=== PATIENT | male | born 1940 | race Caucasian/White ===

== ENCOUNTER → 2018-09-04 | Outpatient (CLI) | payer MEDICARE, OTHER ==
[~2018-09-04] MED LIST: ACHD5005 PO; ACHYD1T PO; AZIT250T12 PO; CALC-654 PO; CEPH-507 PO; CHOL10003 PO; CHOL10007 PO; CLOT15CR6 TOP; CPR500T PO; CYAN10006 PO; DILT120T11 PO; DILT120T3 PO; DILT300C PO; DOXY100C2 PO; HYOS0.1216 PO; MINO100C2 PO; MULT-1061 PO; MULT-850 PO; NITR-65 PO; ONDN4T PO; PANT20TA2 PO; PHEN200T27 PO; TAMS0.4C2 PO; TMSL.4C PO; TRAM50TA2 PO; TRIA1CAP4 PO; TRIA1TAB3 PO
--- NOTE | 2018-09-04 12:56 | Diagnostic Imaging Report ---
PROCEDURE: CT abdomen and pelvis without contrast. TECHNIQUE: Multiple contiguous axial images were obtained through the abdomen and pelvis without the use of intravenous contrast. INDICATION: Prostate carcinoma and hematuria. COMPARISON: Comparison is made with prior CT from 11/12/2015. FINDINGS: There is some linear parenchymal density in left lower lobe suggestive of some scarring or atelectasis. Tiny subpleural nodule right middle lobe laterally is seen approximately 4 mm in size. Additional nodule just superior to this is seen in the lateral right middle lobe approximately 4 mm in size. These appear stable when compared with the prior exam. There are coronary arterial calcifications present. No discrete liver mass is seen. The gallbladder is unremarkable. The pancreas and spleen are unremarkable. No adrenal mass is identified. No renal calculi are seen. There is significant hydroureteronephrosis on the left side. 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 Left ureter is markedly dilated to the level of the bladder. Bladder is decompressed but diffusely thickwalled. There is hazy density identified in the central mesentery. There is also stranding in the fat in the pelvis as well. There is bulky lymphadenopathy identified in the left inguinal region as well as the left iliac region. Largest left inguinal node measures 4.4 x 2.5 cm. There appear to be enlarged iliac nodes on the left side. Largest node measures 3.1 x 1.5 cm. The ureter passes in close proximity to this node. No significant pathologically enlarged nodes in the central retroperitoneum are seen. Bowel loops are nondilated. There is diverticulosis of the sigmoid but no acute diverticulitis. There is no ascites. There are radiation seed implants within the prostate gland. No definite osteoblastic lesions within the visualized bony structures seen. There is edema identified in the subcutaneous tissues of the left lower extremity. IMPRESSION: 1. There has been interval development of left inguinal and left iliac lymphadenopathy. There is now significant left-sided hydroureteronephrosis. A dilated ureter is traced to the urinary bladder which appears to be diffusely thick walled. There is also edema throughout the mesentery and subcutaneous tissues of the left lower extremity, perhaps owing to lymphedema. Features are concerning for developing metastatic disease. 2. Diverticulosis without evidence of acute diverticulitis. Dictated by: Dictated on workstation # [id number]
== END ==
LOC: RAD 12:01
PROVIDERS: ATTEND Internal Medicine
DX: C61 Malignant neoplasm of prostate (principal); N13.30 Unspecified hydronephrosis; K57.30 Diverticulosis of large intestine without perforation or abscess without bleeding; R31.9 Hematuria, unspecified; R59.0 Localized enlarged lymph nodes; R60.0 Localized edema
CPT/HCPCS: 74176

== ENCOUNTER 2018-09-18 10:38 | Outpatient (CLI) | payer MEDICARE ==
[~2018-09-18] VITALS: Ht 182.9 cm; Wt 101.6 kg
[~2018-09-18 10:38] MED LIST changes: -NITR-65 PO; -ONDN4T PO; -TRAM50TA2 PO
== END 2018-09-18 10:54 | disposition home or self-care (01) ==
LOC: PREOP 10:38
PROVIDERS: ATTEND Surgery
DX: Z01.818 Encounter for other preprocedural examination (principal)

== ENCOUNTER 2018-09-19 09:01 | Inpatient (IN) | payer MEDICARE ==
[~2018-09-19] VITALS: Ht 182.9 cm; Wt 106.7 kg
--- OUTSIDE RECORDS SUMMARY | 2018-09-19 09:06 | XMS REPORT | Continuity of Care Document ---
Author Author [facility] Organization [facility] Address Unknown Phone Unavailable Allergies Active Description Code Type Severity Reaction Onset Reported/Identified Relationship to Patient Clinical Status Yes No Known Drug Allergies [id number] Drug Allergy Unknown N/A 11/13/2012 Medications There is no data. Problems Date Dx Coded Attending Type Code Diagnosis Diagnosed By 11/24/2012 Ot 185 12/11/2012 Ot 185 03/22/2013 Ot 185 MALIGN NEOPL PROSTATE 03/22/2013 Ot V58.0 ENCOUNTER FOR RADIOTHERAPY 06/12/2013 JEANMARIE TAVARES MD Ot 211.3 BENIGN NEOPLASM LG BOWEL 06/12/2013 JEANMARIE TAVARES MD Ot 562.10 DIVERTICULOSIS COLON (W/O MENT OF HEMORR 06/12/2013 JEANMARIE TAVARES MD Ot V76.51 SCREEN MAL NEOP-COLON 01/24/2014 JEFRY DUFF DO Ot 706.2 SEBACEOUS CYST 11/13/2014 SANDRINE YOUSSEF, AUGUSTINA Colon Ot 185 11/13/2014 AUGUSTINA DELUCA MD Ot 562.10 02/04/2015 MATTEO YOUSSEF, DANIELA Penn Ot 185 03/09/2015 MATTEO YOUSSEF, DANIELA Penn Ot 185 MALIGN NEOPL PROSTATE 08/13/2015 GERMAN GARZON DO Ot 786.50 09/25/2015 GERMAN GARZON DO Ot I73.9 09/25/2015 GERMAN GARZON DO Ot R06.00 10/06/2015 GERMAN GARZON DO Ot I73.9 10/06/2015 GERMAN GARZON DO Ot R06.00 10/20/2015 GERMAN GARZON DO Ot R60.0 11/06/2015 GERMAN GARZON DO Ot R60.0 11/12/2015 Ot 185 11/12/2015 Ot 185 11/12/2015 Ot V72.63 11/12/2015 Ot V72.81 11/12/2015 Ot 704.8 11/12/2015 MATTEO YOUSSEF, DANIELA Penn Ot 185 11/12/2015 GERMAN GARZON DO Ot 562.10 11/12/2015 GERMAN GARZON DO Ot 571.8 11/12/2015 ANUSHA YOUSSEF, JEANMARIE Hatch Ot V72.84 11/12/2015 JEFRY DUFF DO Ot 706.2 11/12/2015 DUFFJEFRY BATEMAN DO Ot V72.63 11/12/2015 DUFFJEFRY BATEMAN DO Ot V72.81 11/12/2015 DUFFJEFRY BATEMAN DO Ot V72.84 11/12/2015 DUFFJEFRY BATEMAN DO Ot V74.8 11/12/2015 SANDRINE YOUSSEF, AUGUSTINA Colon Ot 185 11/12/2015 SANDRINE YOUSSEF, AUGUSTINA Colon Ot 562.10 11/12/2015 MATTEO YOUSSEF, DANIELA Penn Ot 185 11/12/2015 GARZONGERMAN BROWN DO Ot 786.50 11/12/2015 GERMAN GARZON DO Ot I73.9 11/12/2015 GERMAN GARZON DO Ot R06.00 11/12/2015 GARZONGERMAN BROWN DO Ot I73.9 11/12/2015 GARZONGERMAN BROWN DO Ot R06.00 11/12/2015 GERMAN GARZON DO Ot R60.0 11/14/2015 GERMAN GARZON DO Ot I89.0 12/25/2015 GERMAN GARZON DO Ot I89.0 09/01/2018 MATTEO YOUSSEF, DANIELA Penn Ot 185 MALIGN NEOPL PROSTATE 09/01/2018 GERMAN GARZON DO Ot 562.10 DIVERTICULOSIS COLON (W/O MENT OF HEMORR 09/01/2018 GERMAN GARZON DO Ot 571.8 CHRONIC LIVER DIS NEC 09/01/2018 ANUSHA YOUSSEF, JEANMARIE Hatch Ot V72.84 EXAM PRE-OPERATIVE NOS 09/01/2018 JEFRY DUFF DO Ot 706.2 SEBACEOUS CYST 09/01/2018 JEFRY DUFF DO Ot V72.63 PRE-PROCEDURAL LABORATORY EXAMINATION 09/01/2018 JEFRY DUFF DO Ot V72.81 [id number] CARDIOVASCULAR 09/01/2018 JEFRY DUFF DO Ot V72.84 EXAM PRE-OPERATIVE NOS 09/01/2018 JEFRY DUFF DO Ot V74.8 SCREEN-BACTERIAL DIS NEC 09/01/2018 SANDRINE YOUSSEF, AUGUSTINA Colon Ot 185 MALIGN NEOPL PROSTATE 09/01/2018 SANDRINE YOUSSEF, AUGUSTINA Colon Ot 562.10 DIVERTICULOSIS COLON (W/O MENT OF HEMORR 09/01/2018 MATTEO YOUSSEF, DANIELA Penn Ot 185 MALIGN NEOPL PROSTATE 09/01/2018 GERMAN GARZON DO Ot 786.50 CHEST PAIN NOS 09/01/2018 GERMAN GARZON DO Ot I73.9 PERIPHERAL VASCULAR DISEASE, UNSPECIFIED 09/01/2018 GERMAN GARZON DO Ot R06.00 DYSPNEA, UNSPECIFIED 09/01/2018 GERMAN GARZON DO Ot I73.9 PERIPHERAL VASCULAR DISEASE, UNSPECIFIED 09/01/2018 GERMAN GARZON DO Ot R06.00 DYSPNEA, UNSPECIFIED 09/01/2018 GERMAN GARZON DO Ot R60.0 LOCALIZED EDEMA 09/01/2018 GERMAN GARZON DO Ot I89.0 LYMPHEDEMA, NOT ELSEWHERE CLASSIFIED 09/06/2018 GERMAN GARZON DO Ot C61 MALIGNANT NEOPLASM OF PROSTATE 09/06/2018 GERMAN GARZON DO Ot K57.30 DVRTCLOS OF LG INT W/O PERFORATION OR AB 09/06/2018 GERMAN GARZON DO Ot N13.30 UNSPECIFIED HYDRONEPHROSIS 09/06/2018 GERMAN GARZON DO Ot R31.9 HEMATURIA, UNSPECIFIED 09/06/2018 GERMAN GARZON DO Ot R59.0 LOCALIZED ENLARGED LYMPH NODES 09/06/2018 GERMAN GARZON DO Ot R60.0 LOCALIZED EDEMA 09/15/2018 MATTEO YOUSSEF, DANIELA Penn Ot 185 MALIGN NEOPL PROSTATE 09/15/2018 GERMAN GARZON DO Ot 562.10 DIVERTICULOSIS COLON (W/O MENT OF HEMORR 09/15/2018 GERMAN GARZON DO Ot 571.8 CHRONIC LIVER DIS NEC 09/15/2018 ANUSHA YOUSSEF, JEANMARIE Hatch Ot V72.84 EXAM PRE-OPERATIVE NOS 09/15/2018 JEFRY DUFF DO Ot 706.2 SEBACEOUS CYST 09/15/2018 JEFRY DUFF DO Ot V72.63 PRE-PROCEDURAL LABORATORY EXAMINATION 09/15/2018 JEFRY DUFF DO Ot V72.81 [id number] CARDIOVASCULAR 09/15/2018 JEFRY DUFF DO Ot V72.84 EXAM PRE-OPERATIVE NOS 09/15/2018 DUFFJEFRY BATEMAN DO Ot V74.8 SCREEN-BACTERIAL DIS NEC 09/15/2018 SANDRINE YOUSSEF, AUGUSTINA Colon Ot 185 MALIGN NEOPL PROSTATE 09/15/2018 SANDRINE YOUSSEF, AUGUSTINA Colon Ot 562.10 DIVERTICULOSIS COLON (W/O MENT OF HEMORR 09/15/2018 MATTEO YOUSSEF, DANIELA Penn Ot 185 MALIGN NEOPL PROSTATE 09/15/2018 GERMAN GARZON DO Ot 786.50 CHEST PAIN NOS 09/15/2018 GERMAN GARZON DO Ot I73.9 PERIPHERAL VASCULAR DISEASE, UNSPECIFIED 09/15/2018 GERMAN GARZON DO Ot R06.00 DYSPNEA, UNSPECIFIED 09/15/2018 GERMAN GARZON DO, Ot I73.9 PERIPHERAL VASCULAR DISEASE, UNSPECIFIED 09/15/2018 GERMAN GARZON DO, Ot R06.00 DYSPNEA, UNSPECIFIED 09/15/2018 GERMAN GARZON DO Ot R60.0 LOCALIZED EDEMA 09/15/2018 GERMAN GARZON DO Ot I89.0 LYMPHEDEMA, NOT ELSEWHERE CLASSIFIED 09/15/2018 GERMAN GARZON DO Ot C61 MALIGNANT NEOPLASM OF PROSTATE 09/15/2018 GERMAN GARZON DO Ot K57.30 DVRTCLOS OF LG INT W/O PERFORATION OR AB 09/15/2018 GERMAN GARZON DO Ot N13.30 UNSPECIFIED HYDRONEPHROSIS 09/15/2018 GERMAN GARZON DO Ot R31.9 HEMATURIA, UNSPECIFIED 09/15/2018 GERMAN GARZON DO Ot R59.0 LOCALIZED ENLARGED LYMPH NODES 09/15/2018 GERMAN GARZON DO Ot R60.0 LOCALIZED EDEMA 09/15/2018 IRLANDA UMAÑA MD Ot C61 MALIGNANT NEOPLASM OF PROSTATE 09/15/2018 IRLANDA UMAÑA MD Ot E87.6 HYPOKALEMIA 09/15/2018 IRLANDA UMAÑA MD Ot I10 ESSENTIAL (PRIMARY) HYPERTENSION 09/15/2018 IRLANDA UMAÑA MD Ot I89.0 LYMPHEDEMA, NOT ELSEWHERE CLASSIFIED 09/15/2018 IRLANDA UMAÑA MD Ot K57.30 DVRTCLOS OF LG INT W/O PERFORATION OR AB 09/15/2018 IRLANDA UMAÑA MD Ot K80.20 CALCULUS OF GALLBLADDER W/O CHOLECYSTITI 09/15/2018 IRLANDA UMAÑA MD Ot N13.30 UNSPECIFIED HYDRONEPHROSIS 09/15/2018 IRLANDA UMAÑA MD Ot R11.2 NAUSEA WITH VOMITING, UNSPECIFIED 09/15/2018 IRLANDA UAMÑA MD Ot R21 RASH AND OTHER NONSPECIFIC SKIN ERUPTION 09/15/2018 IRLANDA UMAÑA MD Ot R59.0 LOCALIZED ENLARGED LYMPH NODES 09/15/2018 IRLANDA UMAÑA MD Ot Z92.3 PERSONAL HISTORY OF IRRADIATION 09/19/2018 MATTEO YOUSSEF, DANIELA Penn Ot 185 MALIGN NEOPL PROSTATE 09/19/2018 GERMAN GARZON DO Ot 562.10 DIVERTICULOSIS COLON (W/O MENT OF HEMORR 09/19/2018 GERMAN GARZON DO Ot 571.8 CHRONIC LIVER DIS NEC 09/19/2018 ANUSHA YOUSSEF, JEANMARIE Hatch Ot V72.84 EXAM PRE-OPERATIVE NOS 09/19/2018 JEFRY DUFF DO Ot 706.2 SEBACEOUS CYST 09/19/2018 JEFRY DUFF DO Ot V72.63 PRE-PROCEDURAL LABORATORY EXAMINATION 09/19/2018 JEFRY DUFF DO Ot V72.81 [id number]-[id number] CARDIOVASCULAR 09/19/2018 JEFRY DUFF DO Ot V72.84 EXAM PRE-OPERATIVE NOS 09/19/2018 JEFRY DUFF DO Ot V74.8 SCREEN-BACTERIAL DIS NEC 09/19/2018 AUGUSTINA DELUCA MD Ot 185 MALIGN NEOPL PROSTATE 09/19/2018 AUGUSTINA DELUCA MD Ot 562.10 DIVERTICULOSIS COLON (W/O MENT OF HEMORR 09/19/2018 DANIELA FELIPE MD Ot 185 MALIGN NEOPL PROSTATE 09/19/2018 GERMAN GARZON DO Ot 786.50 CHEST PAIN NOS 09/19/2018 GERMAN GARZON DO Ot I73.9 PERIPHERAL VASCULAR DISEASE, UNSPECIFIED 09/19/2018 GERMAN GARZON DO Ot R06.00 DYSPNEA, UNSPECIFIED 09/19/2018 GERMAN GARZON DO Ot I73.9 PERIPHERAL VASCULAR DISEASE, UNSPECIFIED 09/19/2018 RYANN VILLALOBOS GERMAN [place] Ot R06.00 DYSPNEA, UNSPECIFIED 09/19/2018 RYANN VILLALOBOS GERMAN Wil Ot R60.0 LOCALIZED EDEMA 09/19/2018 GARZON DO GERMAN [place] Ot I89.0 LYMPHEDEMA, NOT ELSEWHERE CLASSIFIED 09/19/2018 RYANN VILLALOBOS GERMAN Wil Ot C61 MALIGNANT NEOPLASM OF PROSTATE 09/19/2018 RYANN VILLALOBOS GERMAN Wil Orellana K57.30 DVRTCLOS OF LG INT W/O PERFORATION OR AB 09/19/2018 RYANN VILLALOBOS GERMAN Wil Ot N13.30 UNSPECIFIED HYDRONEPHROSIS 09/19/2018 RYANN VILLALOBOS GERMAN Wil Ot R31.9 HEMATURIA, UNSPECIFIED 09/19/2018 RYANN VILLALOBOS GERMAN Wil Ot R59.0 LOCALIZED ENLARGED LYMPH NODES 09/19/2018 RYANN VILLALOBOS GERMAN Wil Orellana R60.0 LOCALIZED EDEMA Procedures There is no data. Results Test Result Range Complete blood count (CBC) with automated white blood cell (WBC) differential - 09/14/18 21:39 Blood leukocytes automated count (number/volume) 8.4 10*3/uL 4.3-11.0 Blood erythrocytes automated count (number/volume) 5.21 10*6/uL 4.35-5.85 Venous blood hemoglobin measurement (mass/volume) 14.5 g/dL 13.3-17.7 Blood hematocrit (volume fraction) 43 % 40-54 Automated erythrocyte mean corpuscular volume 83 [foz_us] 80-99 Automated erythrocyte mean corpuscular hemoglobin (mass per erythrocyte) 28 pg 25-34 Automated erythrocyte mean corpuscular hemoglobin concentration measurement ( mass/volume) 33 g/dL 32-36 Automated erythrocyte distribution width ratio 14.6 % 10.0-14.5 Automated blood platelet count (count/volume) 320 10*3/uL 130-400 Automated blood platelet mean volume measurement 9.0 [foz_us] 7.4-10.4 Automated blood neutrophils/100 leukocytes 74 % 42-75 Automated blood lymphocytes/100 leukocytes 15 % 12-44 Blood monocytes/100 leukocytes 8 % 0-12 Automated blood eosinophils/100 leukocytes 2 % 0-10 Automated blood basophils/100 leukocytes 1 % 0-10 Blood neutrophils automated count (number/volume) 6.2 10*3 1.8-7.8 Blood lymphocytes automated count (number/volume) 1.3 10*3 1.0-4.0 Blood monocytes automated count (number/volume) 0.7 10*3 0.0-1.0 Automated eosinophil count 0.2 10*3/uL 0.0-0.3 Automated blood basophil count (count/volume) 0.1 10*3/uL 0.0-0.1 Comprehensive metabolic panel - 09/14/18 21:39 Serum or plasma sodium measurement (moles/volume) 138 mmol/L 135-145 Serum or plasma potassium measurement (moles/volume) 3.1 mmol/L 3.6-5.0 Serum or plasma chloride measurement (moles/volume) 100 mmol/L 98-107 Carbon dioxide 26 mmol/L 21-32 Serum or plasma anion gap determination (moles/volume) 12 mmol/L 5-14 Serum or plasma urea nitrogen measurement (mass/volume) 11 mg/dL 7-18 Serum or plasma creatinine measurement (mass/volume) 1.13 mg/dL 0.60-1.30 Serum or plasma urea nitrogen/creatinine mass ratio 10 NRG Serum or plasma creatinine measurement with calculation of estimated glomerular filtration rate > NRG Serum or plasma glucose measurement (mass/volume) 147 mg/dL 70-105 Serum or plasma calcium measurement (mass/volume) 9.5 mg/dL 8.5-10.1 Serum or plasma total bilirubin measurement (mass/volume) 0.3 mg/dL 0.1-1.0 Serum or plasma alkaline phosphatase measurement (enzymatic activity/volume) 82 U/L 40-136 Serum or plasma aspartate aminotransferase measurement (enzymatic activity/ volume) 22 U/L 5-34 Serum or plasma alanine aminotransferase measurement (enzymatic activity/volume ) 11 U/L 0-55 Serum or plasma protein measurement (mass/volume) 8.2 g/dL 6.4-8.2 Serum or plasma albumin measurement (mass/volume) 3.9 g/dL 3.2-4.5 CALCIUM CORRECTED 9.6 mg/dL 8.5-10.1 Magnesium - 09/14/18 21:39 Magnesium 2.0 mg/dL 1.8-2.4 Serum or plasma troponin i.cardiac measurement (mass/volume) - 09/14/18 21:39 Serum or plasma troponin i.cardiac measurement (mass/volume) < ng/ mL <0.30 PT panel in platelet poor plasma by coagulation assay - 09/14/18 21:39 Prothrombin time (PT) in platelet poor plasma by coagulation assay 12.8 s 12.2-14.7 INR in platelet poor plasma or blood by coagulation assay 1.0 0.8-1.4 Activated partial thromboplastin time (aPTT) in platelet poor plasma bycoagulation assay - 09/14/18 21:39 Activated partial thromboplastin time (aPTT) in platelet poor plasma bycoagulation assay 31 s 24-35 Myoglobin, serum - 09/14/18 21:39 Myoglobin, serum 49.6 ng/mL 10.0-92.0 Lipase - 09/14/18 21:39 Lipase 34 U/L 8-78 Bacterial blood culture - 09/15/18 00:17 Bacterial blood culture [facility] Blood lactic acid measurement (moles/volume) - 09/15/18 00:27 Blood lactic acid measurement (moles/volume) 1.51 mmol/L 0.50-2.00 Bacterial blood culture - 09/15/18 01:17 Bacterial blood culture [facility] Complete blood count (CBC) with automated white blood cell (WBC) differential - 09/15/18 03:10 Blood leukocytes automated count (number/volume) 11.6 10*3/uL 4.3-11.0 Blood erythrocytes automated count (number/volume) 4.70 10*6/uL 4.35-5.85 Venous blood hemoglobin measurement (mass/volume) 13.0 g/dL 13.3-17.7 Blood hematocrit (volume fraction) 40 % 40-54 Automated erythrocyte mean corpuscular volume 84 [foz_us] 80-99 Automated erythrocyte mean corpuscular hemoglobin (mass per erythrocyte) 28 pg 25-34 Automated erythrocyte mean corpuscular hemoglobin concentration measurement ( mass/volume) 33 g/dL 32-36 Automated erythrocyte distribution width ratio 14.4 % 10.0-14.5 Automated blood platelet count (count/volume) 251 10*3/uL 130-400 Automated blood platelet mean volume measurement 9.5 [foz_us] 7.4-10.4 Automated blood neutrophils/100 leukocytes 88 % 42-75 Automated blood lymphocytes/100 leukocytes 5 % 12-44 Blood monocytes/100 leukocytes 7 % 0-12 Automated blood eosinophils/100 leukocytes 0 % 0-10 Automated blood basophils/100 leukocytes 0 % 0-10 Blood neutrophils automated count (number/volume) 10.1 10*3 1.8-7.8 Blood lymphocytes automated count (number/volume) 0.6 10*3 1.0-4.0 Blood monocytes automated count (number/volume) 0.8 10*3 0.0-1.0 Automated eosinophil count 0.0 10*3/uL 0.0-0.3 Automated blood basophil count (count/volume) 0.0 10*3/uL 0.0-0.1 Comprehensive metabolic panel - 09/15/18 03:10 Serum or plasma sodium measurement (moles/volume) 137 mmol/L 135-145 Serum or plasma potassium measurement (moles/volume) 3.4 mmol/L 3.6-5.0 Serum or plasma chloride measurement (moles/volume) 100 mmol/L 98-107 Carbon dioxide 26 mmol/L 21-32 Serum or plasma anion gap determination (moles/volume) 11 mmol/L 5-14 Serum or plasma urea nitrogen measurement (mass/volume) 10 mg/dL 7-18 Serum or plasma creatinine measurement (mass/volume) 0.93 mg/dL 0.60-1.30 Serum or plasma urea nitrogen/creatinine mass ratio 11 NRG Serum or plasma creatinine measurement with calculation of estimated glomerular filtration rate > NRG Serum or plasma glucose measurement (mass/volume) 126 mg/dL 70-105 Serum or plasma calcium measurement (mass/volume) 9.0 mg/dL 8.5-10.1 Serum or plasma total bilirubin measurement (mass/volume) 0.4 mg/dL 0.1-1.0 Serum or plasma alkaline phosphatase measurement (enzymatic activity/volume) 69 U/L 40-136 Serum or plasma aspartate aminotransferase measurement (enzymatic activity/ volume) 21 U/L 5-34 Serum or plasma alanine aminotransferase measurement (enzymatic activity/volume ) 11 U/L 0-55 Serum or plasma protein measurement (mass/volume) 6.9 g/dL 6.4-8.2 Serum or plasma albumin measurement (mass/volume) 3.4 g/dL 3.2-4.5 CALCIUM CORRECTED 9.5 mg/dL 8.5-10.1 Lipid 1996 panel - 09/15/18 03:10 Serum or plasma triglyceride measurement (mass/volume) 92 mg/dL <150 Serum or plasma cholesterol measurement (mass/volume) 194 mg/dL < 200 Serum or plasma cholesterol in HDL measurement (mass/volume) 51 mg/ dL 40-60 Cholesterol in LDL [mass/volume] in serum or plasma by direct assay 127 mg/dL 1-129 Serum or plasma cholesterol in VLDL measurement (mass/volume) 18 mg/ dL 5-40 Blood manual differential performed detection - 09/15/18 03:10 Blood monocytes/100 leukocytes 4 % NRG Manual blood segmented neutrophils/100 leukocytes 89 % NRG Blood band neutrophils/100 leukocytes 3 % NRG Manual blood lymphocytes/100 leukocytes 4 % NRG Manual eosinophils/100 leukocytes in nose 0 % NRG Manual blood basophils/100 leukocytes 0 % NRG Blood ovalocytes detection by light microscopy SLIGHT NRG Serum or plasma troponin i.cardiac measurement (mass/volume) - 09/15/18 03:10 Serum or plasma troponin i.cardiac measurement (mass/volume) < ng/ mL <0.30 Encounters ACCT No. Visit Date/Time Discharge Status Pt. Type Provider Facility Loc./Unit Complaint [id number] 09/18/2018 10:38:00 09/18/2018 10:54:00 DIS Outpatient MALORIE YOUSSEF, [place] [facility] PREOP CHLELITHIASIS [id number] 09/15/2018 00:27:00 09/15/2018 18:00:00 DIS Inpatient CHASIDY YOUSSEF, IRLANDA [place] [facility] 4TH CHEST PAIN,N/V,METS PROSTATE CA [id number] 09/04/2018 12:01:00 09/04/2018 23:59:59 CLS Outpatient GERMAN GARZON DO [facility] RAD CA PROSTATE, HEMATURIA [id number] 11/12/2015 13:52:00 11/12/2015 23:59:59 CLS Outpatient GERMAN GARZON DO [facility] RAD LYMPHODEMA [id number] 10/16/2015 09:18:00 10/16/2015 23:59:59 CLS Outpatient GERMAN GARZON DO [facility] RAD EDEMA LEFT CALF AND FOOT [id number] 09/09/2015 09:16:00 09/09/2015 23:59:59 CLS Outpatient GARZON DO, GERMAN J [facility] RAD DYSPNEA,CLAUDICATION [id number] 09/05/2015 11:04:00 09/05/2015 23:59:59 CLS Outpatient GERMAN GARZON DO [facility] RAD DYSPNEA, CLAUDICATION , SYMPTOM [id number] 07/22/2015 14:20:00 07/22/2015 23:59:59 CLS Outpatient GERMAN GARZON DO [facility] CARD CHEST PAIN [id number] 03/10/2015 00:08:00 03/10/2015 23:59:59 CLS Preadmit DANIELA FELIPE MD [facility] ONC [id number] 12/09/2014 09:50:00 03/09/2015 00:01:00 DIS Outpatient DANIELA FELIPE MD [facility] ONC [id number] 10/23/2014 12:05:00 10/23/2014 23:59:59 CLS Outpatient AUGUSTINA DELUCA MD [facility] CARD PROSTATE CANCER [id number] 01/24/2014 06:15:00 01/24/2014 11:42:00 DIS Outpatient JEFRY DUFF DO [facility] SDC CYST ON BACK [id number] 01/23/2014 09:44:00 01/23/2014 23:59:59 CLS Outpatient JEFRY DUFF DO [facility] PREOP CYST ON BACK [id number] 06/12/2013 07:48:00 06/12/2013 09:55:00 DIS Outpatient JEANMARIE TAVARES MD [facility] SDC SCREENING [id number] 06/07/2013 07:15:00 06/07/2013 23:59:59 CLS Outpatient JEANMARIE TAVARES MD [facility] PREOP SCREENING [id number] 05/22/2013 08:14:00 05/22/2013 23:59:59 CLS Outpatient GERMAN GARZON DO [facility] RAD LT LOWER QUAD PAIN [id number] 05/21/2013 09:04:00 05/21/2013 23:59:59 CLS Outpatient DANIELA FELIPE MD E [facility] ONC [id number] 09/19/2018 09:01:00 ACT Outpatient MALORIE YOUSSEF, [place] [facility] SDC CHOLELITHIASIS [id number] 01/17/2013 16:18:00 Document Registration [id number] 12/22/2012 08:48:00 Document Registration [id number] 11/24/2012 06:00:00 Document Registration [id number] 11/13/2012 15:29:00 Document Registration [id number] 09/12/2012 08:50:00 Document Registration [id number] 08/25/2012 11:16:00 Document Registration
[2018-09-19 09:15] VITALS: BP 144/84
[2018-09-19] MEDS ORDERED: BUP/EPI 0.5% 1:200,000 (SENSORCAINE) 30 ML VIAL ONE (09:15)
--- NOTE | 2018-09-19 09:28 | Progress Note-Pre Operative ---
Pre-Operative Progress Note H&P Reviewed The H&P was reviewed, patient examined and no changes noted. Date Seen by Provider: Sep 15, 2018 Time Seen by Provider: 11:20 Date H&P Reviewed: Sep 19, 2018 Time H&P Reviewed: 09:27 Pre-Operative Diagnosis: gallstones TC ESPANA MD Sep 19, 2018 09:28
[2018-09-19] MEDS ORDERED: DEXAMETHASONE 10 MG/ML (DECADRON) 1 ML VIAL ONE (09:36)
[2018-09-19] MEDS ORDERED: proPOfol 200 MG/20 ML (DIPRIVAN) VIAL IV ONE (09:36)
[2018-09-19] MEDS ORDERED: MIDAZOLAM 2 MG/2 ML (VERSED) VIAL ONE (09:36)
[2018-09-19] MEDS ORDERED: ONDANSETRON 4 MG/2 ML (SDV) Z0FRAN ONE (09:36)
[2018-09-19] MEDS ORDERED: LIDOCAINE PF 2% 5 ML (XYLOCAINE) VIAL ONE (09:36)
[2018-09-19] MEDS ORDERED: fentaNYL INJECTION 100 MCG/2 ML AMP ONE ×3 (09:36→11:12)
[2018-09-19] MEDS ORDERED: LIDOCAINE JELLY 2% 6 ML SYRINGE ONE (09:40)
[2018-09-19] MEDS: LACTATED RINGERS 1,000 ML IV PRN ×2 (09:40→11:30)
[2018-09-19] MEDS ORDERED: SEVOFLURANE (ULTANE) 15 ML INHAL SOLN ONE ×12 (09:43→12:56)
[2018-09-19] MEDS ORDERED: ROCURONIUM 10 MG/ML 5 ML SYRINGE IV ONE ×2 (09:44→11:28)
[2018-09-19] MEDS ORDERED: metroNIDAZOLE 500MG/100ML IVPB 100 ML IV ONE (10:00)
[2018-09-19] MEDS ORDERED: ceFAZolin INJECTION 1,000 MG in NS (IVPB) 50 ML IV ONE (10:00)
[2018-09-19] MEDS ORDERED: ONDANSETRON 4 MG/2 ML (SDV) Z0FRAN IVP PRN ×2 (10:15→13:45)
[2018-09-19] MEDS ORDERED: MEPERIDINE (DEMEROL) INJ 50 MG/ML IVP ONE ×2 (10:15→12:45)
[2018-09-19] MEDS ORDERED: morphine INJ 10 MG/ML 1ML (SYR OR VIAL) IVP ONE ×2 (10:15→12:45)
[2018-09-19] MEDS ORDERED: KETOROLAC 30 MG/ML VIAL IVP ONE ×2 (10:15→12:45)
[2018-09-19] MEDS ORDERED: ESMOLOL 100 MG/10 ML (BREVIBLOC) VIAL ONE (11:39)
[2018-09-19] MEDS ORDERED: PHENYLEPHRINE 100 MCG/ML 10 ML (ANESTHESIA) SYR ONE (12:08)
[2018-09-19] MEDS ORDERED: NEOSTIGMINE 1 MG/ML 5 ML SYRINGE ONE (12:31)
[2018-09-19] MEDS ORDERED: GLYCOPYRROLATE 0.2 MG/ML (ROBINUL) 2 ML VIAL ONE (12:31)
[2018-09-19] MEDS ORDERED: fentaNYL INJECTION 100 MCG/2 ML AMP IVP ONE (12:45)
--- NOTE | 2018-09-19 13:43 | Operative Report ---
Operative Report Date of Procedure/Surgery Sep 19, 2018 Surgeon (s) TC ESPANA MD Stripper Opaquer (s): N/A Post-Operative Diagnosis Acute gangrenous cholecystitis Procedure Performed Robotic converted to open cholecystectomy Description of Procedure Anesthesia Type: General Estimated blood loss (mL): minimal Specimen(s) collected/removed gallbladder with stones Description of the Procedure Indication for the procedure: This gentleman was scheduled to undergo an elective cholecystectomy using minimally invasive technique with robotic assistance. His ultrasound examination indicated uncomplicated gallstones. informed consent was obtained after reviewing the operative details and complications of wound infection, bile leak and cardia respiratory dysfunction. Description of the procedure: He was placed supine on the operating table and general anesthesia induced. Ancef and Flagyl were administered intravenously as prophylaxis against wound infection. Sequential compression devices were placed around his legs, to minimize the risk of venous thrombosis. Abdomen was prepared and draped in the usual sterile manner. A 5 mm vertical incision was made and the umbilicus itself and the fascia opened 5 blunt dissection. A 12 mm trocar was placed and pneumoperitoneum established using carbon dioxide, intra-abdominal pressure of 15 mmHg. Anatomy was visualized using the high definition, 3-dimensional laparoscope associated with da Floresita system. Omentum and transverse colon were adherent to the anterior abdominal wall, just adjacent to the falciform ligament. under direct view, I placed an 8 mm trocar over each side of the abdomen, followed by a 5 mm trocar over the left subcostal margin. Omentum was taken down by blunt dissection, without any iatrogenic injury to the transverse colon. Subsequently , the patient was turned in the reverse Trendelenburg position with the right side tilted and the robotic system docked in place. Omentum and transverse colon were gently from the subhepatic region, revealing a phlegmon containing a gangrenous gallbladder. It was decompressed at the fundus to facilitate dissection. Dissection progressed toward the neck of the gallbladder revealing gangrenous changes. 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 It became clear that progress could not be made by minimally invasive approach and therefore I elected to convert to an open technique. Open cholecystectomy: A subcostal incision was made and abdomen entered safely. Omentum and transverse colon were gently packed out of the way and a fundus first technique of cholecystectomy was performed. The phlegmon around Calot's triangle was carefully , revealing the cystic duct and artery. The latter was first controlled between ligaclips. Cystic duct was controlled using a total of 3 PDS Endoloops, reinforced with ligaclips. Subhepatic and the perihepatic areas were thoroughly irrigated with warm saline. A 10 [place] Rohit-Whatley drain was left in the subhepatic space in anticipation of bile leak. It was acute with 2-0 silk sutures. With reference to the subcostal incision, peritoneum was closed using 3-0 PDS. The fascial layer was closed using #2 Prolene and the subcutaneous tissue with 3 -0 PDS. Skin was closed using 4-0 Vicryl, in a subcuticular fashion. The fascia over the umbilical incision was closed using 1 Vicryl. All the other skin incisions were closed using 4-0 Vicryl, in a subcuticular fashion. 0.5 percent Marcaine with epinephrine was infiltrated along the incisions, both preemptively and at the conclusion of the operation. He tolerated the procedure well, was extubated in the operating room and taken to the recovery room in a stable condition. Findings of the Procedure See op report Allergies and Home Medications Allergies Coded Allergies: No Known Drug Allergies (Unverified , 11/13/12) Home Medications Calcium Carbonate/Vitamin D3 1 Each Tablet, 1 TAB PO DAILY, (Reported) Clotrimazole/Betamethasone Dip 15 Gm Cream..g., TOP HS, (Reported) Cyanocobalamin (Vitamin B-12) 1,000 Mcg Tablet, 1,000 MCG PO DAILY, (Reported) Diltiazem HCl 120 Mg Tablet, 120 MG PO BID, (Reported) Minocycline HCl 100 Mg Capsule, 100 MG PO DAILY, (Reported) Pantoprazole Sodium 20 Mg Tablet.dr, 20 MG PO DAILY Prescribed by: SUSY OLIVEIRA on 09/15/18 1442 Tamsulosin HCl 0.4 Mg Cap.er.24h, 0.4 MG PO DAILY, (Reported) Triamterene/Hydrochlorothiazid 1 Each Capsule, 1 CAP PO DAILY, (Reported) Patient Home Medication List Home Medication List Reviewed: Yes Copy Copies To 1: GERMAN GARZON DO Copies To 2: SUSY OLIVEIRA MD, XAVIER M MD Sep 19, 2018 13:43
[2018-09-19] MEDS ORDERED: fentaNYL INJECTION 100 MCG/2 ML AMP IV PRN (13:45)
[2018-09-19] MEDS ORDERED: PIPERACILLIN SODIUM/TAZOBACTAM 4.5 GM in NS (IVPB) 100 ML IV SCH (13:45)
[2018-09-19] MEDS ORDERED: HYDROcodone/APAP 5 MG/325 MG (LORTAB) TAB PO PRN (13:45)
[2018-09-19] MEDS: LACTATED RINGERS 1,000 ML IV SCH ×2 (14:41→20:11)
[2018-09-19] MEDS ORDERED: PIPERACILLIN/TAZO 4.5 GM/NS 100 ML IV NR ×2 (14:45)
[2018-09-19 15:00] VITALS: BP 147/89
[2018-09-19 17:00] VITALS: BP 138/86
[2018-09-19] MEDS: TAMSULOSIN 0.4 MG (FLOMAX) CAP PO SCH (18:04)
[2018-09-19] MEDS: PIPERACILLIN/TAZO 4.5 GM/NS 100 ML IV SCH ×2 (20:11)
[2018-09-19] MEDS: DILTIAZEM 120 MG (CARDIZEM CD) CAP PO SCH (20:12)
[2018-09-19 21:00] VITALS: BP 123/90
[2018-09-19 22:00] VITALS: BP 134/92
[2018-09-19 23:00] VITALS: BP 114/78
[2018-09-20] VITALS (13 sets, daily range): BP systolic 109–130; BP diastolic 67–86
[2018-09-20 04:02] LABS: BASOPHILS % (AUTO) 0 % (0-10); EOSINOPHILS % (AUTO) 0 % (0-10); HEMATOCRIT 37 % (40-54); HEMOGLOBIN 12.2 G/DL (13.3-17.7); LYMPHOCYTES # (AUTO) 0.7 X 10^3 (1.0-4.0); LYMPHOCYTES % (AUTO) 6 % (12-44); MEAN CORPUSCULAR HEMOGLOBIN 28 PG (25-34); MEAN CORPUSCULAR HGB CONC 33 G/DL (32-36); MEAN CORPUSCULAR VOLUME 84 FL (80-99); MEAN PLATELET VOLUME 9.1 FL (7.4-10.4); MONOCYTES # (AUTO) 0.8 X 10^3 (0.0-1.0); MONOCYTES % (AUTO) 7 % (0-12); NEUTROPHILS # (AUTO) 10.8 X 10^3 (1.8-7.8); NEUTROPHILS % (AUTO) 88 % (42-75); PLATELET COUNT 318 10^3/uL (130-400); RED BLOOD COUNT 4.43 10^6/uL (4.35-5.85); RED CELL DISTRIBUTION WIDTH 14.9 % (10.0-14.5); WHITE BLOOD COUNT 12.3 10^3/uL (4.3-11.0)
[2018-09-20 04:30] LABS: BAND NEUTROPHILS 0 %; BASOPHILS % (MANUAL) 0 %; EOSINOPHILS % (MANUAL) 0 %; LYMPHOCYTES % (MANUAL) 4 %; MONOCYTES % (MANUAL) 2 %; NEUTROPHILS % (MANUAL) 88 %; RBC MORPH NORMAL; REACTIVE LYMPHOCYTES 6 %
[2018-09-20 04:48] LABS: ALANINE AMINOTRANSFERASE 35 U/L (0-55); ALKALINE PHOSPHATASE 136 U/L (40-136); BILIRUBIN,TOTAL 0.4 MG/DL (0.1-1.0); BUN/CREATININE RATIO 18; CALCIUM 8.9 MG/DL (8.5-10.1); CARBON DIOXIDE 24 MMOL/L (21-32); CHLORIDE 99 MMOL/L (98-107); CREATININE SERUM 0.99 MG/DL (0.60-1.30); GFR ESTIMATED > 60; GLUCOSE 160 MG/DL (70-105); POTASSIUM 4.3 MMOL/L (3.6-5.0); SODIUM 134 MMOL/L (135-145); TOTAL PROTEIN 6.9 GM/DL (6.4-8.2)
[2018-09-20] MEDS: PIPERACILLIN/TAZO 4.5 GM/NS 100 ML IV SCH ×4 (05:35→12:59)
[2018-09-20] MEDS ORDERED: KCL 20 MEQ TAB (K-DUR) PO SCH (06:00)
[2018-09-20] MEDS ORDERED: MAGNESIUM 1 GM/100 ML IVPB 100 ML IV SCH (06:00)
[2018-09-20] MEDS ORDERED: POTASSIUM CL 10MEQ/50ML IVPB 50 ML IV SCH (06:00)
[2018-09-20] MEDS: CALCIUM CARB + VIT D 600 MG (CALCARB + D) TAB PO SCH (07:06)
[2018-09-20] MEDS: CYANOCOBALAMIN 1,000 MCG (VITAMIN B-12) TABLET PO SCH (07:06)
[2018-09-20] MEDS: TRIAMTERENE/HCTZ 75-50 (MAXZIDE,DYAZIDE) TABLET PO SCH (08:24)
[2018-09-20] MEDS: DILTIAZEM 120 MG (CARDIZEM CD) CAP PO SCH ×2 (08:24→20:26)
[2018-09-20] MEDS: PANTOPRAZOLE 20 MG TABLET (PROTONIX) PO SCH (08:24)
[2018-09-20] MEDS ORDERED: NON-FORMULARY MEDICATION 1 EA EA (Minocycline HCl 100 MG) PO SCH (09:00)
--- NOTE | 2018-09-20 10:17 | Diagnostic Imaging Report ---
Clinical indication: Patient postop laparoscopic cholecystectomy. Exam: Portable chest x-ray, upright view. Comparison: Portable chest x-ray dated 09/14/2018. Findings: There is progression of the low lung volumes seen bilaterally with suspected bibasilar atelectasis. There is no evidence of pleural effusion or pneumothorax. Pulmonary vasculature is within normal limits and cardiac silhouette is within normal limits for portable projection. The remainder of this exam shows no significant interval change compared to the prior study of comparison. Impression: Interval decreased lung volumes with suspected progression of bibasilar atelectasis. Dictated by: Dictated on workstation # [id number]
--- NOTE | 2018-09-20 10:43 | Anesthesia-General Post-Op ---
General Patient Condition Mental Status/LOC: Same as Preop Cardiovascular: Satisfactory Nausea/Vomiting: Absent Respiratory: Satisfactory Pain: Controlled Complications: Absent Post Op Complications Complications None Follow Up Care/Instructions Patient Instructions None needed. Anesthesia/Patient Condition Patient Condition Patient is doing well, no complaints, stable vital signs, no apparent adverse anesthesia problems. No complications reported per nursing. LUCA MEDLEY CRNA Sep 20, 2018 10:43
[2018-09-20] MEDS ORDERED: MAGNESIUM CITRATE 300 ML BTL PO NR (14:15)
--- NOTE | 2018-09-20 14:21 | Progress Note-Standard ---
Standard Progress Note Progress Notes/Assess & Plan Date Seen by a Provider: Sep 20, 2018 Time Seen by a Provider: 14:20 Progress/Assessment & Plan no specific symptoms. Afebrile. Vital signs are stable. Minimal output from the drain with no bile. Incisions dry. Lungs clear. Encouraged increased use of spirometry and ambulation. Advance diet. Final Diagnosis acute gangrenous cholecystitis TC ESPANA MD Sep 20, 2018 14:21
[2018-09-20] MEDS: TAMSULOSIN 0.4 MG (FLOMAX) CAP PO SCH (17:38)
[2018-09-21] VITALS: BP 133/71
[2018-09-21 04:33] VITALS: BP 134/69
[2018-09-21] MEDS: CYANOCOBALAMIN 1,000 MCG (VITAMIN B-12) TABLET PO SCH (06:25)
[2018-09-21] MEDS: CALCIUM CARB + VIT D 600 MG (CALCARB + D) TAB PO SCH (06:25)
[2018-09-21] MEDS: PANTOPRAZOLE 20 MG TABLET (PROTONIX) PO SCH (06:25)
[2018-09-21] MEDS ORDERED: MAGNESIUM CITRATE 300 ML BTL PO NR (08:00)
[2018-09-21 08:07] VITALS: BP 128/66
[2018-09-21] MEDS: DILTIAZEM 120 MG (CARDIZEM CD) CAP PO SCH (08:07)
[2018-09-21] MEDS: TRIAMTERENE/HCTZ 75-50 (MAXZIDE,DYAZIDE) TABLET PO SCH (08:07)
--- NOTE | 2018-09-21 08:52 | Progress Note-Standard ---
Standard Progress Note Progress Notes/Assess & Plan Date Seen by a Provider: Sep 21, 2018 Time Seen by a Provider: 08:52 Progress/Assessment & Plan no specific symptoms. Afebrile. Vital signs are stable. Minimal output from the drain with no bile. Incisions dry. Lungs clear. Encouraged increased use of spirometry and ambulation. Advance diet. Afebrile, no bile in the drain. Pain control adequate. Motivated to be discharged. Final Diagnosis Acute gangrenous cholecystitis TC ESPANA MD Sep 21, 2018 08:52
--- NOTE | 2018-09-21 08:55 | Discharge Summary ---
Diagnosis/Chief Complaint Date of Admission Sep 20, 2018 at 10:20 Date of Discharge 09/21/18 Discharge Date: Sep 21, 2018 Discharge Time: 08:53 Admission Diagnosis Admission Diagnosis Gallstones Discharge Diagnosis Acute gangrenous cholecystitis due to gallstones Reason Hospital Visit Admitted electively to undergo cholecystectomy, found to have a gangrenous cholecystitis, requiring conversion to an open procedure Discharge Summary Procedures Robotic converted to open cholecystectomy Consultations None Discharge Physical Examination Allergies: Coded Allergies: No Known Drug Allergies (Unverified , 11/13/12) Vitals & I&Os Vital Signs Date Time Temp Pulse Resp B/P (MAP) Pulse Ox O2 Delivery O2 Flow Rate FiO2 09/21/18 08:07 96.8 92 24 128/66 (86) 93 Room Air 09/19/18 15:04 4.00 Hospital Course Labs (last 24 hrs) Laboratory Tests 09/20/18 03:55: White Blood Count 12.3H, Red Blood Count 4.43, Hemoglobin 12.2L, Hematocrit 37L , Mean Corpuscular Volume 84, Mean Corpuscular Hemoglobin 28, Mean Corpuscular Hemoglobin Concent 33, Red Cell Distribution Width 14.9H, Platelet Count 318, Mean Platelet Volume 9.1, Neutrophils (%) (Auto) 88H, Lymphocytes (%) (Auto) 6L , Monocytes (%) (Auto) 7, Eosinophils (%) (Auto) 0, Basophils (%) (Auto) 0, Neutrophils # (Auto) 10.8H, Lymphocytes # (Auto) 0.7L, Monocytes # (Auto) 0.8, Eosinophils # (Auto) 0.0, Basophils # (Auto) 0.0, Neutrophils % (Manual) 88, Lymphocytes % (Manual) 4, Monocytes % (Manual) 2, Eosinophils % (Manual) 0, Basophils % (Manual) 0, Band Neutrophils 0, Reactive Lymphocytes 6, Blood Morphology Comment NORMAL, Sodium Level 134L, Potassium Level 4.3, Chloride Level 99, Carbon Dioxide Level 24, Anion Gap 11, Blood Urea Nitrogen 18, Creatinine 0.99, Estimat Glomerular Filtration Rate > 60, BUN/Creatinine Ratio 18, Glucose Level 160H, Calcium Level 8.9, Corrected Calcium 9.7, Magnesium Level 2.0, Total Bilirubin 0.4, Aspartate Amino Transf (AST/SGOT) 56H, Alanine Aminotransferase (ALT/SGPT) 35, Alkaline Phosphatase 136, Total Protein 6.9, Albumin 3.0L Microbiology 09/19/18 MRSA Screen - Final, Complete No growth Pending Labs Microbiology Date/Time Source Procedure Growth Status 09/19/18 09:36 Nasal MRSA Screen - Final No growth Complete Laboratory Tests 09/20/18 03:55: White Blood Count 12.3, Red Blood Count 4.43, Hemoglobin 12.2, Hematocrit 37, Mean Corpuscular Volume 84, Mean Corpuscular Hemoglobin 28, Mean Corpuscular Hemoglobin Concent 33, Red Cell Distribution Width 14.9, Platelet Count 318, Mean Platelet Volume 9.1, Neutrophils (%) (Auto) 88, Lymphocytes (%) (Auto) 6, Monocytes (%) (Auto) 7, Eosinophils (%) (Auto) 0, Basophils (%) (Auto) 0, Neutrophils # (Auto) 10.8, Lymphocytes # (Auto) 0.7, Monocytes # (Auto) 0.8, Eosinophils # (Auto) 0.0, Basophils # (Auto) 0.0, Neutrophils % (Manual) 88, Lymphocytes % (Manual) 4, Monocytes % (Manual) 2, Eosinophils % (Manual) 0, Basophils % (Manual) 0, Band Neutrophils 0, Reactive Lymphocytes 6, Blood Morphology Comment NORMAL, Sodium Level 134, Potassium Level 4.3, Chloride Level 99, Carbon Dioxide Level 24, Anion Gap 11, Blood Urea Nitrogen 18, Creatinine 0.99, Estimat Glomerular Filtration Rate > 60, BUN/Creatinine Ratio 18, Glucose Level 160, Calcium Level 8.9, Corrected Calcium 9.7, Magnesium Level 2.0, Total Bilirubin 0.4, Aspartate Amino Transf (AST/SGOT) 56, Alanine Aminotransferase (ALT/SGPT) 35, Alkaline Phosphatase 136, Total Protein 6.9, Albumin 3.0 Discharge Home Medications: Active Scripts Active Protonix (Pantoprazole Sodium) 20 Mg Tablet.dr 20 Mg PO DAILY Reported Clotrimazole-Betamethasone Crm (Clotrimazole/Betamethasone Dip) 15 Gm Cream..g. TOP HS Calcium 500 + D Tablet (Calcium Carbonate/Vitamin D3) 1 Each Tablet 1 Tab PO DAILY Vitamin B-12 (Cyanocobalamin (Vitamin B-12)) 1,000 Mcg Tablet 1,000 Mcg PO DAILY Tamsulosin HCl 0.4 Mg Cap.er.24h 0.4 Mg PO DAILY Diltiazem HCl 120 Mg Tablet 120 Mg PO BID Triamterene-Hctz 37.5-25 mg Cp (Triamterene/Hydrochlorothiazid) 1 Each Capsule 1 Cap PO DAILY Minocycline HCl 100 Mg Capsule 100 Mg PO DAILY Instructions to patient/family Please see electronic discharge instructions given to patient. TC ESPANA MD Sep 21, 2018 08:55
[2018-09-21] MEDS ORDERED: TRAM50TA2 PO (08:56)
--- NOTE | 2018-09-21 08:57 | Discharge Inst-Simple/Standard ---
Discharge Inst-Standard Discharge Medications New, Converted or Re-Newed RX: RX on Chart Patient Instructions/Follow Up Plan of Care/Instructions/FU: To use incentive spirometry at home. March shower. F/U on 10/02/18 Activity as Tolerated: Yes Discharge Diet: No Restrictions TC ESPANA MD Sep 21, 2018 08:57
[2018-09-22] MEDS ORDERED: NITR-65 PO (00:15)
[2018-09-22] MEDS ORDERED: ONDN4T PO (00:15)
== END 2018-09-21 11:33 | disposition home or self-care (01) | DRG 415 ==
LOC: SDC 09:01 → ICU 14:10 → SDC 09-20 10:20 → 4TH 09-20 10:20
PROVIDERS: ADMIT Surgery; ATTEND Surgery
PROC: 0FJ44ZZ Inspection of Gallbladder, Percutaneous Endoscopic Approach (ICD-10-PCS; 2018-09-19)
PROC: 8E0W4CZ Robotic Assisted Procedure of Trunk Region, Percutaneous Endoscopic Approach (ICD-10-PCS; 2018-09-19)
PROC: 0FT40ZZ Resection of Gallbladder, Open Approach (ICD-10-PCS; principal; 2018-09-19 10:07)
DX: K80.00 Calculus of gallbladder with acute cholecystitis without obstruction (principal); C79.9 Secondary malignant neoplasm of unspecified site; G47.30 Sleep apnea, unspecified; I10 Essential (primary) hypertension; K57.90 Diverticulosis of intestine, part unspecified, without perforation or abscess without bleeding; C61 Malignant neoplasm of prostate
CPT/HCPCS: 36415; 71045; 80053; 83735; 85007; 85027; 87081; 94664

== ENCOUNTER 2018-09-21 20:56 | Emergency (ER) | payer MEDICARE ==
[~2018-09-21] VITALS: Ht 175.3 cm; Wt 99.8 kg
[~2018-09-21 20:56] MED LIST changes: +TRAM50TA2 PO
--- OUTSIDE RECORDS SUMMARY | 2018-09-21 21:15 | XMS REPORT | Continuity of Care Document ---
Author Author [facility] Organization [facility] Address Unknown Phone Unavailable Allergies Active Description Code Type Severity Reaction Onset Reported/Identified Relationship to Patient Clinical Status Yes No Known Drug Allergies [id number] Drug Allergy Unknown N/A 11/13/2012 Medications There [...] EXAMINATION 09/01/2018 JEFRY DUFF DO Ot V72.81 [id number] CARDIOVASCULAR 09/01/2018 JEFRY DUFF DO Ot V72.84 [...] EXAMINATION 09/15/2018 JEFRY DUFF DO Ot V72.81 [id number] CARDIOVASCULAR 09/15/2018 JEFRY DUFF DO Ot V72.84 [...] R11.2 NAUSEA WITH VOMITING, UNSPECIFIED 09/15/2018 IRLANDA UMAÑA MD Ot R21 RASH AND OTHER NONSPECIFIC SKIN ERUPTION 09/15/2018 IRLANDA UMAÑA MD Ot R59.0 LOCALIZED ENLARGED LYMPH NODES 09/15/2018 IRLANDA UMAÑA MD Ot Z92.3 PERSONAL HISTORY OF IRRADIATION 09/15/2018 IRLANDA UMAÑA MD Ot C61 MALIGNANT NEOPLASM OF PROSTATE 09/15/2018 IRLANDA UMAÑA MD Ot E87.6 HYPOKALEMIA 09/15/2018 IRLANDA UMAÑA MD Ot I10 ESSENTIAL (PRIMARY) HYPERTENSION 09/15/2018 IRLANDA UMAÑA MD Ot I89.0 LYMPHEDEMA, NOT ELSEWHERE CLASSIFIED 09/15/2018 IRLANDA UMAÑA MD, Ot K57.30 DVRTCLOS OF LG INT W/O PERFORATION OR AB 09/15/2018 IRLANDA UMAÑA MD, Ot K80.20 CALCULUS OF GALLBLADDER W/O CHOLECYSTITI 09/15/2018 IRLANDA UMAÑA MD Ot N13.30 UNSPECIFIED HYDRONEPHROSIS 09/15/2018 IRLANDA UMAÑA MD Ot R11.2 NAUSEA WITH VOMITING, UNSPECIFIED 09/15/2018 IRLANDA UMAÑA MD Ot R21 RASH AND OTHER NONSPECIFIC [...] EXAMINATION 09/19/2018 JEFRY DUFF DO Ot V72.81 [id number] CARDIOVASCULAR 09/19/2018 DUFFJEFRY BATEMAN DO Ot V72.84 EXAM PRE-OPERATIVE NOS 09/19/2018 DUFFJEFRY BATEMAN DO Ot V74.8 SCREEN-BACTERIAL DIS NEC 09/19/2018 SANDRINE YOUSSEF, AUGUSTINA Colon Ot 185 MALIGN NEOPL PROSTATE 09/19/2018 SANDRINE YOUSSEF, AUGUSTINA Colon Ot 562.10 DIVERTICULOSIS COLON (W/O MENT OF HEMORR 09/19/2018 MATTEO YOUSSEF, DANIELA [place] Ot 185 MALIGN NEOPL PROSTATE 09/19/2018 GERMAN GARZON DO Ot 786.50 CHEST PAIN NOS 09/19/2018 GERMAN GARZON DO Ot I73.9 PERIPHERAL VASCULAR DISEASE, UNSPECIFIED 09/19/2018 GERMAN GARZON DO, Ot R06.00 DYSPNEA, UNSPECIFIED 09/19/2018 GERMAN GARZON DO, Ot I73.9 PERIPHERAL VASCULAR DISEASE, UNSPECIFIED 09/19/2018 GERMAN GARZON DO, Ot R06.00 DYSPNEA, UNSPECIFIED 09/19/2018 GERMAN GARZON DO, Ot R60.0 LOCALIZED EDEMA 09/19/2018 GERMAN GARZON DO, Ot I89.0 LYMPHEDEMA, NOT ELSEWHERE CLASSIFIED 09/19/2018 GERMAN GARZON DO Ot C61 MALIGNANT NEOPLASM OF PROSTATE 09/19/2018 GERMAN GARZON DO, Ot K57.30 DVRTCLOS OF LG INT W/O PERFORATION OR AB 09/19/2018 GERMAN GARZON DO, Ot N13.30 UNSPECIFIED HYDRONEPHROSIS 09/19/2018 GERMAN GARZON DO Ot R31.9 HEMATURIA, UNSPECIFIED 09/19/2018 GERMAN GARZON DO, Ot R59.0 LOCALIZED ENLARGED LYMPH NODES 09/19/2018 GERMAN GARZON DO, Ot R60.0 LOCALIZED EDEMA 09/19/2018 MALORIE YOUSSEF, TC [place] Ot Z01.818 ENCOUNTER FOR OTHER PREPROCEDURAL EXAMIN Procedures There is no data. Results Test [...] culture - 09/15/18 00:17 Bacterial blood culture NG NRG Blood lactic acid measurement (moles/volume) - 09/15/18 00:27 Blood lactic acid measurement (moles/volume) 1.51 mmol/L 0.50-2.00 Bacterial blood culture - 09/15/18 01:17 Bacterial blood culture NG [facility] Complete blood count (CBC) with automated [...] i.cardiac measurement (mass/volume) < ng/ mL <0.30 Methicillin resistant Staphylococcus aureus (MRSA) screening culture - 09:36 Methicillin resistant Staphylococcus aureus (MRSA) screening culture [facility] Complete blood count (CBC) with automated white blood cell (WBC) differential - 09/20/18 03:55 Blood leukocytes automated count (number/volume) 12.3 10*3/uL 4.3-11.0 Blood erythrocytes automated count (number/volume) 4.43 10*6/uL 4.35-5.85 Venous blood hemoglobin measurement (mass/volume) 12.2 g/dL 13.3-17.7 Blood hematocrit (volume fraction) 37 % 40-54 Automated erythrocyte mean corpuscular volume 84 [foz_us] 80-99 Automated erythrocyte mean corpuscular hemoglobin (mass per erythrocyte) 28 pg 25-34 Automated erythrocyte mean corpuscular hemoglobin concentration measurement ( mass/volume) 33 g/dL 32-36 Automated erythrocyte distribution width ratio 14.9 % 10.0-14.5 Automated blood platelet count (count/volume) 318 10*3/uL 130-400 Automated blood platelet mean volume measurement 9.1 [foz_us] 7.4-10.4 Automated blood neutrophils/100 leukocytes 88 % 42-75 Automated blood lymphocytes/100 leukocytes 6 % 12-44 Blood monocytes/100 leukocytes 7 % 0-12 Automated blood eosinophils/100 leukocytes 0 % 0-10 Automated blood basophils/100 leukocytes 0 % 0-10 Blood neutrophils automated count (number/volume) 10.8 10*3 1.8-7.8 Blood lymphocytes automated count (number/volume) 0.7 10*3 1.0-4.0 Blood monocytes automated count (number/volume) 0.8 10*3 0.0-1.0 Automated eosinophil count 0.0 10*3/uL 0.0-0.3 Automated blood basophil count (count/volume) 0.0 10*3/uL 0.0-0.1 Blood manual differential performed detection - 09/20/18 03:55 Blood monocytes/100 leukocytes 2 % NRG Manual blood segmented neutrophils/100 leukocytes 88 % NRG Blood band neutrophils/100 leukocytes 0 % NRG Manual blood lymphocytes/100 leukocytes 4 % NRG Manual eosinophils/100 leukocytes in nose 0 % NRG Manual blood basophils/100 leukocytes 0 % NRG Blood lymphocytes variant/100 leukocytes 6 % NRG Blood erythrocyte morphology finding identification NORMAL NRG Comprehensive metabolic panel - 09/20/18 03:55 Serum or plasma sodium measurement (moles/volume) 134 mmol/L 135-145 Serum or plasma potassium measurement (moles/volume) 4.3 mmol/L 3.6-5.0 Serum or plasma chloride measurement (moles/volume) 99 mmol/L 98-107 Carbon dioxide 24 mmol/L 21-32 Serum or plasma anion gap determination (moles/volume) 11 mmol/L 5-14 Serum or plasma urea nitrogen measurement (mass/volume) 18 mg/dL 7-18 Serum or plasma creatinine measurement (mass/volume) 0.99 mg/dL 0.60-1.30 Serum or plasma urea nitrogen/creatinine mass ratio 18 NRG Serum or plasma creatinine measurement with calculation of estimated glomerular filtration rate > NRG Serum or plasma glucose measurement (mass/volume) 160 mg/dL 70-105 Serum or plasma calcium measurement (mass/volume) 8.9 mg/dL 8.5-10.1 Serum or plasma total bilirubin measurement (mass/volume) 0.4 mg/dL 0.1-1.0 Serum or plasma alkaline phosphatase measurement (enzymatic activity/volume) 136 U/L 40-136 Serum or plasma aspartate aminotransferase measurement (enzymatic activity/ volume) 56 U/L 5-34 Serum or plasma alanine aminotransferase measurement (enzymatic activity/volume ) 35 U/L 0-55 Serum or plasma protein measurement (mass/volume) 6.9 g/dL 6.4-8.2 Serum or plasma albumin measurement (mass/volume) 3.0 g/dL 3.2-4.5 CALCIUM CORRECTED 9.7 mg/dL 8.5-10.1 Magnesium - 09/20/18 03:55 Magnesium 2.0 mg/dL 1.8-2.4 Encounters ACCT No. Visit Date/Time Discharge Status Pt. Type Provider Facility Loc./Unit Complaint [id number] 09/18/2018 10:38:00 09/18/2018 10:54:00 DIS Outpatient MALORIE YOUSSEF, TC [place] [facility] PREOP CHLELITHIASIS [id number] 09/14/2018 21:34:00 09/15/2018 18:00:00 DIS Inpatient CHASIDY YOUSSEF, IRLANDA [place] [facility] 4TH CHEST PAIN,N/V,METS PROSTATE CA [id number] 09/04/2018 12:01:00 09/04/2018 23:59:59 CLS Outpatient GERMAN GARZON DO [facility] RAD CA PROSTATE, HEMATURIA [id number] 11/12/2015 13:52:00 11/12/2015 23:59:59 CLS Outpatient GERMAN GARZON DO [facility] RAD LYMPHODEMA [id number] 10/16/2015 09:18:00 10/16/2015 23:59:59 CLS Outpatient GERMAN GARZON DO [facility] RAD EDEMA LEFT CALF AND FOOT [id number] 09/09/2015 09:16:00 09/09/2015 23:59:59 CLS Outpatient GERMAN GARZON DO [facility] RAD DYSPNEA,CLAUDICATION [id number] 09/05/2015 11:04:00 09/05/2015 23:59:59 CLS Outpatient GERMAN GARZON DO [facility] RAD DYSPNEA, CLAUDICATION , SYMPTOM [id number] 07/22/2015 14:20:00 07/22/2015 23:59:59 CLS Outpatient GERMAN GARZON DO [facility] CARD CHEST PAIN [id number] 03/10/2015 00:08:00 03/10/2015 23:59:59 CLS Preadmit DANIELA FELIPE MD [facility] ONC [id number] 12/09/2014 09:50:00 03/09/2015 00:01:00 DIS Outpatient DANIELA FELIPE MD [facility] ONC [id number] 10/23/2014 12:05:00 10/23/2014 23:59:59 CLS Outpatient AUGUSTINA DELUCA MD [facility] CARD PROSTATE CANCER [id number] 01/24/2014 06:15:00 01/24/2014 11:42:00 DIS Outpatient JEFRY DUFF DO [facility] SDC CYST ON BACK [id number] 01/23/2014 09:44:00 01/23/2014 23:59:59 CLS Outpatient JEFRY DUFF DO [facility] PREOP CYST ON BACK [id number] 06/12/2013 07:48:00 06/12/2013 09:55:00 DIS Outpatient JEANMARIE TAVARES MD [facility] SDC SCREENING [id number] 06/07/2013 07:15:00 06/07/2013 23:59:59 CLS Outpatient JEANMARIE TAVARES MD [facility] PREOP SCREENING [id number] 05/22/2013 08:14:00 05/22/2013 23:59:59 CLS Outpatient GERMAN GARZON DO [facility] RAD LT LOWER QUAD PAIN [id number] 05/21/2013 09:04:00 05/21/2013 23:59:59 CLS Outpatient MATTEO YOUSSEF, DANIELA [place] [facility] ONC [id number] 09/20/2018 10:20:00 ACT Inpatient MALORIE YOUSSEF, TC [place] [facility] 4TH CHOLELITHIASIS [id number] 01/17/2013 16:18:00 Document Registration [id number] 12/22/2012 08:48:00 Document Registration [id number] 11/24/2012 06:00:00 Document Registration [id number] 11/13/2012 15:29:00 Document Registration [id number] 09/12/2012 08:50:00 Document Registration [id number] 08/25/2012 11:16:00 Document Registration
[2018-09-21] MEDS ORDERED: KETOROLAC 30 MG/ML VIAL IVP STA (21:52)
[2018-09-21] MEDS ORDERED: LACTATED RINGERS 1,000 ML IV ONE (21:52)
[2018-09-21] MEDS ORDERED: ONDANSETRON 4 MG/2 ML (SDV) Z0FRAN IVP ONE (22:00)
--- NOTE | 2018-09-21 22:04 | ED Abdominal Pain ---
General Chief Complaint: General Problems/Pain Stated Complaint: POST GALL BLADDER SURGERY COMPLICATIONS Source of Information: Patient History of Present Illness Date Seen by Provider: Sep 21, 2018 Time Seen by Provider: 21:45 Initial Comments PT ARRIVES VIA POV FROM HOME C/O PAIN IN LLQ/LEFT GROIN AND LEFT FLANK SINCE AROUND 1500 PAIN IS CONSTANT, NOTHING WORSENS OR IMPROVES PAIN PT HAD CHOLECYSTECTOMY 2 DAYS AGO AND WAS RELEASED TODAY AROUND NOON HAD LAPAROSCOPIC CONVERTED TO OPEN PROCEDURE WITH DRAIN PLACEMENT--DRAIN WAS REMOVED THIS AM PT STATES HE HAD GANGRENE AND INFECTION IN HIS GALLBLADDER PT HAS NOT PICKED UP RX FOR PAIN MEDICATION PT TOOK 2 TYLENOL THIS AFTERNOON FOR PAIN STATES HE WASN'T HAVING MUCH PAIN OVER SURGICAL SITE. + NAUSEA AND DRY HEAVES HAD BEEN CONSTIPATED SINCE SURGERY BUT HAD A LAXATIVE AND A LARGE BM TODAY IN HOSPITAL NO URINARY SYMPTOMS AND VOIDING A NORMAL AMOUNT NO FEVER ADDITIONALLY, PT HAS HISTORY OF PROSTATE CANCER--WAS FIRST DX IN 2011, AND HAD 86 RADIATION SEED IMPLANTS AND "SHOTS" STATES IN LAST MONTH HE WAS DX WITH A RECURRENCE OF THE CANCER AND STATES HE IS SUPPOSED TO HAVE A STENT PLACED IN LEFT URETER BECAUSE HIS LEFT KIDNEY IS "SHUT OFF" SOMETIME THIS MONTH, BUT IS NOT SCHEDULED YET. HAS APPOINTMENT WITH DR. SHARMA 10/06/[address] SHARMA IN [place] FOR UROLOGY AND WAS JUST SET UP TODAY FOR NEW PT APPOINTMENT WITH ONCOLOGIST DR. GONZALEZ IN [place]--APPOINTMENT IS SCHEDULED FOR Tuesday09/25/[address] GONZALEZ. PCP: DR. GARZON SURGEON: DR. ESPANA Allergies and Home Medications Allergies Coded Allergies: No Known Drug Allergies (Unverified , 11/13/12) Home Medications Calcium Carbonate/Vitamin D3 1 Each Tablet, 1 TAB PO DAILY, (Reported) Clotrimazole/Betamethasone Dip 15 Gm Cream..g., TOP HS, (Reported) Cyanocobalamin (Vitamin B-12) 1,000 Mcg Tablet, 1,000 MCG PO DAILY, (Reported) Diltiazem HCl 120 Mg Tablet, 120 MG PO BID, (Reported) Minocycline HCl 100 Mg Capsule, 100 MG PO DAILY, (Reported) Nitrofurantoin Monohyd/M-Cryst 100 Mg Capsule, 100 MG PO BID Prescribed by: ETIENNE VO on 09/22/18 0015 Ondansetron HCl 4 Mg Tab, 4 MG PO Q4H Prescribed by: ETIENNE VO on 09/22/18 0015 Pantoprazole Sodium 20 Mg Tablet.dr, 20 MG PO DAILY Prescribed by: SUSY OLIVEIRA on 09/15/18 1442 Tamsulosin HCl 0.4 Mg Cap.er.24h, 0.4 MG PO DAILY, (Reported) Tramadol HCl 50 Mg Tablet, 50 MG PO Q12H PRN for PAIN-MILD TO MODERATE Prescribed by: TC ESPANA on 09/21/18 0856 Triamterene/Hydrochlorothiazid 1 Each Capsule, 1 CAP PO DAILY, (Reported) Patient Home Medication List Home Medication List Reviewed: Yes Review of Systems Review of Systems Constitutional: no symptoms reported Respiratory: No Symptoms Reported Cardiovascular: No Symptoms Reported Gastrointestinal: See HPI, Abdominal Pain, Constipated, Nausea, Other (DRY HEAVES) Genitourinary: See HPI Musculoskeletal: see HPI, back pain Skin: no symptoms reported Psychiatric/Neurological: No Symptoms Reported Endocrine: No Symptoms Reported Hematologic/Lymphatic: No Symptoms Reported Past Hctuvwx-Wrsjjp-Mncexh Hx Patient Social History Alcohol Use: Denies Use Recreational Drug Use: No Smoking Status: Former Smoker Type Used: Cigarettes Former Smoker, Quit: Sep 18, 1960 2nd Hand Smoke Exposure: No Recent Foreign Travel: No Contact w/Someone Who Travel: No Recent Hopitalizations: No Immunizations Up To Date Tetanus Booster (TDap): Unknown PED Vaccines UTD: Yes Date of Pneumonia Vaccine: Sep 07, 2016 Date of Influenza Vaccine: Aug 07, 2018 Seasonal Allergies Seasonal Allergies: No Past Medical History Surgeries: Yes (CARPAL TUNNEL, PROSTATE SEED IMPLANTS; LAPAROSCOPIC CONVERTED TO OPEN CHOLECYSTECTOMY 09/19/18) Abdominal, Gallbladder, Orthopedic Respiratory: Yes Sleep Apnea Currently Using CPAP: Yes Currently Using BIPAP: No Cardiac: Yes (Lymph edema, greater on the left) Hypertension Neurological: No Reproductive Disorders: No Sexually Transmitted Disease: No HIV/AIDS: No 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; PROSTATE CANCER) Prostate Problems Gastrointestinal: Yes (CHOLECYSTECTOMY 09/19/18) Diverticulosis, Gall Bladder Disease Musculoskeletal: No Endocrine: No HEENT: No Loss of Vision: Denies Hearing Impairment: Denies Cancer: Yes Prostate Did You Recieve Any Treatments: Yes (PROSTATE CANCER DX 2011-[place] WITH 86 RADIATION SEED IMPLANTS AND "SHOTS" . RECURRENCE DX 09/2018--PENDING TREATMENT OF 09/21/18) What Type of Treatment Did You: Radiation Psychosocial: No Integumentary: No Blood Disorders: No Adverse Reaction/Blood Tranf: No Family Medical History Diabetes mellitus 19 MOTHER Kidney disease G8 BROTHER PANCREATIC CANCER G8 SISTER Heart Disease, CAD Over 55 Years Old, Diabetes Physical Exam Vital Signs Vital Signs - First Documented 09/21/18 21:25 Temp 96.4 Pulse 92 Resp 22 B/P (MAP) 176/105 (128) Pulse Ox 96 Capillary Refill : Height/Weight/BMI Height: 6'0.00" Weight: 235lbs. 2.0oz. 106.212593lj; 30.4 BMI Method:Stated General Appearance: WD/WN, no apparent distress Neck: normal inspection Respiratory: normal breath sounds, no respiratory distress, no accessory muscle use Cardiovascular: regular rate, rhythm Peripheral Pulses: 0 Carotid (R), 0 Carotid (L), 0 Femoral (R), 0 Femoral (L), 0 Dorsalis Pedis (R), 0 Left Dors-Pedis (L), 0 Radial Pulses (R), 0 Radial Pulses (L) Gastrointestinal: normal bowel sounds, soft, no organomegaly, no pulsatile mass ; No distended, No guarding, No rebound; tenderness (LLQ, LEFT GROIN, LEFT FLANK ), other (SURGICAL INCISIONS/DRESSINGS ARE CLEAN/DRY/INTACT. NO DRAINAGE. NO SIGNS OF INFECTION) Extremities: normal range of motion, no calf tenderness, normal capillary refill, other (1+ EDEMA RIGHT LEG, 2+ EDEMA LEFT LEG, WITH LARGE LEFT INGUINAL NODE--NON-TENDER-- WITH OVERLYING ERYTHEMA. 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 experience specialist II-XII nml as tested, no motor/sensory deficits, alert, normal mood/affect, oriented x 3 Skin: normal color, warm/dry Progress/Results/Core Measures Results/Orders Lab Results Laboratory Tests Test 09/21/18 21:59 09/21/18 22:20 Range/Units Urine Color YELLOW Urine Clarity CLEAR Urine pH 8 5-9 Urine Specific [employer] 1.015 L 1.016-1.022 Urine Protein 2+ H NEGATIVE Urine Glucose (UA) NEGATIVE NEGATIVE Urine Ketones NEGATIVE NEGATIVE Urine Nitrite NEGATIVE NEGATIVE Urine Bilirubin NEGATIVE NEGATIVE Urine Urobilinogen NORMAL NORMAL MG/DL Urine Leukocyte Esterase 1+ H NEGATIVE Urine RBC (Auto) 5+ H NEGATIVE Urine RBC >100 H /HPF Urine WBC 25-50 H /HPF Urine Crystals NONE /LPF Urine Bacteria FEW H /HPF Urine Casts NONE /LPF Urine Mucus NEGATIVE /LPF Urine Culture Indicated YES White Blood Count 12.7 H 4.3-11.0 10^3/uL Red Blood Count 4.63 4.35-5.85 10^6/uL Hemoglobin 12.5 L 13.3-17.7 G/DL Hematocrit 39 L 40-54 % Mean Corpuscular Volume 84 80-99 FL Mean Corpuscular Hemoglobin 27 25-34 PG Mean Corpuscular Hemoglobin Concent 32 32-36 G/DL Red Cell Distribution Width 14.6 H 10.0-14.5 % Platelet Count 366 130-400 10^3/uL Mean Platelet Volume 9.1 7.4-10.4 FL Neutrophils (%) (Auto) 85 H 42-75 % Lymphocytes (%) (Auto) 5 L 12-44 % Monocytes (%) (Auto) 11 0-12 % Eosinophils (%) (Auto) 0 0-10 % Basophils (%) (Auto) 0 0-10 % Neutrophils # (Auto) 10.7 H 1.8-7.8 X 10^3 Lymphocytes # (Auto) 0.6 L 1.0-4.0 X 10^3 Monocytes # (Auto) 1.3 H 0.0-1.0 X 10^3 Eosinophils # (Auto) 0.0 0.0-0.3 10^3/uL Basophils # (Auto) 0.0 0.0-0.1 10^3/uL Sodium Level 136 135-145 MMOL/L Potassium Level 3.6 3.6-5.0 MMOL/L Chloride Level 98 98-107 MMOL/L Carbon Dioxide Level 26 21-32 MMOL/L Anion Gap 12 5-14 MMOL/L Blood Urea Nitrogen 20 H 7-18 MG/DL Creatinine 1.14 0.60-1.30 MG/DL Estimat Glomerular Filtration Rate > 60 BUN/Creatinine Ratio 18 Glucose Level 163 H 70-105 MG/DL Calcium Level 9.1 8.5-10.1 MG/DL Corrected Calcium 9.7 8.5-10.1 MG/DL Total Bilirubin 0.4 0.1-1.0 MG/DL Aspartate Amino Transf (AST/SGOT) 38 H 5-34 U/L Alanine Aminotransferase (ALT/SGPT) 26 0-55 U/L Alkaline Phosphatase 124 40-136 U/L Total Protein 7.3 6.4-8.2 GM/DL Albumin 3.3 3.2-4.5 GM/DL Amylase Level 27 25-125 U/L Lipase 27 8-78 U/L My Orders Orders - TAVOSAJANA K DO Saline Lock/Iv-Start (09/21/18:52) Monitor-Rhythm Ecg Trace Only (09/21/18:52) Ct Abd/Pelvis Wo(Kidney Stone) (09/21/18:52) Amylase (09/21/18:52) Cbc With Automated Diff (09/21/18:) Comprehensive Metabolic Panel (09/21/18:) Lipase (09/21/18:52) Ua Culture If Indicated (09/21/18:) Abdomen, Flat & Upright/Decub (09/21/18:52) Saline Lock/Iv-Start (09/21/18:52) Lactated Ringers (Lr 1000 Ml Iv Solution (09/21/18 21:52) Ondansetron Injection (Zofran Injectio (09/21/18 22:00) Ketorolac Injection (Toradol Injection) (09/21/18:52) Urine Culture (09/21/18 21:59) Ceftriaxone For Iv Use (Rocephin For I (09/21/18 23:30) Fentanyl Injection (Sublimaze Injection (09/21/18 23:44) Rx-Tramadol Hcl (Rx-Ultram) (09/22/18 00:10) Rx-Ondansetron Po (Rx-Zofran Po) (09/22/18 00:10) Medications Given in ED Current Medications Medications Dose Ordered Sig/Kathie Route Start Time Stop Time Status Last Admin Dose Admin Ceftriaxone Sodium 1000 mg/ Sodium Chloride 50 ml @ 100 mls/hr ONCE ONCE IV 09/21/18 23:30 09/21/18 23:59 DC 09/22/18 00:40 100 MLS/HR Lactated Ringer's 1,000 ml @ 0 mls/hr Q0M ONCE IV 09/21/18 21:52 09/21/18 21:55 DC 09/21/18 22:20 1,000 MLS/HR Ondansetron HCl 4 mg ONCE ONCE IVP 09/21/18 22:00 09/21/18 22:01 DC 09/21/18 22:20 4 MG Vital Signs/I&O 09/21/18 09/22/18 21:25 01:26 Temp 96.4 97.2 Pulse 92 81 Resp 22 18 B/P (MAP) 176/105 (128) 154/96 (115) Pulse Ox 96 98 Progress Progress Note : Progress Note UNEVENTFUL ER STAY PAIN AND NAUSEA GONE AT DISMISSAL Diagnostic Imaging Comments ABDOMEN XRAYS--NON SPECIFIC BOWEL GAS PATTERN, PENDING RADIOLOGIST REVIEW CT ABDOMEN/PELVIS--POST OPERATIVE CHANGES IN GALLBLADDER FOSSA, WITH MODERATE INFLAMMATION AND SMALL AMOUNT OF FLUID IN SMALL SPICULES OF AIR IN RUQ AND RIGHT ANTERIOR/LATERAL ABDOMINAL WALL--C/W POST OP STATUS. SEVERE LEFT HYDROURETERONEPHROSIS TO URINARY BLADDER. NO OBSTRUCTING STONE IS NOTED, MAY BE AN OBSTRUCTIVE LESION IN LEFT URETERAL ORIFICE, WITH PERINEPHRIC STRANDING. FINDINGS ARE SIGNIFICANTLY WORSENED SINCE CT ON 09/03/18. ENLARGED AND PATHOLOGIC APPEARING LYMPH NODES IN LEFT INGUINAL REGION, WITH CELLULITIS OR EDEMA OF LEFT UPPER THIGH. THESE WERE ALSO PRESENT ON PREVIOUS STUDY. MILD STRANDY NON-SPECIFIC INFILTRATES IN LUNG BASES. MAY BE RELATED TO ATELECTASIS AND POOR INSPIRATORY EFFORT, OR MILD VOLUME OVERLOAD OR PNEUMONITIS PER [facility] VIA FAX @[phone] Reviewed: Reviewed by Me Departure Communication (Admissions) [id number]--CALLED MARK DIRECT CALL. MESSAGE LEFT 0000--MARK CALLED BACK, PAGING DR. LINDA, UROLOGIST FIRE TECHNICIAN 0002--SPOKE WITH DR. LINDA--HE ADVISES TO CALL OFFICE IN AM, AND PT IS TO BE SEEN NEXT WEEK, INSTEAD OF SCHEDULED VISIT ON 10/06/18. Impression Primary Impression: Obstruction of left ureter Additional Impressions: UTI (urinary tract infection) S/P cholecystectomy Recurrent prostate cancer Disposition: HOME, SELF-CARE Condition: Improved Departure-Patient Inst. Referrals: GERMAN GARZON DO (PCP/Family) Primary Care Physician Patient Instructions: Hydronephrosis, Adult (DC), Prostate Cancer (DC), Urinary Tract Infection, Adult (DC) Add. Discharge Instructions: LOTS OF CLEAR LIQUIDS--NO COFFEE, POP OR TEA TAKE YOUR REGULAR MEDICATIONS PRESCRIBED GET YOUR PRESCRIPTION FOR PAIN MEDICATION FILLED IN THE MORNING AND TAKE NEEDED FOR PAIN FOLLOW UP WITH DR. SHARMA--CALL IN AM FOR SOONER APPOINTMENT THAN OCTOBER 06 KEEP YOUR APPOINTMENT WITH DR. GONZALEZ ON TUESDAY All discharge instructions reviewed with patient and/or family. Voiced understanding. Scripts Nitrofurantoin Monohyd/M-Cryst (Macrobid 100 mg Capsule) 100 Mg Capsule 100 MG PO BID, #20 CAP Prov: ETIENNE VO DO 09/22/18 Ondansetron HCl (Zofran) 4 Mg Tab 4 MG PO Q4H for Nausea/Vomiting, #10 TAB Prov: ETIENNE VO DO 09/22/18 ETIENNE VO DO Sep 21, 2018 22:04
[2018-09-21 22:08] LABS: BILIRUBIN,URINE NEGATIVE (NEGATIVE); CLARITY,URINE CLEAR; COLOR,URINE YELLOW; GLUCOSE, URINE (UA) NEGATIVE (NEGATIVE); KETONES,URINE NEGATIVE (NEGATIVE); LEUKOCYTE ESTERASE ,URINE 1+ (NEGATIVE); NITRITE,URINE NEGATIVE (NEGATIVE); PH,URINE 8 (5-9); PROTEIN,URINE 2+ (NEGATIVE); UROBILINOGEN,URINE NORMAL (NORMAL)
[2018-09-21 22:23] LABS: BACTERIA,URINE FEW /HPF; RBC,URINE >100 /HPF; WBC,URINE 25-50 /HPF
[2018-09-21 22:28] LABS: BASOPHILS % (AUTO) 0 % (0-10); EOSINOPHILS % (AUTO) 0 % (0-10); HEMATOCRIT 39 % (40-54); HEMOGLOBIN 12.5 G/DL (13.3-17.7); LYMPHOCYTES # (AUTO) 0.6 X 10^3 (1.0-4.0); LYMPHOCYTES % (AUTO) 5 % (12-44); MEAN CORPUSCULAR HEMOGLOBIN 27 PG (25-34); MEAN CORPUSCULAR HGB CONC 32 G/DL (32-36); MEAN CORPUSCULAR VOLUME 84 FL (80-99); MEAN PLATELET VOLUME 9.1 FL (7.4-10.4); MONOCYTES # (AUTO) 1.3 X 10^3 (0.0-1.0); MONOCYTES % (AUTO) 11 % (0-12); NEUTROPHILS # (AUTO) 10.7 X 10^3 (1.8-7.8); NEUTROPHILS % (AUTO) 85 % (42-75); PLATELET COUNT 366 10^3/uL (130-400); RED BLOOD COUNT 4.63 10^6/uL (4.35-5.85); RED CELL DISTRIBUTION WIDTH 14.6 % (10.0-14.5); WHITE BLOOD COUNT 12.7 10^3/uL (4.3-11.0)
[2018-09-21 22:48] LABS: ALANINE AMINOTRANSFERASE 26 U/L (0-55); ALBUMIN 3.3 GM/DL (3.2-4.5); ALKALINE PHOSPHATASE 124 U/L (40-136); AMYLASE 27 U/L (25-125); BILIRUBIN,TOTAL 0.4 MG/DL (0.1-1.0); BUN/CREATININE RATIO 18; CALCIUM 9.1 MG/DL (8.5-10.1); CARBON DIOXIDE 26 MMOL/L (21-32); CHLORIDE 98 MMOL/L (98-107); CREATININE SERUM 1.14 MG/DL (0.60-1.30); GFR ESTIMATED > 60; GLUCOSE 163 MG/DL (70-105); LIPASE 27 U/L (8-78); POTASSIUM 3.6 MMOL/L (3.6-5.0); SODIUM 136 MMOL/L (135-145); TOTAL PROTEIN 7.3 GM/DL (6.4-8.2)
[2018-09-21] MEDS ORDERED: cefTRIAXone FOR IV USE 1,000 MG in NS (IVPB) 50 ML IV ONE (23:30)
[2018-09-21] MEDS ORDERED: fentaNYL INJECTION 100 MCG/2 ML AMP IVP STA (23:44)
[2018-09-22] MEDS ORDERED: RX-ONDANSETRON 4 MG ODT (ZOFRAN) PPK #4 PO STA (00:10)
[2018-09-22] MEDS ORDERED: RX-TRAMADOL 50 MG (ULTRAM) TAB PPK#4 PO STA (00:10)
[2018-09-22] MEDS ORDERED: NITR-65 PO (00:15)
[2018-09-22] MEDS ORDERED: ONDN4T PO (00:15)
[2018-09-22 01:26] VITALS: BP 154/96
--- NOTE | 2018-09-22 06:35 | Diagnostic Imaging Report ---
Abdomen supine erect at 1050 hours. INDICATION: Abdominal pain. FINDINGS: There is gas in both large and small bowel in a nonspecific fashion. There is no evidence for bowel obstruction. There is no mass or organomegaly identified but there is a paucity of bowel gas in the left midabdomen. This may be related to the obstruction of left kidney seen on the CT abdomen/pelvis exam performed prior to the study. There are no pathological calcifications evident. Radiopaque seed implants are again seen overlying the prostate gland. There is severe degenerative disc and bony disease involving the lower lumbar spine. IMPRESSION: 1. The bowel gas pattern is nonspecific. There is no acute abnormality identified. 2. The absence of bowel gas in the left midabdomen may be related to the obstruction of left kidney. Dictated by: Dictated on workstation # [id number]
--- NOTE | 2018-09-22 07:03 | Diagnostic Imaging Report ---
PROCEDURE: CT urinary tract, rule out kidney stone. TECHNIQUE: Multiple contiguous axial images were obtained through the abdomen and pelvis without the use of intravenous contrast. INDICATION: Left lower quadrant pain, cholecystectomy 3 days ago. The previous exam of 09/14/2018 did note that the gallbladder was mildly distended. In the interval since the prior exam the patient has undergone a cholecystectomy. There is perhaps a small amount of fluid in the gallbladder fossa as well as a few droplets of gas. There is no mass or abscess identified, however. There is no significant paracolic fluid collection to suggest a bile leak either. There has been an increase in the size of the small nodes in the root of mesentery in the interval since the prior exam and there is also some distortion of the mesenteric fat in this area indicating edema/inflammation. The previous exam also identified dilatation of the left renal pelvis and left ureter. On this exam, there is greater distention of both the renal pelvis and the left ureter when compared to the prior study. There is still no evidence for an obstructive calculus, however. The bladder is not well-distended and consequently difficult to assess. The bladder wall does seem thickened. Whether this is secondary to cystitis or to incomplete distention is not certain. The left inguinal and left iliac chain adenopathy noted on the prior study is again evident and no different. There is also edema/inflammation of the subcutaneous fat of the left thigh. There is no acute abnormality of the abdomen or pelvis noted otherwise. In the interval since the previous study, however, mild bibasilar atelectasis/infiltrate has developed. The bone windows show no sign of a fracture or of a destructive lesion. IMPRESSION: 1. In the interval since the prior exam the patient has undergone a cholecystectomy. There are postoperative changes involving the right upper quadrant but there is no mass or abscess identified. There is no sign of a bile leak either. If there is clinical concern regarding a bile leak, then nuclear medicine hepatobiliary scan would be recommended. 2. There does appear to be greater distention of the left collecting system than noted on the prior exam. There is now coarse perinephric stranding about the left kidney as well. 3. The left iliac chain and inguinal adenopathy noted previously is again evident and no different. There is also persistent edema of the subcutaneous fat of the left thigh. 4. Mild bibasilar atelectasis/infiltrate has developed. Dictated by: Dictated on workstation # [id number]
== END 2018-09-22 01:35 | disposition home or self-care (01) ==
LOC: EDUNIT# 20:56 → ER 20:57
DX: T81.40XA Infection following a procedure, unspecified, initial encounter (principal); N13.6 Pyonephrosis; N39.0 Urinary tract infection, site not specified; G47.30 Sleep apnea, unspecified; I10 Essential (primary) hypertension; Z80.0 Family history of malignant neoplasm of digestive organs; Z82.49 Family history of ischemic heart disease and other diseases of the circulatory system; Z87.19 Personal history of other diseases of the digestive system; Z90.49 Acquired absence of other specified parts of digestive tract; Z98.890 Other specified postprocedural states; Z87.891 Personal history of nicotine dependence; Z85.46 Personal history of malignant neoplasm of prostate; Z92.21 Personal history of antineoplastic chemotherapy; Z96.0 Presence of urogenital implants
CPT/HCPCS: 36415; 74019; 74176; 80053; 81000; 82150; 83690; 85025; 87088; 93041

== ENCOUNTER 2018-11-09 06:23 | Outpatient (CLI) | payer MEDICARE ==
[~2018-11-09] VITALS: Ht 182.9 cm; Wt 99.8 kg
[~2018-11-09 06:23] MED LIST changes: +NITR-65 PO; +ONDN4T PO
== END 2018-11-09 10:43 | disposition home or self-care (01) ==
LOC: PREOP 06:23
PROVIDERS: ATTEND Internal Medicine
DX: Z01.818 Encounter for other preprocedural examination (principal)

== ENCOUNTER 2018-11-14 06:48 | Day surgery (SDC) | payer MEDICARE ==
--- NOTE | 2018-11-08 17:21 | HISTORY AND PHYSICAL ---
DATE OF SERVICE: PANENDOSCOPY HISTORY AND PHYSICAL HISTORY OF PRESENT ILLNESS: The patient is a 78-year-old white male, referred by Dr. Maier and Dr. Morris, for panendoscopy. The patient is a 78-year-old white male who had not felt well since sometime in the middle of the summer noting some weight loss and declining energy level. A little over a month ago, he noted left inguinal adenopathy that was biopsied revealing metastatic carcinoma. He had a history of prostate cancer and underwent PET scanning revealing bilateral inguinal adenopathy as well as periaortic adenopathy that was PET positive several weeks ago. I assume, he is being worked up for adenocarcinoma of unknown primary, which prostate is possibility. He apparently had repeat PSA that was elevated at 10 after previous unmeasurable levels. The patient has noted some occasional bright red blood per rectum. He denies dysphagia or odynophagia and reports about at least a 10-pound weight loss over the past six months. He has not noted any bowel habit change. He does report diminishment in appetite. He has had no night sweats, chills or fever. PAST MEDICAL HISTORY: Significant for initial diagnosis of prostate cancer in 2012 for which he underwent brachytherapy. He at some point stopped antiandrogen therapy due to side effects. He had a PSA done in 04/2018 that was 3.98, repeated PSA in September was up to 17, and he just recently resumed antiandrogen therapy. His PET scan was done on 10/24/2018 and I do not have the immunohistochemical studies done from his biopsy, but have the initial path report indicative of metastatic carcinoma, although it did not state whether it is specifically adenocarcinoma. A PET scan also revealed findings compatible with adrenal metastasis. PAST SURGICAL HISTORY: Total knee replacement in 2004 and cholecystectomy in 2018. FAMILY HISTORY: He has one daughter with a history of breast cancer. He is not aware of any other family history for malignancy and he is not aware of any GI tract cancers run in the family. SOCIAL HISTORY: The patient is . He has one son and one daughter. 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 REVIEW OF SYSTEMS: CONSTITUTIONAL: Denies night sweats, chills or fever. HEMATOLOGIC: He has noted enlarged bilateral inguinal nodes with left lower extremity swelling that has not been significantly improved by recent radiation therapy to the left groin done to try to combat lymphedema. Cardiac: He denies any chest pain. He has had some mild dyspnea on exertion but has had no orthopnea or PND. He has stable 2 to 3+ left pedal edema. No edema on the right. PULMONARY: He denies any problems with cough or chest congestion. PAST SURGICAL HISTORY: He has had some intermittent small volume bright red blood per rectum that is painless. He has had no abdominal pain, change in bowel habit or reported melena. PHYSICAL EXAMINATION: GENERAL: An elderly white male who did not appear to be in acute distress. VITAL SIGNS: His blood pressure was 120/74 with a heart rate of 78 and regular. Weight at 220.4 pounds and is down 11 pounds from his last office weight when I performed a colonoscopy on him in 05/2013, at which time he did have three tubular adenomas removed, one from the proximal ascending colon, one from the mid ascending colon, and one from the mid sigmoid colon, all were diminutive. HEENT: Reveals mild conjunctival pallor. No evidence for scleral icterus is noted. Unremarkable. There is a Mallampati class 1 oropharyngeal configuration with no evidence for erythema. NECK: Revealed no JVD, adenopathy or bruits. No axillary adenopathy was noted. CHEST: Clear to auscultation. CARDIOVASCULAR: Reveals a regular rate and rhythm without murmur, S3 or S4. ABDOMEN: Soft, supple. There is a 2 cm hard nodule around the trocar site. The patient said it was months larger and present ever since cholecystectomy and felt to be fibrous old organized hematoma. No other mass, organomegaly was noted. He does have bilateral pathologic, fixed hard inguinal adenopathy. EXTREMITIES: There is 2+ edema to the upper tibia on the left, none on the right. No cyanosis or clubbing is present. 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 The patient is being set up for panendoscopy for further investigation. Prep instructions were discussed with the patient. With review of his medical record, evaluation and discussion over 45 minutes of my care time was spent with another 15 minutes of staff time. The patient is set up for panendoscopy on 11/14. Prep instructions were given and questions were answered. Job ID: [id number] DocumentID: [id number] Dictated Date: 11/08/2018 16:04:12 Adventure Guide Date: 11/08/2018 17:20:40 Dictated By: JEANMARIE TAVARES MD MTDD
[~2018-11-14] VITALS: Ht 182.9 cm; Wt 99.8 kg
[2018-11-14] MEDS ORDERED: D5 LR IV SOLUTION 1,000 ML IV STA (07:04)
[2018-11-14] MEDS ORDERED: D5 LR IV SOLUTION 1,000 ML IV ONE (07:07)
[2018-11-14] MEDS ORDERED: fentaNYL INJECTION 100 MCG/2 ML AMP IVP ONE (07:15)
[2018-11-14] MEDS ORDERED: MIDAZOLAM 2 MG/2 ML (VERSED) VIAL IVP ONE (07:15)
[2018-11-14] MEDS ORDERED: LIDOCAINE JELLY 2% 6 ML SYRINGE MM PRN (07:15)
[2018-11-14] MEDS ORDERED: HURRICAINE EXT TUBE (BENZOCAINE) XX PRN (07:15)
[2018-11-14 07:24] VITALS: BP 139/84
[2018-11-14] MEDS ORDERED: LIDOCAINE JELLY 2% 6 ML SYRINGE ONE (07:29)
[2018-11-14] MEDS ORDERED: HURRICAINE EXT TUBE (BENZOCAINE) ONE (07:29)
[2018-11-14] MEDS ORDERED: fentaNYL INJECTION 100 MCG/2 ML AMP ONE ×2 (07:29)
[2018-11-14] MEDS ORDERED: MIDAZOLAM 2 MG/2 ML (VERSED) VIAL ONE ×3 (07:29)
[2018-11-14 08:20] VITALS: BP 117/62
--- NOTE | 2018-11-14 08:21 | Pre-Op Note & Conscious Sedat ---
Pre-Operative Progress Note H&P Reviewed The H&P was reviewed, patient examined and no changes noted. Date H&P Reviewed: Nov 14, 2018 Time H&P Reviewed: 07:15 Conscious Sedation Pre-Proced ASA Score 2 For ASA 3 and 4: Consider anesthesia and medical clearance. Also, for patients with a history of failed moderate sedation consider anesthesia. Airway Lungs Heart ASA score ASA 1: a normal healthy patient ASA 2: a patient with a mild systemic disease (mid diabetes, controlled hypertension, obesity ASA 3: a patient with a severe systemic disease that limits activity (angina , COPD, prior Myocardial infarction) ASA 4: a patient with an incapacitating disease that is a constant threat to life (CHF, renal failure) ASA 5: a moribund patient not expected to survive 24 hrs. (ruptured aneurysm) ASA 6: a declared brain patient whose organs are being harvested. For emergent operations, add the letter E after the classification Mallampati Classification Grade 2 Sedation Plan Analgesia, Amnesia, Plan communicated to team members, Discussed options with patient/fam, Discussed risks with patient/fam The patient is an appropriate candidate to undergo the planned procedure, sedation, and anesthesia. The patient immediately re-assessed prior to indication. JEANMARIE TAVARES MD Nov 14, 2018 08:21
[2018-11-14 08:30] VITALS: BP 116/72
[2018-11-14 08:50] VITALS: BP 126/74
[2018-11-14 09:00] VITALS: BP 126/74
--- NOTE | 2018-11-14 13:30 | OPERATIVE REPORT ---
DATE OF SERVICE: 11/14/2018 PANENDOSCOPY SUMMARY INDICATION FOR THE PROCEDURE: Adenocarcinoma of unknown primary, evaluate for GI tract source. The patient was placed in the left lateral decubitus position. Prior to undergoing colonoscopy, digital rectal evaluation was performed. Anal sphincter tone was normal and the perianal reflexes are intact. The prostate is flat and atrophied. No nodularity is noted. Digital rectal evaluation of the anal canal and distal rectal vault was otherwise unremarkable. The colonoscope was then inserted into the rectum under direct visualization and advanced to the cecum. The cecum was identified by identification of the ileocecal valve and cecal strap. Photographic identification was obtained. Careful inspection was made as colonoscope was withdrawn. Quality of prep was good. FINDINGS: There is no evidence for internal or external hemorrhoids. The rectum was unremarkable. A moderate number of small to medium size sigmoid diverticulum were present noted in the mid and proximal portion of the sigmoid colon, which was otherwise unremarkable. The descending colon, splenic flexure, transverse colon, hepatic flexure, ascending colon and cecum were unremarkable. No evidence for neoplasia was identified. ASSESSMENT: Mild diverticular disease confined to the mid and proximal sigmoid colon was present without evidence for diverticulitis. There is no evidence for neoplasia on today's colonoscopy. Digital evaluation of the prostate revealed an atrophic gland, previous radiation therapy with no other digital evidence for prostate recurrence. We then proceeded with EGD evaluation. The endoscope was inserted in the oral cavity and under direct visualization, esophagus was intubated. The endoscope was passed down the esophagus, stomach and second portion of the duodenum. Careful inspection was made as the endoscope was withdrawn. The patient tolerated the procedure well. FINDINGS: The posterior hypopharynx, arytenoid aperture, true and false vocal folds were unremarkable. No evidence for erythema was noted. The proximal, mid and distal esophagus were unremarkable, say for a small amount of erythema noted at the Z-line. There is a moderate size hiatal hernia present without evidence for erosive esophagitis or neoplasia. The cardia, fundus and antrum of the stomach were unremarkable. There is a small prepyloric erosion with normal peristaltic activity and no evidence for induration or ulceration. No evidence for blood in the upper GI tract was noted. The pylorus and the pyloric channel was unremarkable. Minimal amount of duodenitis was present confined to a small duodenal bulb. The second portion of duodenum was unremarkable. ASSESSMENT: No evidence for malignancy was noted on today's upper endoscopy or colonoscopy. A moderate sized hiatal hernia is present without evidence for erosive esophagitis. I thank you for the referral of this pleasant gentleman. 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
== END 2018-11-14 09:10 | disposition home or self-care (01) ==
LOC: ENDO 06:48
PROVIDERS: ATTEND Internal Medicine
DX: K57.30 Diverticulosis of large intestine without perforation or abscess without bleeding (principal); K29.80 Duodenitis without bleeding; K21.9 Gastro-esophageal reflux disease without esophagitis; K44.9 Diaphragmatic hernia without obstruction or gangrene; C77.4 Secondary and unspecified malignant neoplasm of inguinal and lower limb lymph nodes; R63.4 Abnormal weight loss; Z86.010 Personal history of colon polyps; Z85.46 Personal history of malignant neoplasm of prostate; Z87.891 Personal history of nicotine dependence

== ENCOUNTER 2018-12-07 05:39 | Outpatient (CLI) | payer MEDICARE ==
[~2018-12-07] VITALS: Ht 182.9 cm; Wt 99.8 kg
== END 2018-12-07 14:25 | disposition home or self-care (01) ==
LOC: PREOP 05:39
PROVIDERS: ATTEND Surgery
DX: Z01.818 Encounter for other preprocedural examination (principal)

== ENCOUNTER 2018-12-11 10:47 | Day surgery (SDC) | payer MEDICARE ==
[~2018-12-11] VITALS: Ht 182.9 cm; Wt 97.7 kg
--- OUTSIDE RECORDS SUMMARY | 2018-12-11 10:51 | XMS REPORT | Continuity of Care Document ---
Author Author [facility] Organization [facility] Address Unknown Phone Unavailable Allergies Active Description Code Type Severity Reaction Onset Reported/Identified Relationship to Patient Clinical Status Yes No Known Drug Allergies [id number] Drug Allergy Unknown N/A 11/13/2012 Medications There [...] EXAMINATION 09/01/2018 JEFRY DUFF DO Ot V72.81 [id number] CARDIOVASCULAR 09/01/2018 JEFRY DUFF DO Ot V72.84 [...] EXAMINATION 09/15/2018 JEFRY DUFF DO Ot V72.81 [id number] CARDIOVASCULAR 09/15/2018 JEFRY DUFF DO Ot V72.84 [...] MD Ot Z92.3 PERSONAL HISTORY OF IRRADIATION 09/18/2018 MALORIE YOUSSEF, TC [place] Ot Z01.818 ENCOUNTER FOR OTHER PREPROCEDURAL EXAMIN 09/19/2018 MATTEO YOUSSEF, DANIELA Penn Ot 185 [...] EXAMINATION 09/19/2018 JEFRY DUFF DO Ot V72.81 [id number] CARDIOVASCULAR 09/19/2018 JEFRY DUFF DO Ot V72.84 EXAM PRE-OPERATIVE NOS 09/19/2018 DUFFJEFRY BATEMAN DO Ot V74.8 SCREEN-BACTERIAL DIS NEC 09/19/2018 SANDRINE YOUSSEF, AUGUSTINA Colon Ot 185 MALIGN NEOPL PROSTATE 09/19/2018 SANDRINE YOUSSEF, AUUGSTINA Colon Ot 562.10 DIVERTICULOSIS COLON (W/O MENT OF HEMORR 09/19/2018 MATTEO YOUSSEF, DANIELA Penn Ot 185 MALIGN NEOPL PROSTATE 09/19/2018 GERMAN GARZON DO Ot 786.50 CHEST PAIN NOS 09/19/2018 GERMAN GARZON DO, Ot I73.9 PERIPHERAL [...] Ot Z01.818 ENCOUNTER FOR OTHER PREPROCEDURAL EXAMIN 09/21/2018 MALORIE YOUSSEF, TC [place] Ot C61 MALIGNANT NEOPLASM OF PROSTATE 09/21/2018 MALORIE YOUSSEF, TC [place] Ot 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 09/21/2018 MALORIE YOUSSEF, TC [place] Ot G47.30 SLEEP APNEA, UNSPECIFIED 09/21/2018 MALORIE YOUSSEF, TC [place] Ot I10 ESSENTIAL (PRIMARY) HYPERTENSION 09/21/2018 MALORIE YOUSSEF, TC [place] Ot K57.90 DVRTCLOS OF INTEST, PART UNSP, W/O PERF 09/21/2018 MALORIE YOUSSEF, TC [place] Ot K80.00 CALCULUS OF GALLBLADDER W ACUTE CHOLECYS 09/21/2018 MATTEO YOUSSEF, DANIELA Penn Ot 185 MALIGN NEOPL PROSTATE 09/21/2018 GERMAN GARZON DO Ot 562.10 DIVERTICULOSIS COLON (W/O MENT OF HEMORR 09/21/2018 GERMAN GARZON DO Ot 571.8 CHRONIC LIVER DIS NEC 09/21/2018 ANUSHA YOUSSEF, JEANMARIE Hatch Ot V72.84 EXAM PRE-OPERATIVE NOS 09/21/2018 JEFRY DUFF DO Ot 706.2 SEBACEOUS CYST 09/21/2018 JEFRY DUFF DO Ot V72.63 PRE-PROCEDURAL LABORATORY EXAMINATION 09/21/2018 JEFRY DUFF DO Ot V72.81 [id number] CARDIOVASCULAR 09/21/2018 JEFRY DUFF DO Ot V72.84 EXAM PRE-OPERATIVE NOS 09/21/2018 JEFRY DUFF DO Ot V74.8 SCREEN-BACTERIAL DIS NEC 09/21/2018 AUGUSTINA DELUCA MD Ot 185 MALIGN NEOPL PROSTATE 09/21/2018 AUGUSTINA DELUCA MD Ot 562.10 DIVERTICULOSIS COLON (W/O MENT OF HEMORR 09/21/2018 MATTEO YOUSSEF, DANIELA Penn Ot 185 MALIGN NEOPL PROSTATE 09/21/2018 GERMAN GARZON DO Ot 786.50 CHEST PAIN NOS 09/21/2018 GERMAN GARZON DO Ot I73.9 PERIPHERAL VASCULAR DISEASE, UNSPECIFIED 09/21/2018 GERMAN GARZON DO Ot R06.00 DYSPNEA, UNSPECIFIED 09/21/2018 GERMAN GARZON DO, Ot I73.9 PERIPHERAL VASCULAR DISEASE, UNSPECIFIED 09/21/2018 GERMAN GARZON DO Ot R06.00 DYSPNEA, UNSPECIFIED 09/21/2018 GERMAN GARZON DO Ot R60.0 LOCALIZED EDEMA 09/21/2018 GERMAN GARZON DO Ot I89.0 LYMPHEDEMA, NOT ELSEWHERE CLASSIFIED 09/21/2018 GERMAN GARZON DO Ot C61 MALIGNANT NEOPLASM OF PROSTATE 09/21/2018 GERMAN GARZON DO Ot K57.30 DVRTCLOS OF LG INT W/O PERFORATION OR AB 09/21/2018 GERMAN GARZON DO Ot N13.30 UNSPECIFIED HYDRONEPHROSIS 09/21/2018 GERMAN GARZON DO Ot R31.9 HEMATURIA, UNSPECIFIED 09/21/2018 GERMAN GARZON DO Ot R59.0 LOCALIZED ENLARGED LYMPH NODES 09/21/2018 GERMAN GARZON DO Ot R60.0 LOCALIZED EDEMA 09/22/2018 ETIENNE VO DO Ot G47.30 SLEEP APNEA, UNSPECIFIED 09/22/2018 ETIENNE VO DO Ot G89.18 OTHER ACUTE POSTPROCEDURAL PAIN 09/22/2018 ETIENNE VO DO Ot I10 ESSENTIAL (PRIMARY) HYPERTENSION 09/22/2018 ETIENNE VO DO Ot N13.6 PYONEPHROSIS 09/22/2018 ETIENNE VO DO Ot N39.0 URINARY TRACT INFECTION, SITE NOT SPECIF 09/22/2018 ETIENNE VO DO Ot T81.40XA INFECTION FOLLOWING A PROCEDURE, UNSPECI 09/22/2018 ETIENNE VO DO Ot Z80.0 FAMILY HISTORY OF MALIGNANT NEOPLASM OF 09/22/2018 ETIENNE VO DO Ot Z82.49 FAMILY HX OF ISCHEM HEART DIS AND OTH DI 09/22/2018 ETIENNE VO DO Ot Z85.46 PERSONAL HISTORY OF MALIGNANT NEOPLASM O 09/22/2018 ETIENNE VO DO Ot Z87.19 PERSONAL HISTORY OF OTHER DISEASES OF TH 09/22/2018 ETIENNE VO DO Ot Z87.891 PERSONAL HISTORY OF NICOTINE DEPENDENCE 09/22/2018 ETIENNE VO DO Ot Z90.49 ACQUIRED ABSENCE OF OTHER SPECIFIED PART 09/22/2018 ETIENNE VO DO Ot Z92.21 PERSONAL HISTORY OF ANTINEOPLASTIC CHEMO 09/22/2018 ETIENNE VO DO Ot Z96.0 PRESENCE OF UROGENITAL IMPLANTS 09/22/2018 ETIENNE VO DO Ot Z98.890 OTHER SPECIFIED POSTPROCEDURAL STATES 09/25/2018 ETIENNE VO DO Ot G47.30 SLEEP APNEA, UNSPECIFIED 09/25/2018 ETIENNE VO DO Ot G89.18 OTHER ACUTE POSTPROCEDURAL PAIN 09/25/2018 ETIENNE VO DO Ot I10 ESSENTIAL (PRIMARY) HYPERTENSION 09/25/2018 ETIENNE VO DO Ot N13.6 PYONEPHROSIS 09/25/2018 ETIENNE VO DO Ot N39.0 URINARY TRACT INFECTION, SITE NOT SPECIF 09/25/2018 ETIENNE VO DO Ot T81.40XA INFECTION FOLLOWING A PROCEDURE, UNSPECI 09/25/2018 ETIENNE VO DO Ot Z80.0 FAMILY HISTORY OF MALIGNANT NEOPLASM OF 09/25/2018 ETIENNE VO DO Ot Z82.49 FAMILY HX OF ISCHEM HEART DIS AND OTH DI 09/25/2018 ETIENNE VO DO Ot Z85.46 PERSONAL HISTORY OF MALIGNANT NEOPLASM O 09/25/2018 ETIENNE VO DO Ot Z87.19 PERSONAL HISTORY OF OTHER DISEASES OF TH 09/25/2018 ETIENNE VO DO Ot Z87.891 PERSONAL HISTORY OF NICOTINE DEPENDENCE 09/25/2018 ETIENNE VO DO Ot Z90.49 ACQUIRED ABSENCE OF OTHER SPECIFIED PART 09/25/2018 ETIENNE VO DO Ot Z92.21 PERSONAL HISTORY OF ANTINEOPLASTIC CHEMO 09/25/2018 ETIENNE VO DO Ot Z96.0 PRESENCE OF UROGENITAL IMPLANTS 09/25/2018 ETIENNE VO DO Ot Z98.890 OTHER SPECIFIED POSTPROCEDURAL STATES 11/09/2018 JEANMARIE TAVARES MD Ot Z01.818 ENCOUNTER FOR OTHER PREPROCEDURAL EXAMIN 11/10/2018 JEANMARIE TAVARES MD Ot Z01.818 ENCOUNTER FOR OTHER PREPROCEDURAL EXAMIN 11/14/2018 JEANMARIE TAVARES MD Ot 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 11/14/2018 JEANMARIE TAVARES MD Ot K21.9 GASTRO-ESOPHAGEAL REFLUX DISEASE WITHOUT 11/14/2018 JEANMARIE TAVARES MD Ot K29.80 DUODENITIS WITHOUT BLEEDING 11/14/2018 JEANMARIE TAVARES MD Ot K44.9 DIAPHRAGMATIC HERNIA WITHOUT OBSTRUCTION 11/14/2018 JEANMARIE TAVARES MD Ot K57.30 DVRTCLOS OF LG INT W/O PERFORATION OR AB 11/14/2018 JEANMARIE TAVARES MD Ot R63.4 ABNORMAL WEIGHT LOSS 11/14/2018 JEANMARIE TAVARES MD Ot Z85.46 PERSONAL HISTORY OF MALIGNANT NEOPLASM O 11/14/2018 JEANMARIE TAVARES MD Ot Z86.010 PERSONAL HISTORY OF COLONIC POLYPS 11/14/2018 JEANMARIE TAVARES MD Ot Z87.891 PERSONAL HISTORY OF NICOTINE DEPENDENCE 11/20/2018 JEANMARIE TAVARES MD Ot 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 11/20/2018 JEANMARIE TAVARES MD Ot K21.9 GASTRO-ESOPHAGEAL REFLUX DISEASE WITHOUT 11/20/2018 JEANMARIE TAVARES MD Ot K29.80 DUODENITIS WITHOUT BLEEDING 11/20/2018 JEANMARIE TAVARES MD Ot K44.9 DIAPHRAGMATIC HERNIA WITHOUT OBSTRUCTION 11/20/2018 JEANMARIE TAVARES MD Ot K57.30 DVRTCLOS OF LG INT W/O PERFORATION OR AB 11/20/2018 JEANMARIE TAVARES MD Ot R63.4 ABNORMAL WEIGHT LOSS 11/20/2018 JEANMARIE TAVARES MD Ot Z85.46 PERSONAL HISTORY OF MALIGNANT NEOPLASM O 11/20/2018 JEANMARIE TAVARES MD Ot Z86.010 PERSONAL HISTORY OF COLONIC POLYPS 11/20/2018 JEANMARIE TAVARES MD Ot Z87.891 PERSONAL HISTORY OF NICOTINE DEPENDENCE 11/20/2018 JEANMARIE TAVARES MD Ot 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 11/20/2018 JEANMARIE TAVARES MD Ot K21.9 GASTRO-ESOPHAGEAL REFLUX DISEASE WITHOUT 11/20/2018 JEANMARIE TAVARES MD Ot K29.80 DUODENITIS WITHOUT BLEEDING 11/20/2018 JEANMARIE TAVARES MD Ot K44.9 DIAPHRAGMATIC HERNIA WITHOUT OBSTRUCTION 11/20/2018 JEANMARIE TAVARES MD Ot K57.30 DVRTCLOS OF LG INT W/O PERFORATION OR AB 11/20/2018 JEANMARIE TAVARES MD Ot R63.4 ABNORMAL WEIGHT LOSS 11/20/2018 JEANMARIE TAVARES MD Ot Z85.46 PERSONAL HISTORY OF MALIGNANT NEOPLASM O 11/20/2018 ANUSHA YOUSSEF, JEANMARIE Hatch Ot Z86.010 PERSONAL HISTORY OF COLONIC POLYPS 11/20/2018 ANUSHA YOUSSEF, JEANMARIE Hatch Ot Z87.891 PERSONAL HISTORY OF NICOTINE DEPENDENCE 11/22/2018 ANUSHA YOUSSEF, JEANMARIE Hatch Ot 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 11/22/2018 JEANMARIE TAVARES MD Ot K21.9 GASTRO-ESOPHAGEAL REFLUX DISEASE WITHOUT 11/22/2018 JEANMARIE TAVARES MD Ot K29.80 DUODENITIS WITHOUT BLEEDING 11/22/2018 JEANMARIE TAVARES MD Ot K44.9 DIAPHRAGMATIC HERNIA WITHOUT OBSTRUCTION 11/22/2018 JEANMARIE TAVARES MD, Ot K57.30 DVRTCLOS OF LG INT W/O PERFORATION OR AB 11/22/2018 JEANMARIE TAVARES MD Ot R63.4 ABNORMAL WEIGHT LOSS 11/22/2018 JEANMARIE TAVARES MD Ot Z85.46 PERSONAL HISTORY OF MALIGNANT NEOPLASM O 11/22/2018 JEANMARIE TAVARES MD Ot Z86.010 PERSONAL HISTORY OF COLONIC POLYPS 11/22/2018 JEANMARIE TAVARES MD Ot Z87.891 PERSONAL HISTORY OF NICOTINE DEPENDENCE 11/30/2018 SAJAN VO DOA K Ot G47.30 SLEEP APNEA, UNSPECIFIED 11/30/2018 SAJAN VO DOA K Ot G89.18 OTHER ACUTE POSTPROCEDURAL PAIN 11/30/2018 TAVO VILLALOBOS ETIENNE K Ot I10 ESSENTIAL (PRIMARY) HYPERTENSION 11/30/2018 SAJAN VO DOA K Ot N13.6 PYONEPHROSIS 11/30/2018 ETIENNE VO DO Ot N39.0 URINARY TRACT INFECTION, SITE NOT SPECIF 11/30/2018 SAJAN VO DOA K Ot T81.40XA INFECTION FOLLOWING A PROCEDURE, UNSPECI 11/30/2018 SAJAN VO DOA K Ot Z80.0 FAMILY HISTORY OF MALIGNANT NEOPLASM OF 11/30/2018 ETIENNE VO DO Ot Z82.49 FAMILY HX OF ISCHEM HEART DIS AND OTH DI 11/30/2018 SAJAN VO DOA Kashif Ot Z85.46 PERSONAL HISTORY OF MALIGNANT NEOPLASM O 11/30/2018 SAJAN VO DOA Kashif Ot Z87.19 PERSONAL HISTORY OF OTHER DISEASES OF TH 11/30/2018 ETIENNE VO DO Ot Z87.891 PERSONAL HISTORY OF NICOTINE DEPENDENCE 11/30/2018 ETIENNE VO DO Ot Z90.49 ACQUIRED ABSENCE OF OTHER SPECIFIED PART 11/30/2018 ETIENNE VO DO Ot Z92.21 PERSONAL HISTORY OF ANTINEOPLASTIC CHEMO 11/30/2018 ETIENNE VO DO Ot Z96.0 PRESENCE OF UROGENITAL IMPLANTS 11/30/2018 ETIENNE VO DO Ot Z98.890 OTHER SPECIFIED POSTPROCEDURAL STATES 12/07/2018 MALORIE YOUSSEF, TC [place] Ot Z01.818 ENCOUNTER FOR OTHER PREPROCEDURAL EXAMIN 12/08/2018 MALORIE YOUSSEF, TC [place] Ot Z01.818 ENCOUNTER FOR OTHER PREPROCEDURAL EXAMIN Procedures Code Description Performed By Performed On 0MN48IG INSPECTION OF GALLBLADDER , PERCUTANEOUS 09/19/2018 [id number] RESECTION OF GALLBLADDER, OPEN APPROACH 09/19/2018 [id number] ROBOTIC ASSISTED PROCEDURE OF TRUNK, PER 09/19/2018 Results Test Result Range Complete blood count [...] culture - 09/15/18 00:17 Bacterial blood culture [facility] Blood lactic acid measurement (moles/volume) - 09/15/18 00:27 Blood lactic acid measurement (moles/volume) 1.51 mmol/L 0.50-2.00 Bacterial blood culture - 09/15/18 01:17 Bacterial blood culture [facility] Complete blood count (CBC) with automated white [...] Methicillin resistant Staphylococcus aureus (MRSA) screening culture NG NRG Complete blood count (CBC) with automated white [...] NRG Blood erythrocyte morphology finding identification NORMAL NR Comprehensive metabolic panel - 09/20/18 03:55 Serum [...] - 09/20/18 03:55 Magnesium 2.0 mg/dL 1.8-2.4 Complete urinalysis with reflex to culture - 09/21/18 21:59 Urine color determination YELLOW NRG Urine clarity determination CLEAR NRG Urine pH measurement by test strip 8 5-9 Specific gravity of urine by test strip 1.015 1.016- 1.022 Urine protein assay by test strip, semi-quantitative 2+ NEGATIVE Urine glucose detection by automated test strip NEGATIVE NEGATIVE Erythrocytes detection in urine sediment by light microscopy 5+ NEGATIVE Urine ketones detection by automated test strip NEGATIVE NEGATIVE Urine nitrite detection by test strip NEGATIVE NEGATIVE Urine total bilirubin detection by test strip NEGATIVE NEGATIVE Urine urobilinogen measurement by automated test strip (mass/volume) NORMAL NORMAL Urine leukocyte esterase detection by dipstick 1+ NEGATIVE Automated urine sediment erythrocyte count by microscopy (number/high power field) > [HPF] NRG Automated urine sediment leukocyte count by microscopy (number/high power field ) [HPF] NRG Bacteria detection in urine sediment by light microscopy FEW NRG Crystals detection in urine sediment by light microscopy NONE NRG Casts detection in urine sediment by light microscopy NONE NRG Mucus detection in urine sediment by light microscopy NEGATIVE NRG Complete urinalysis with reflex to culture YES NRG Bacterial urine culture - 09/21/18 21:59 Bacterial urine culture NG NRG Complete blood count (CBC) with automated white blood cell (WBC) differential - 09/21/18 22:20 Blood leukocytes automated count (number/volume) 12.7 10*3/uL 4.3-11.0 Blood erythrocytes automated count (number/volume) 4.63 10*6/uL 4.35-5.85 Venous blood hemoglobin measurement (mass/volume) 12.5 g/dL 13.3-17.7 Blood hematocrit (volume fraction) 39 % 40-54 Automated erythrocyte mean corpuscular volume 84 [foz_us] 80-99 Automated erythrocyte mean corpuscular hemoglobin (mass per erythrocyte) 27 pg 25-34 Automated erythrocyte mean corpuscular hemoglobin concentration measurement ( mass/volume) 32 g/dL 32-36 Automated erythrocyte distribution width ratio 14.6 % 10.0-14.5 Automated blood platelet count (count/volume) 366 10*3/uL 130-400 Automated blood platelet mean volume measurement 9.1 [foz_us] 7.4-10.4 Automated blood neutrophils/100 leukocytes 85 % 42-75 Automated blood lymphocytes/100 leukocytes 5 % 12-44 Blood monocytes/100 leukocytes 11 % 0-12 Automated blood eosinophils/100 leukocytes 0 % 0-10 Automated blood basophils/100 leukocytes 0 % 0-10 Blood neutrophils automated count (number/volume) 10.7 10*3 1.8-7.8 Blood lymphocytes automated count (number/volume) 0.6 10*3 1.0-4.0 Blood monocytes automated count (number/volume) 1.3 10*3 0.0-1.0 Automated eosinophil count 0.0 10*3/uL 0.0-0.3 Automated blood basophil count (count/volume) 0.0 10*3/uL 0.0-0.1 Comprehensive metabolic panel - 09/21/18 22:20 Serum or plasma sodium measurement (moles/volume) 136 mmol/L 135-145 Serum or plasma potassium measurement (moles/volume) 3.6 mmol/L 3.6-5.0 Serum or plasma chloride measurement (moles/volume) 98 mmol/L 98-107 Carbon dioxide 26 mmol/L 21-32 Serum or plasma anion gap determination (moles/volume) 12 mmol/L 5-14 Serum or plasma urea nitrogen measurement (mass/volume) 20 mg/dL 7-18 Serum or plasma creatinine measurement (mass/volume) 1.14 mg/dL 0.60-1.30 Serum or plasma urea nitrogen/creatinine mass ratio 18 NRG Serum or plasma creatinine measurement with calculation of estimated glomerular filtration rate > NRG Serum or plasma glucose measurement (mass/volume) 163 mg/dL 70-105 Serum or plasma calcium measurement (mass/volume) 9.1 mg/dL 8.5-10.1 Serum or plasma total bilirubin measurement (mass/volume) 0.4 mg/dL 0.1-1.0 Serum or plasma alkaline phosphatase measurement (enzymatic activity/volume) 124 U/L 40-136 Serum or plasma aspartate aminotransferase measurement (enzymatic activity/ volume) 38 U/L 5-34 Serum or plasma alanine aminotransferase measurement (enzymatic activity/volume ) 26 U/L 0-55 Serum or plasma protein measurement (mass/volume) 7.3 g/dL 6.4-8.2 Serum or plasma albumin measurement (mass/volume) 3.3 g/dL 3.2-4.5 CALCIUM CORRECTED 9.7 mg/dL 8.5-10.1 Serum or plasma amylase measurement (enzymatic activity/volume) - 09/21/18 22: 20 Serum or plasma amylase measurement (enzymatic activity/volume) 27 U /L 25-125 Lipase - 09/21/18 22:20 Lipase 27 U/L 8-78 Encounters ACCT No. Visit Date/Time Discharge Status Pt. Type Provider Facility Loc./Unit Complaint [id number] 12/07/2018 05:39:00 12/07/2018 14:25:00 DIS Outpatient TC ESPANA MD [facility] PREOP PROSTATE CANCER [id number] 11/14/2018 06:48:00 11/14/2018 09:10:00 DIS Outpatient JEANMARIE TAVARES MD [facility] ENDO SCREENING, ADENOCARCINOMA OF ?PRIMARY [id number] 11/09/2018 06:23:00 11/09/2018 10:43:00 DIS Outpatient JEANMARIE TAVARES MD [facility] PREOP COLONOSCOPY/EGD [id number] 09/21/2018 20:57:00 09/22/2018 01:35:00 DIS Outpatient ETIENNE VO DO [facility] ER POST GALL BLADDER SURGERY COMPLICATIONS [id number] 09/19/2018 09:01:00 09/21/2018 11:33:00 DIS Inpatient TC ESPANA MD [facility] 4TH CHOLELITHIASIS [id number] 09/18/2018 10:38:00 09/18/2018 10:54:00 DIS Outpatient TC ESPANA MD [facility] PREOP CHLELITHIASIS [id number] 09/14/2018 21:34:00 09/15/2018 18:00:00 DIS Outpatient IRLANDA UMAÑA MD [facility] 4TH CHEST PAIN,N/V,METS PROSTATE CA [id number] 09/04/2018 12:01:00 09/04/2018 23:59:59 CLS Outpatient GERMAN GARZON DO [facility] RAD CA PROSTATE, HEMATURIA [id number] 11/12/2015 13:52:00 11/12/2015 23:59:59 CLS Outpatient GERMAN GARZON DO [facility] RAD LYMPHODEMA [id number] 10/16/2015 09:18:00 10/16/2015 23:59:59 CLS Outpatient GERMAN GARZON DO [facility] RAD EDEMA LEFT CALF AND FOOT [id number] 09/09/2015 09:16:00 09/09/2015 23:59:59 CLS Outpatient GERMAN GARZON DO [facility] RAD DYSPNEA,CLAUDICATION [id number] 09/05/2015 11:04:00 09/05/2015 23:59:59 CLS Outpatient GERMAN GARZON DO [facility] RAD DYSPNEA, CLAUDICATION , SYMPTOM [id number] 07/22/2015 14:20:00 07/22/2015 23:59:59 CLS Outpatient GERMAN GARZON DO [facility] CARD CHEST PAIN [id number] 03/10/2015 00:08:00 03/10/2015 23:59:59 CLS Preadmit DANIELA FELIPE MD [facility] ONC [id number] 12/09/2014 09:50:00 03/09/2015 00:01:00 DIS Outpatient DANIELA FELIPE MD [facility] ONC [id number] 10/23/2014 12:05:00 10/23/2014 23:59:59 CLS Outpatient AUGUSTINA DELUCA MD [facility] CARD PROSTATE CANCER [id number] 01/24/2014 06:15:00 01/24/2014 11:42:00 DIS Outpatient JEFRY DUFF DO [facility] SDC CYST ON BACK [id number] 01/23/2014 09:44:00 01/23/2014 23:59:59 CLS Outpatient JEFRY DUFF DO [facility] PREOP CYST ON BACK [id number] 06/12/2013 07:48:00 06/12/2013 09:55:00 DIS Outpatient [facility] [id number] 06/07/2013 07:15:00 06/07/2013 23:59:59 CLS Outpatient JEANMARIE TAVARES MD [facility] PREOP SCREENING [id number] 05/22/2013 08:14:00 05/22/2013 23:59:59 CLS Outpatient GERMAN GARZON DO [facility] RAD LT LOWER QUAD PAIN [id number] 05/21/2013 09:04:00 05/21/2013 23:59:59 CLS Outpatient MATTEO YOUSSEF, DANIELA Penn [facility] ONC [id number] 12/11/2018 12:30:00 PEN Preadmit MALORIE YOUSSEF, TC [place] [facility] PROSTATE CA [id number] 01/17/2013 16:18:00 Document Registration [id number] 12/22/2012 08:48:00 Document Registration [id number] 11/24/2012 06:00:00 Document Registration [id number] 11/13/2012 15:29:00 Document Registration [id number] 09/12/2012 08:50:00 Document Registration [id number] 08/25/2012 11:16:00 Document Registration
[2018-12-11 10:55] VITALS: BP 146/85
[2018-12-11] MEDS ORDERED: ceFAZolin 2 GM IV Premixed 50 ML IV ONE (11:00)
[2018-12-11] MEDS ORDERED: LACTATED RINGERS 1,000 ML IV PRN (11:00)
--- NOTE | 2018-12-11 11:05 | History & Physicial ---
History of Present Illness History of Present Illness Reason for visit/HPI For Vfniqb-r-Kbzg placement to facilitate chemotherapy, to manage metastatic prostatic carcinoma Date of Admission 12/11/18 Date Seen by a Provider: Dec 11, 2018 Time Seen by a Provider: 11:04 I consulted on this patient on 12/11/18 11:04 Attending Physician Tc Espana MD Admitting Physician Crispin Morris DO Consult Allergies and Home Medications Allergies Coded Allergies: No Known Drug Allergies (Unverified , 11/13/12) Home Medications Calcium Carbonate/Vitamin D3 1 Each Tablet, 1 TAB PO DAILY, (Reported) Clotrimazole/Betamethasone Dip 15 Gm Cream..g., TOP HS, (Reported) Cyanocobalamin (Vitamin B-12) 1,000 Mcg Tablet, 1,000 MCG PO DAILY, (Reported) Diltiazem HCl 120 Mg Tablet, 120 MG PO BID, (Reported) Minocycline HCl 100 Mg Capsule, 100 MG PO DAILY, (Reported) Tamsulosin HCl 0.4 Mg Cap.er.24h, 0.4 MG PO DAILY, (Reported) Triamterene/Hydrochlorothiazid 1 Each Capsule, 1 CAP PO DAILY, (Reported) Patient Home Medication List Home Medication List Reviewed: Yes Past Qcrexed-Fpygme-Pwijsg Hx Patient Social History Marrital Status: Employed/Student: retired Former Smoker, Quit: Sep 18, 1960 Type Used: Cigarettes 2nd Hand Smoke Exposure: No Recent Foreign Travel: No Contact w/other who traveled: No Recent Hopitalizations: No Immunizations Up To Date Tetanus Booster (TDap): Unknown Pediatric: Yes Date of Pneumonia Vaccine: Sep 07, 2016 Date of Influenza Vaccine: Aug 07, 2018 Seasonal Allergies Seasonal Allergies: No Surgeries Yes Abdominal, Gallbladder, Orthopedic Respiratory Yes Currently Using CPAP: Yes Currently Using BIPAP: No Cardiovascular Yes (Lymph edema, greater on the left) Hypertension Neurological No Reproductive System Hx Reproductive Disorders: No Sexually Transmitted Disease: No HIV/AIDS: No Genitourinary Yes ("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; PROSTATE CANCER) Prostate Problems Gastrointestinal Yes (CHOLECYSTECTOMY 09/19/18) Diverticulosis Musculoskeletal No Endocrine History of Endocrine Disorders: No HEENT History of HEENT Disorders: No Loss of Vision: Denies Hearing Impairment: Denies Cancer Yes Prostate Did You Recieve Any Treatments: Yes Type of Treatment: Radiation Psychosocial History of Psychiatric Problem: No Integumentary History of Skin or Integumenta: No Blood Transfusions History of Blood Disorders: No Adverse Reaction to a Blood Tr: No Family Medical History Significant Family History: Heart Disease, CAD Over 55 Years Old, Diabetes Family Hx: Diabetes mellitus 19 MOTHER Kidney disease G8 BROTHER PANCREATIC CANCER G8 SISTER Review of Systems Constitutional: no symptoms reported EENTM: no symptoms reported Respiratory: no symptoms reported Cardiovascular: no symptoms reported Gastrointestinal: no symptoms reported Genitourinary: see HPI Musculoskeletal: no symptoms reported Skin: no symptoms reported Psychiatric/Neurological: No Symptoms Reported Physical Exam Vital Signs Capillary Refill : Height, Weight, BMI Height: 6'0.00" Weight: 220lbs. 0.0oz. 99.541643eb; 29.8 BMI Method:Estimated General Appearance: No Apparent Distress Neck: Normal Inspection Respiratory: Lungs Clear Cardiovascular: Regular Rate, Rhythm Gastrointestinal: Non Tender, Soft Neurologic/Psychiatric: Alert, Oriented x3 Skin: Warm/Dry Assessment/Plan Assessment and Plan gentleman with metastatic prostatic carcinoma. For Zoevvj-q-Icrx placement Admission Diagnosis Admission Status: Other (Same Day Surgery) TC ESPANA MD Dec 11, 2018 11:05
--- NOTE | 2018-12-11 11:06 | Progress Note-Pre Operative ---
Pre-Operative Progress Note H&P Reviewed The H&P was reviewed, patient examined and no changes noted. Date Seen by Provider: Dec 11, 2018 Time Seen by Provider: 11:05 Date H&P Reviewed: Dec 11, 2018 Time H&P Reviewed: 11:05 Pre-Operative Diagnosis: metastatic prostatic carcinoma TC ESPANA MD Dec 11, 2018 11:06
[2018-12-11] MEDS ORDERED: proPOfol 200 MG/20 ML (DIPRIVAN) VIAL IV ONE (11:12)
[2018-12-11] MEDS ORDERED: SEVOFLURANE (ULTANE) 15 ML INHAL SOLN ONE ×2 (11:12→12:51)
[2018-12-11] MEDS ORDERED: LIDOCAINE PF 2% 5 ML (XYLOCAINE) VIAL ONE (11:12)
[2018-12-11] MEDS ORDERED: fentaNYL INJECTION 100 MCG/2 ML AMP ONE (11:13)
[2018-12-11] MEDS ORDERED: BUP/EPI 0.5% 1:200,000 (SENSORCAINE) 30 ML VIAL ONE (11:34)
[2018-12-11] MEDS ORDERED: HEParin (CENTRAL IV FLUSH) 500 UNIT/5 ML SYR ONE (11:34)
[2018-12-11] MEDS ORDERED: 0.9% SODIUM CHLORIDE PF INJ 20 ML VIAL ONE (11:56)
[2018-12-11] MEDS ORDERED: ONDANSETRON 4 MG/2 ML (SDV) Z0FRAN ONE (12:33)
[2018-12-11] MEDS ORDERED: morphine INJ 10 MG/ML 1ML (SYR OR VIAL) IVP ONE (13:15)
[2018-12-11] MEDS ORDERED: ONDANSETRON 4 MG/2 ML (SDV) Z0FRAN IVP PRN (13:15)
[2018-12-11] MEDS ORDERED: MEPERIDINE (DEMEROL) INJ 50 MG/ML IVP ONE (13:15)
--- NOTE | 2018-12-11 13:15 | NUR ---
RECEIVED VERBAL ORDER FROM DR. ESPANA TO CONTINUE CURRENT HOME MEDICATIONS AND THAT PATIENT HAS ENOUGH PAIN MEDIATION AT HOME HE REPORTED RECEIVED FROM DR. JONES. FOLLOW UP WITH ONCOLOGIST.
--- NOTE | 2018-12-11 13:43 | Operative Report ---
Operative Report Date of Procedure/Surgery Dec 11, 2018 Surgeon (s) TC ESPANA MD Type Copy Examiner (s): N/A Post-Operative Diagnosis Same Procedure Performed Fzwlwf-c-Oyui placement Description of Procedure Anesthesia Type: General Estimated blood loss (mL): Minimal Specimen(s) collected/removed None Description of the Procedure Indication for the procedure: This gentleman is due to receive systemic chemotherapy to manage metastatic carcinoma the urinary bladder. To facilitate this, placing an Rorhky-s-Yvpc was felt to be appropriate. Informed consent was obtained after reviewing the operative details and complications of hematoma , bacteremia and malfunction of the catheter, requiring replacement. Description of the procedure: He was placed supine on the operative table and general anesthesia induced. A gram of Ancef was administered intravenously as prophylaxis against wound infection. Sequential compression devices were placed around his legs, to minimize the risk of venous thrombosis. His neck and upper chest were prepared and draped in the usual sterile manner. Right internal jugular vein was localized using the 12 MHz ultrasound probe and a floppy guidewire introduced into the heart, under fluoroscopy. A subcutaneous pocket was created over the infraclavicular fossa and the Joseph catheter brought into the neck, in a retrograde fashion. It was then advanced into the heart under fluoroscopy, using the peel-away sheath. The catheter was then pulled back to the superior vena cava under fluoroscopy and connected to the Vtbbky-t-Nkos, that had been primed with heparinized saline. I was able to aspirate and flush the system without any difficulty. The port was then secured to the pectoralis muscle using 2-0 Prolene sutures. Incision was then closed using 3-0 Vicryl for the dermal layer and 4-0 Vicryl for skin, in a subcuticular fashion. Preemptive analgesia was established using 0.5 percent Marcaine with epinephrine. He tolerated the procedure well, was extubated in the operating room and taken to the recovery room in a stable condition. Findings of the Procedure See op report Allergies and Home Medications Allergies Coded Allergies: No Known Drug Allergies (Unverified , 11/13/12) Home Medications Calcium Carbonate/Vitamin D3 1 Each Tablet, 1 TAB PO DAILY, (Reported) Clotrimazole/Betamethasone Dip 15 Gm Cream..g., TOP HS, (Reported) Cyanocobalamin (Vitamin B-12) 1,000 Mcg Tablet, 1,000 MCG PO DAILY, (Reported) Diltiazem HCl 120 Mg Tablet, 120 MG PO BID, (Reported) Minocycline HCl 100 Mg Capsule, 100 MG PO DAILY, (Reported) Tamsulosin HCl 0.4 Mg Cap.er.24h, 0.4 MG PO DAILY, (Reported) Triamterene/Hydrochlorothiazid 1 Each Capsule, 1 CAP PO DAILY, (Reported) Patient Home Medication List Home Medication List Reviewed: Yes TC ESPANA MD Dec 11, 2018 13:43
--- NOTE | 2018-12-11 13:47 | Anesthesia-General Post-Op ---
General Patient Condition Mental Status/LOC: Same as Preop Cardiovascular: Satisfactory Nausea/Vomiting: Absent Respiratory: Satisfactory Pain: Controlled Complications: Absent Post Op Complications Complications None Follow Up Care/Instructions Patient Instructions None needed. Anesthesia/Patient Condition Patient Condition Patient is doing well, no complaints, stable vital signs, no apparent adverse anesthesia problems. No complications reported per nursing. NETO ZUNIGA CRNA Dec 11, 2018 13:47
[2018-12-11 13:55] VITALS: BP 130/78
--- NOTE | 2018-12-11 13:55 | Diagnostic Imaging Report ---
INDICATION: Port placement. TECHNIQUE: Single intraprocedural images upper chest, 12:35 PM CORRELATION STUDY: None FINDINGS: Fluoroscopy utilized by Dr. Rivas. A single intraprocedure image over the central superior aspect chest demonstrates a partial visualization of a right IJ line. The tip projects over the high right atrium. Just adjacent to the line and over the region of the medial clavicle is a ribbon-like foreign body. Fluoroscopy time: 40 seconds IMPRESSION: 1. Partial visualization of right IJ central line tip projecting over the right atrium. 2. Ribbon-like density suggests foreign body over the superior mid chest. Clinical correlation recommended. Dictated by: Dictated on workstation # [id number]
[2018-12-11 14:25] VITALS: BP 122/74
[2018-12-11 14:55] VITALS: BP 121/69
== END 2018-12-11 15:15 | disposition home or self-care (01) ==
LOC: SDC 10:47
PROVIDERS: ATTEND Surgery
DX: C61 Malignant neoplasm of prostate (principal); C79.11 Secondary malignant neoplasm of bladder; I10 Essential (primary) hypertension; G47.33 Obstructive sleep apnea (adult) (pediatric); Z87.891 Personal history of nicotine dependence; Z79.899 Other long term (current) drug therapy; Z92.3 Personal history of irradiation; Z82.49 Family history of ischemic heart disease and other diseases of the circulatory system; Z11.2 Encounter for screening for other bacterial diseases
CPT/HCPCS: 87081

== ENCOUNTER → 2019-01-08 | Outpatient (CLI) | payer MEDICARE ==
[~2019-01-08] MED LIST changes: +ACET-2267 PO; +CALC-694 PO; +LEVO750T39 PO; +MULT1TAB69 PO; +OXYB10TA PO; +OXYC-529 PO
[2019-01-08 17:43] LABS: BASOPHILS # (AUTO) 0.1 10^3/uL (0.0-0.1); BASOPHILS % (AUTO) 1 % (0-10); EOSINOPHILS % (AUTO) 0 % (0-10); HEMATOCRIT 37 % (40-54); HEMOGLOBIN 12.1 G/DL (13.3-17.7); LYMPHOCYTES # (AUTO) 0.9 X 10^3 (1.0-4.0); LYMPHOCYTES % (AUTO) 9 % (12-44); MEAN CORPUSCULAR HEMOGLOBIN 27 PG (25-34); MEAN CORPUSCULAR HGB CONC 33 G/DL (32-36); MEAN CORPUSCULAR VOLUME 83 FL (80-99); MEAN PLATELET VOLUME 8.4 FL (7.4-10.4); MONOCYTES # (AUTO) 1.8 X 10^3 (0.0-1.0); MONOCYTES % (AUTO) 16 % (0-12); NEUTROPHILS # (AUTO) 7.9 X 10^3 (1.8-7.8); NEUTROPHILS % (AUTO) 74 % (42-75); PLATELET COUNT 564 10^3/uL (130-400); RED CELL DISTRIBUTION WIDTH 16.8 % (10.0-14.5); WHITE BLOOD COUNT 10.8 10^3/uL (4.3-11.0)
--- NOTE | 2019-01-08 17:54 | Diagnostic Imaging Report ---
INDICATION: Chest pain and dyspnea. PA and lateral views of the chest are obtained with comparison made to study of 09/20/2018. FINDINGS: There has been placement of right anterior chest wall port. There is mild increased density in right parahilar region with increasing blunting of the left costophrenic sulcus. No pneumothorax is identified. IMPRESSION: Parahilar edema and/or pneumonitis which is greater on the right with increasing left pleural fluid. Dictated by: Dictated on workstation # [id number]
[2019-01-08 17:55] LABS: ALANINE AMINOTRANSFERASE 11 U/L (0-55); ALBUMIN 3.2 GM/DL (3.2-4.5); ALKALINE PHOSPHATASE 77 U/L (40-136); BILIRUBIN,TOTAL 0.2 MG/DL (0.1-1.0); BUN/CREATININE RATIO 15; CALCIUM 9.2 MG/DL (8.5-10.1); CARBON DIOXIDE 24 MMOL/L (21-32); CHLORIDE 100 MMOL/L (98-107); CREATININE SERUM 1.13 MG/DL (0.60-1.30); GFR ESTIMATED > 60; GLUCOSE 167 MG/DL (70-105); POTASSIUM 3.8 MMOL/L (3.6-5.0); SODIUM 136 MMOL/L (135-145)
== END ==
LOC: RAD 16:33
PROVIDERS: ATTEND Internal Medicine
DX: R07.89 Other chest pain (principal); R06.00 Dyspnea, unspecified; Z95.828 Presence of other vascular implants and grafts
CPT/HCPCS: 36415; 71046; 80053; 85025; 85379; 87040

== ENCOUNTER 2019-01-09 14:28 | Inpatient (IN) | payer MEDICARE ==
[~2019-01-09] VITALS: Ht 182.9 cm; Wt 94.3 kg
[~2019-01-09 14:28] MED LIST changes: -ACET-2267 PO; -CALC-694 PO; -IOHEXOL 350 MG/ML 150 ML (OMNIPAQUE 350) VIAL IV ONE; -LEVO750T39 PO; -MULT1TAB69 PO; -NS 100 ML (IVPB) BAG IV ONE; -OXYB10TA PO; -OXYC-529 PO; -RECEIVED CONTRAST 20 ML VIAL IV SCH
--- NOTE | 2019-01-09 14:30 | NUR ---
This nurse witnessed pt report to Dr. Ospina that pt is requesting to be a DNR.
[2019-01-09] MEDS ORDERED: HEParin DRIP 25000 UNIT/500ML 500 ML IV ONE (14:51)
--- NOTE | 2019-01-09 14:54 | ED General ---
General Stated Complaint: PULMONARY EMBOLISM Source of Information: Patient Exam Limitations: No Limitations History of Present Illness Date Seen by Provider: Jan 09, 2019 Time Seen by Provider: 14:32 Initial Comments Here by wheelchair from the radiology waiting area after patient was found to have large saddle embolism. Patient has recently had some shortness of breath and tachycardia. He is noted to have grossly elevated d-dimer and CT angiogram was ordered outpatient. This was positive. He was brought to the emergency department by his primary care provider, Dr. Morris. Patient does have history of prostate cancer and metastatic transitional cell carcinoma. He is denying any pain and any other complaints other than stated above. Timing/Duration: 1-2 Days Severity: Mild, Moderate Associated Systoms: No Chest Pain, No Cough, No Fever/Chills, No Nausea/ Vomiting; Shortness of Air; No Weakness Allergies and Home Medications Allergies Coded Allergies: No Known Drug Allergies (Unverified , 11/13/12) Home Medications Calcium Carbonate/Vitamin D3 1 Each Tablet, 1 TAB PO DAILY, (Reported) Clotrimazole/Betamethasone Dip 15 Gm Cream..g., TOP HS, (Reported) Cyanocobalamin (Vitamin B-12) 1,000 Mcg Tablet, 1,000 MCG PO DAILY, (Reported) Diltiazem HCl 120 Mg Tablet, 120 MG PO BID, (Reported) Minocycline HCl 100 Mg Capsule, 100 MG PO DAILY, (Reported) Tamsulosin HCl 0.4 Mg Cap.er.24h, 0.4 MG PO DAILY, (Reported) Triamterene/Hydrochlorothiazid 1 Each Capsule, 1 CAP PO DAILY, (Reported) Patient Home Medication List Home Medication List Reviewed: Yes Review of Systems Review of Systems Constitutional: see HPI; No chills, No fever EENTM: no symptoms reported Respiratory: short of breath; No wheezing Cardiovascular: no symptoms reported Gastrointestinal: No abdominal pain, No nausea, No vomiting Genitourinary: no symptoms reported Musculoskeletal: no symptoms reported All Other Systems Reviewed Negative Unless Noted: Yes Past Gggckrd-Jhaqjq-Axvech Hx Past Med/Social Hx: Reviewed Nursing Past Med/Soc Hx Patient Social History Alcohol Use: Denies Use Recreational Drug Use: No Smoking Status: Former Smoker Type Used: Cigarettes Former Smoker, Quit: Sep 18, 1960 2nd Hand Smoke Exposure: No Recent Hopitalizations: No Immunizations Up To Date Tetanus Booster (TDap): Unknown PED Vaccines UTD: Yes Date of Pneumonia Vaccine: Sep 07, 2016 Date of Influenza Vaccine: Aug 07, 2018 Seasonal Allergies Seasonal Allergies: No Past Medical History Surgeries: Yes Abdominal, Gallbladder, Orthopedic Respiratory: Yes Sleep Apnea Currently Using CPAP: Yes Currently Using BIPAP: No Cardiac: Yes (Lymph edema, greater on the left) Hypertension Neurological: No Reproductive Disorders: No Sexually Transmitted Disease: No HIV/AIDS: No 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; PROSTATE CANCER) Prostate Problems Gastrointestinal: Yes (CHOLECYSTECTOMY 09/19/18) Diverticulosis Musculoskeletal: No Endocrine: No HEENT: No Loss of Vision: Denies Hearing Impairment: Denies Cancer: Yes Prostate Did You Recieve Any Treatments: Yes What Type of Treatment Did You: Radiation Psychosocial: No Integumentary: No Blood Disorders: No Adverse Reaction/Blood Tranf: No Family Medical History Reviewed Nursing Family Hx Diabetes mellitus 19 MOTHER Kidney disease G8 BROTHER PANCREATIC CANCER G8 SISTER Heart Disease, CAD Over 55 Years Old, Diabetes Physical Exam Vital Signs Capillary Refill : Height, Weight, BMI Height: 6'0.00" Weight: 215lbs. 8.0oz. 97.140196tu; 29.2 BMI Method:Estimated General Appearance: No Apparent Distress, WD/WN HEENT: PERRL/EOMI, Pharynx Normal Neck: Non Tender, Supple Respiratory: Lungs Clear, Normal Breath Sounds Cardiovascular: No Murmur, Tachycardia Gastrointestinal: Non Tender, Soft Back: Normal Inspection, No CVA Tenderness, No Vertebral Tenderness Extremity: Normal Range of Motion, Non Tender Neurologic/Psychiatric: Alert, Oriented x3 Skin: Normal Color, Warm/Dry Progress/Results/Core Measures Suspected Sepsis SIRS Temperature: Pulse: Respiratory Rate: Blood Pressure / Mean: Laboratory Tests 01/09/19 14:38: INR Comment 1.1 Results/Orders Lab Results Laboratory Tests Test 01/09/19 14:38 Range/Units Prothrombin Time 14.6 12.2-14.7 SEC INR Comment 1.1 0.8-1.4 Activated Partial Thromboplast Time 36 H 24-35 SEC My Orders Orders - MAURA SPAIN MD Protime With Inr (01/09/19 14:44) Partial Thromboplastin Time (01/09/19 14:44) Heparin Drip 31990 Unit/500ml (Heparin (01/09/19 14:51) Heparin (Bolus Per Protocol) (Heparin (B (01/09/19 15:00) Medications Given in ED Current Medications Medications Dose Ordered Sig/Kathie Route Start Time Stop Time Status Last Admin Dose Admin Heparin Sodium (Porcine) HEPARIN FULL PROTOC... ONCE ONCE IV 01/09/19 15:00 01/09/19 15:01 DC 01/09/19 15:12 5,000 UNIT Heparin Sodium/ Dextrose 500 ml @ 0 mls/hr Q0M ONCE IV 01/09/19 14:51 01/09/19 14:52 DC 01/09/19 15:20 24 MLS/HR Vital Signs/I&O Capillary Refill : Progress Note : Progress Note Seen and evaluated. Reviewed CT scan results from today. I did discuss his findings and concerns with his primary care physician. Due to the large saddle embolus, patient will require admission. I did review his labs done here yesterday evening. We did add coag studies and initiated heparin drip fullness protocol given the embolus. I did discuss the case with Dr. Umaña at 1438 and he accepts patient for admission, inpatient status. Requesting oncology consult due to needs for anticoagulation and concerns regarding his chemotherapy regimen. This was placed at 1530. We are waiting a bed to open up and patient will be admitted to [facility] floor. Admit, inpatient status. Patient and family agree with plan. Patient requested DO NOT RESUSCITATE status. 1540: Patient has reported that he is currently being treated for pneumonia. CT scan shows questionable infiltrates although CBC from last night wouldn't indicate infectious process. Infiltrates may be related to pulmonary embolism but since treatment has been initiated with Levaquin as outpatient we will continue that inpatient currently. At this time we will go ahead and add blood cultures and lactic acid and basic labs given the new concerns. Otherwise continue treatment. Patient will be off protocol as he has had outpatient antibiotics already. This was discussed with Dr. UMAÑA who agrees. Diagnostic Imaging Diagonstic Imaging: CT Plain Films/CT/US/NM/MRI: chest Comments [facility] [place], [place] NAME: LACY DAVE [facility] REC#: [id number] PT STATUS: REG CLI : 1940 PHYSICIAN: CRISPIN MORRIS DO ADMIT DATE: 01/09/19/RAD Draft Date of Exam:01/09/19 CT ANGIO CHEST W PROCEDURE: CT angiography of the chest with contrast. TECHNIQUE: Multiple contiguous axial images were obtained through the chest after uneventful bolus administration of intravenous contrast. 2D reconstructed CTA MIP acquisitions were also performed. INDICATION: Elevated d-dimer with chest pain, shortness of breath. Correlation is made with prior CT from 09/14/2018. Evaluation of the pulmonary arterial system does show a saddle embolus in the central pulmonary arteries. There is thrombus extending into right upper lobe lobar and segmental branch. Right lower lobe pulmonary arteries are unremarkable. There is emboli occupying left upper lobe lobar and segmental branches as well as left lower lobe lobar and segmental branches. [place] as well as the anterior left upper lobe. There is associated infiltrate or atelectasis in the left lower lobe. Patient has developed a moderate-sized left pleural effusion layering dependently to a thickness of 5 cm. No right-sided pleural fluid is seen. There is no pericardial effusion. A right chest wall port is in place. No axillary lymphadenopathy is seen. There are enlarged lymph nodes in the holly bilaterally and subcarinal region, previously described. There appears to be some soft tissue density right paraesophageal location at the level of the distal esophagus. Upper abdomen does show a development of perihepatic and perisplenic ascites. There is some nodularity to the omentum in the anterior abdomen both in the right upper and right and left upper quadrant, suspicious for developing peritoneal carcinomatosis. A low-density lesion in the medial right lobe of the liver inferiorly is also noted and unchanged. There is a tiny low-density lesion more anteriorly in the right lobe again noted. IMPRESSION: 1. Findings consistent with a central saddle pulmonary embolus and bilateral upper and lower lobe pulmonary emboli. 2. Development of moderate left pleural effusion. There are also patchy pulmonary infiltrates present. 3. Mediastinal and hilar lymphadenopathy. 4. Development of upper abdominal ascites. There is also some omental nodularity developing suspicious for omental caking and peritoneal carcinomatosis. Results were called and discussed with Dr. Crispin Morris at 1:35 PM. Dictated on workstation # [id number] Dict: 01/09/19 1328 Trans: 01/09/19 1352 [facility] [id number] Interpreted by: ELEAZAR VILLA MD Electronically signed by: Reviewed: Reviewed by Me Departure Communication (Admissions) Time/Spoke to Admitting Phy: 14:38 Time/Spoke to Consulting Phy: 15:30 Impression Primary Impression: Saddle embolism of pulmonary artery Qualified Codes: I26.92 - Saddle embolus of pulmonary artery without acute cor pulmonale Additional Impression: Bilateral pneumonia Qualified Codes: J18.9 - Pneumonia, unspecified organism Disposition: ADMITTED INPATIENT Condition: Stable Admissions Decision to Admit Reason: Admit from ER (General) Decision to Admit/Date: Jan 09, 2019 Time/Decision to Admit Time: 14:38 Departure-Patient Inst. Referrals: CRISPIN MORRIS DO (PCP/Family) Primary Care Physician MAURA SPAIN MD Jan 09, 2019 14:54
[2019-01-09] MEDS ORDERED: HEParin 1000 UNIT/ML (10ML VIAL) FOR BOLUS IV ONE (15:00)
[2019-01-09 15:08] LABS: INR 1.1 (0.8-1.4); PROTHROMBIN TIME PATIENT 14.6 SEC (12.2-14.7)
--- OUTSIDE RECORDS SUMMARY | 2019-01-09 15:17 | XMS REPORT | Encounter Summary ---
Author Author [facility] Organization [facility] Address Unknown Phone Unavailable Care Team Providers Care Blockman Name Role Phone PCP Unavailable Encounter Details Care Team Description Date Type Department 10/23/2018 Hospital [facility] Hospital Radiology [facility] [address] [place] [address] Social History Date Tobacco Use Types Packs/Day Years Used Never Assessed Sex Assigned at Date Recorded Not on file Industry Job Start Date Occupation Not on file Not on file Not on file Travel End Travel History Travel Start No recent travel history available. as of this encounter Plan of Treatment Not on fileas of this encounter Procedures Comments Procedure Name Priority Date/Time Associated Diagnosis CT MISC EXTERNAL IMAGING Routine 10/23/2018 Diagnosis unknown 12:00 AM CRAYON SAWYER in this encounter Results * CT MISC EXTERNAL IMAGING (10/23/2018 12:00 AM CRAYON SAWYER) Narrative Performed At This order has been auto finalized and does not contain a result. in this encounter Visit Diagnoses Diagnosis Diagnosis unknown Other unknown and unspecified cause of morbidity or mortality in this encounter
--- OUTSIDE RECORDS SUMMARY | 2019-01-09 15:17 | XMS REPORT | Continuity of Care Document ---
Author Author [facility] Organization [facility] Address Unknown Phone Unavailable Allergies Active Description Code Type Severity Reaction Onset Reported/Identified Relationship to Patient Clinical Status Yes No Known Drug Allergies [id number] Drug Allergy Unknown N/A 11/13/2012 Medications There [...] JEFRY DUFF DO Ot 706.2 11/12/2015 DUFFJEFRY BATEMNA DO Ot V72.63 11/12/2015 DUFFJERFY BATEMAN DO Ot V72.81 11/12/2015 DUFFJEFRY BATEMAN DO Ot V72.84 11/12/2015 DUFFJEFRY BATEMAN DO Ot V74.8 11/12/2015 SADNRINE YOUSSEF, AUGUSTINA Colon Ot 185 11/12/2015 SANDRINE [...] EXAMINATION 09/01/2018 JEFRY DUFF DO Ot V72.81 [id number] CARDIOVASCULAR 09/01/2018 JEFRY DUFF DO Ot V72.84 [...] EXAMINATION 09/15/2018 JEFRY DUFF DO Ot V72.81 [id number] CARDIOVASCULAR 09/15/2018 JEFRY DUFF DO Ot V72.84 [...] EXAMINATION 09/19/2018 JEFRY DUFF DO Ot V72.81 [id number] CARDIOVASCULAR 09/19/2018 JEFRY DUFF DO Ot V72.84 [...] EXAMINATION 09/21/2018 JEFRY DUFF DO Ot V72.81 [id number] CARDIOVASCULAR 09/21/2018 JEFRY DUFF DO Ot V72.84 [...] Ot Z96.0 PRESENCE OF UROGENITAL IMPLANTS 11/30/2018 SAJAN VO DOA Kashif Ot Z98.890 OTHER SPECIFIED POSTPROCEDURAL STATES 12/07/2018 TC ESPANA MD Ot Z01.818 ENCOUNTER FOR OTHER PREPROCEDURAL EXAMIN 12/08/2018 TC ESPANA MD Ot Z01.818 ENCOUNTER FOR OTHER PREPROCEDURAL EXAMIN 12/11/2018 TC ESPANA MD Ot C61 MALIGNANT NEOPLASM OF PROSTATE 12/11/2018 TC ESPANA MD Ot 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 12/11/2018 TC ESPANA MD Ot G47.33 OBSTRUCTIVE SLEEP APNEA (ADULT) (PEDIATR 12/11/2018 TC ESPANA MD Ot I10 ESSENTIAL (PRIMARY) HYPERTENSION 12/11/2018 TC ESPANA MD Ot Z11.2 ENCOUNTER FOR SCREENING FOR OTHER BACTER 12/11/2018 TC ESPANA MD Ot Z79.899 OTHER TEST DECK 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 (CURRENT) DRUG THERAPY 12/11/2018 TC ESPANA MD Ot Z82.49 FAMILY HX OF ISCHEM HEART DIS AND OTH DI 12/11/2018 TC ESPANA MD Ot Z87.891 PERSONAL HISTORY OF NICOTINE DEPENDENCE 12/11/2018 TC ESPANA MD Ot Z92.3 PERSONAL HISTORY OF IRRADIATION 12/12/2018 TC ESPANA MD Ot C61 MALIGNANT NEOPLASM OF PROSTATE 12/12/2018 TC ESPANA MD Ot 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 12/12/2018 TC ESPANA MD Ot G47.33 OBSTRUCTIVE SLEEP APNEA (ADULT) (PEDIATR 12/12/2018 TC ESPANA MD Ot I10 ESSENTIAL (PRIMARY) HYPERTENSION 12/12/2018 TC ESPANA MD Ot Z11.2 ENCOUNTER FOR SCREENING FOR OTHER BACTER 12/12/2018 TC ESPANA MD Ot Z79.899 OTHER TEST 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 SUPERVISOR (CURRENT) DRUG THERAPY 12/12/2018 TC ESPANA MD Ot Z82.49 FAMILY HX OF ISCHEM HEART DIS AND OTH DI 12/12/2018 TC ESPANA MD Ot Z87.891 PERSONAL HISTORY OF NICOTINE DEPENDENCE 12/12/2018 TC ESPANA MD Ot Z92.3 PERSONAL HISTORY OF IRRADIATION 12/13/2018 TC ESPANA MD Ot Z01.818 ENCOUNTER FOR OTHER PREPROCEDURAL EXAMIN 12/15/2018 TC ESPANA MD Ot C61 MALIGNANT NEOPLASM OF PROSTATE 12/15/2018 TC ESPANA MD Ot 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 12/15/2018 TC ESPANA MD Ot G47.33 OBSTRUCTIVE SLEEP APNEA (ADULT) (PEDIATR 12/15/2018 TC ESPANA MD, Ot I10 ESSENTIAL (PRIMARY) HYPERTENSION 12/15/2018 TC ESPANA MD Ot Z11.2 ENCOUNTER FOR SCREENING FOR OTHER BACTER 12/15/2018 TC ESPANA MD, Ot Z79.899 OTHER TEST 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 (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) DRUG THERAPY 12/15/2018 TC ESPANA MD Ot Z82.49 FAMILY HX OF ISCHEM HEART DIS AND OTH DI 12/15/2018 TC ESPANA MD, Ot Z87.891 PERSONAL HISTORY OF NICOTINE DEPENDENCE 12/15/2018 TC ESPANA MD Ot Z92.3 PERSONAL HISTORY OF IRRADIATION 12/22/2018 BRIAN COFFEY MD Ot C61 MALIGNANT NEOPLASM OF PROSTATE 12/22/2018 BRIAN COFFEY MD Ot 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 12/22/2018 BRIAN COFFEY MD Ot 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 12/22/2018 BRIAN COFFEY MD Ot 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 12/22/2018 BRIAN COFFEY MD Ot E66.9 OBESITY, UNSPECIFIED 12/22/2018 BRIAN COFFEY MD Ot I10 ESSENTIAL (PRIMARY) HYPERTENSION 12/22/2018 BRIAN COFFEY MD Ot Z68.31 BODY MASS INDEX (BMI) 31.0-31.9, ADULT 12/22/2018 BRIAN COFFEY MD Ot Z79.899 OTHER HALF-WAY (CURRENT) DRUG THERAPY 12/22/2018 BRIAN COFFEY MD, Ot Z87.891 PERSONAL HISTORY OF NICOTINE DEPENDENCE 12/27/2018 BRIAN COFFEY MD, Ot C61 MALIGNANT NEOPLASM OF PROSTATE 12/27/2018 BRIAN COFFEY MD, Ot 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 12/27/2018 BRIAN COFFEY MD, Ot 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 12/27/2018 BRIAN COFFEY MD, Ot 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 12/27/2018 BRIAN COFFEY MD, Ot E66.9 OBESITY, UNSPECIFIED 12/27/2018 BRIAN COFFEY MD, Ot I10 ESSENTIAL (PRIMARY) HYPERTENSION 12/27/2018 BRIAN COFFEY MD, Ot Z68.31 BODY MASS INDEX (BMI) 31.0-31.9, ADULT 12/27/2018 BRIAN COFFEY MD, Ot Z79.899 OTHER HALF-WAY (CURRENT) DRUG THERAPY 12/27/2018 BRIAN COFFEY MD, Ot Z87.891 PERSONAL HISTORY OF NICOTINE DEPENDENCE Procedures Code Description Performed By Performed On [id number] INSPECTION OF GALLBLADDER , PERCUTANEOUS 09/19/2018 [id number] RESECTION OF GALLBLADDER, OPEN APPROACH 09/19/2018 [id number] ROBOTIC ASSISTED PROCEDURE OF TRUNK, PER 09/19/2018 [...] culture - 09/15/18 00:17 Bacterial blood culture [facility] Blood lactic acid measurement (moles/volume) - 09/15/18 00:27 Blood lactic acid measurement (moles/volume) 1.51 mmol/L 0.50-2.00 Bacterial blood culture - 09/15/18 01:17 Bacterial blood culture [facility] Complete blood count (CBC) with [...] NRG Blood erythrocyte morphology finding identification NORMAL [facility] Comprehensive metabolic panel - 09/20/18 03:55 Serum [...] - 09/21/18 22:20 Lipase 27 U/L 8-78 Methicillin resistant Staphylococcus aureus (MRSA) screening culture - 11:07 Methicillin resistant Staphylococcus aureus (MRSA) screening culture NEG [facility] Comprehensive metabolic panel - 01/08/19 17:24 Serum or plasma sodium measurement (moles/volume) 136 mmol/L 135-145 Serum or plasma potassium measurement (moles/volume) 3.8 mmol/L 3.6-5.0 Serum or plasma chloride measurement (moles/volume) 100 mmol/L 98-107 Carbon dioxide 24 mmol/L 21-32 Serum or plasma anion gap determination (moles/volume) 12 mmol/L 5-14 Serum or plasma urea nitrogen measurement (mass/volume) 17 mg/dL 7-18 Serum or plasma creatinine measurement (mass/volume) 1.13 mg/dL 0.60-1.30 Serum or plasma urea nitrogen/creatinine mass ratio 15 NR Serum or plasma creatinine measurement with calculation of estimated glomerular filtration rate > [facility] Serum or plasma glucose measurement (mass/volume) 167 mg/dL 70-105 Serum or plasma calcium measurement (mass/volume) 9.2 mg/dL 8.5-10.1 Serum or plasma total bilirubin measurement (mass/volume) 0.2 mg/dL 0.1-1.0 Serum or plasma alkaline phosphatase measurement (enzymatic activity/volume) 77 U/L 40-136 Serum or plasma aspartate aminotransferase measurement (enzymatic activity/ volume) 19 U/L 5-34 Serum or plasma alanine aminotransferase measurement (enzymatic activity/volume ) 11 U/L 0-55 Serum or plasma protein measurement (mass/volume) 7.0 g/dL 6.4-8.2 Serum or plasma albumin measurement (mass/volume) 3.2 g/dL 3.2-4.5 CALCIUM CORRECTED 9.8 mg/dL 8.5-10.1 Complete blood count (CBC) with automated white blood cell (WBC) differential - 01/08/19 17:24 Blood leukocytes automated count (number/volume) 10.8 10*3/uL 4.3-11.0 Blood erythrocytes automated count (number/volume) 4.43 10*6/uL 4.35-5.85 Venous blood hemoglobin measurement (mass/volume) 12.1 g/dL 13.3-17.7 Blood hematocrit (volume fraction) 37 % 40-54 Automated erythrocyte mean corpuscular volume 83 [foz_us] 80-99 Automated erythrocyte mean corpuscular hemoglobin (mass per erythrocyte) 27 pg 25-34 Automated erythrocyte mean corpuscular hemoglobin concentration measurement ( mass/volume) 33 g/dL 32-36 Automated erythrocyte distribution width ratio 16.8 % 10.0-14.5 Automated blood platelet count (count/volume) 564 10*3/uL 130-400 Automated blood platelet mean volume measurement 8.4 [foz_us] 7.4-10.4 Automated blood neutrophils/100 leukocytes 74 % 42-75 Automated blood lymphocytes/100 leukocytes 9 % 12-44 Blood monocytes/100 leukocytes 16 % 0-12 Automated blood eosinophils/100 leukocytes 0 % 0-10 Automated blood basophils/100 leukocytes 1 % 0-10 Blood neutrophils automated count (number/volume) 7.9 10*3 1.8-7.8 Blood lymphocytes automated count (number/volume) 0.9 10*3 1.0-4.0 Blood monocytes automated count (number/volume) 1.8 10*3 0.0-1.0 Automated eosinophil count 0.0 10*3/uL 0.0-0.3 Automated blood basophil count (count/volume) 0.1 10*3/uL 0.0-0.1 Fibrin D-dimer FEU measurement in platelet poor plasma (mass/volume) - 17:24 Fibrin D-dimer FEU measurement in platelet poor plasma (mass/volume) 6.65 ug/mL 0.00-0.49 Encounters ACCT No. Visit Date/Time Discharge Status Pt. Type Provider Facility Loc./Unit Complaint [id number] 01/03/2019 08:42:00 01/03/2019 23:59:59 CLS Outpatient BRIAN COFFEY MD [facility] ONC [id number] 12/11/2018 10:47:00 12/11/2018 15:15:00 DIS Outpatient TC ESPANA MD [facility] SDC PROSTATE CA [id number] 12/07/2018 05:39:00 12/07/2018 14:25:00 DIS Outpatient TC ESPANA MD [facility] PREOP PROSTATE CANCER [id number] 11/14/2018 06:48:00 11/14/2018 09:10:00 DIS Outpatient JEANMARIE TAVARES MD [facility] ENDO SCREENING, ADENOCARCINOMA OF ?PRIMARY [id number] 11/09/2018 06:23:00 11/09/2018 10:43:00 DIS Outpatient JEANMARIE TAVARES MD [facility] PREOP COLONOSCOPY/EGD [id number] 09/21/2018 20:57:00 09/22/2018 01:35:00 DIS Emergency TAVO ETIENNE VILLALOBOS [facility] ER POST GALL BLADDER SURGERY COMPLICATIONS [id number] 09/19/2018 09:01:00 09/21/2018 11:33:00 DIS Inpatient TC ESPANA MD [facility] 4TH CHOLELITHIASIS [id number] 09/18/2018 10:38:00 09/18/2018 10:54:00 DIS Outpatient TC ESPANA MD [facility] PREOP CHLELITHIASIS [id number] 09/14/2018 21:34:00 09/15/2018 18:00:00 DIS Outpatient IRLANDA UMAÑA MD [facility] 4TH CHEST PAIN,N/V,METS PROSTATE CA [id number] 09/04/2018 12:01:00 09/04/2018 23:59:59 CLS Outpatient GERMAN GARZON DO [facility] RAD CA PROSTATE, HEMATURIA [id number] 11/12/2015 13:52:00 11/12/2015 23:59:59 CLS Outpatient RYANN DOGERMAN [facility] RAD LYMPHODEMA [id number] 10/16/2015 09:18:00 10/16/2015 23:59:59 CLS Outpatient AGRZON DOGERMAN [facility] RAD EDEMA LEFT CALF AND FOOT [id number] 09/09/2015 09:16:00 09/09/2015 23:59:59 CLS Outpatient GARZON GERMAN [facility] RAD DYSPNEA,CLAUDICATION [id number] 09/05/2015 11:04:00 09/05/2015 23:59:59 CLS Outpatient GARZON DOGERMAN [facility] RAD DYSPNEA, CLAUDICATION , SYMPTOM [id number] 07/22/2015 14:20:00 07/22/2015 23:59:59 CLS Outpatient RYANN VILLALOBOS GERMAN Wil [facility] CARD CHEST PAIN [id number] 03/10/2015 00:08:00 03/10/2015 23:59:59 CLS Preadmit DANIELA FELIPE MD [facility] ONC [id number] 12/09/2014 09:50:00 03/09/2015 00:01:00 DIS Outpatient DANIELA FELIPE MD [facility] ONC [id number] 10/23/2014 12:05:00 10/23/2014 23:59:59 CLS Outpatient AUGUSTINA DELUCA MD [facility] CARD PROSTATE CANCER [id number] 01/24/2014 06:15:00 01/24/2014 11:42:00 DIS Outpatient JEFRY DUFF DO [facility] SDC CYST ON BACK [id number] 01/23/2014 09:44:00 01/23/2014 23:59:59 CLS Outpatient JEFRY DUFF DO [facility] PREOP CYST ON BACK [id number] 06/12/2013 07:48:00 06/12/2013 09:55:00 DIS Outpatient JEANMARIE TAVARES MD [facility] SDC SCREENING [id number] 06/07/2013 07:15:00 06/07/2013 23:59:59 CLS Outpatient JEANMARIE TAVARES MD [facility] PREOP SCREENING [id number] 05/22/2013 08:14:00 05/22/2013 23:59:59 CLS Outpatient GERMAN GARZON DO [facility] RAD LT LOWER QUAD PAIN [id number] 05/21/2013 09:04:00 05/21/2013 23:59:59 CLS Outpatient DANIELA FELIPE MD [facility] ONC [id number] 01/09/2019 14:30:00 ACT Emergency MAURA SPAIN MD [facility] ER PULMONARY EMBOLISM [id number] 01/09/2019 12:15:00 ACT Outpatient GERMAN GARZON DO [facility] RAD ELEVATED D-DIMER [id number] 01/08/2019 16:33:00 ACT Outpatient GERMAN GARZON DO [facility] RAD CHEST PAIN [id number] 01/17/2013 16:18:00 Document Registration [id number] 12/22/2012 08:48:00 Document Registration [id number] 11/24/2012 06:00:00 Document Registration [id number] 11/13/2012 15:29:00 Document Registration [id number] 09/12/2012 08:50:00 Document Registration [id number] 08/25/2012 11:16:00 Document Registration
--- OUTSIDE RECORDS SUMMARY | 2019-01-09 15:17 | XMS REPORT | Encounter Summary ---
Author Author [facility] Organization [facility] Address Unknown Phone Unavailable Care Team Providers Care Pari Mutual Ticket Checker Name Role Phone PCP Unavailable Encounter Details Care Team Description Date Type Department 10/13/2018 Hospital [facility] Radiology 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 in this encounter Visit Diagnoses Diagnosis Diagnosis unknown Other unknown and unspecified cause of morbidity or mortality in this encounter
--- OUTSIDE RECORDS SUMMARY | 2019-01-09 15:17 | XMS REPORT | Clinical Summary ---
Author Author [facility] Organization [facility] Address Unknown Phone Unavailable Care Team Providers Care Product Marketing Director Name Role Phone PCP Unavailable Source Comments Some departments are not documenting in the electronic medical record. If you do not see the information that you expected, contact Release of Information in the Health Information Management department at [phone] for further assistance in locating additional records.[facility] Allergies Not on File Medications Not on file Active Problems Not on file Encounters Care Team Description Date Type Specialty 10/23/2018 Hospital Radiology Encounter 10/13/2018 Hospital Radiology Encounter from Last 3 Months Social History Date Tobacco Use Types Packs/Day Years Used Never Assessed Sex Assigned at Date Recorded Not on file Industry Job Start Date Occupation Not on file Not on file Not on file Travel End Travel History Travel Start No recent travel history available. Last Filed Vital Signs Not on file Plan of Treatment Health Maintenance Due Date Last Done Comments PHYSICAL (COMPREHENSIVE) 1947 EXAM DTAP/TDAP VACCINES (1 - 1958 Tdap) SHINGLES RECOMBINANT 1990 VACCINE (1 of 2) PNEUMONIA (PCV13/PPSV23) 2005 VACCINES (1 of 2 - PCV13) INFLUENZA VACCINE 06/07/2019 Procedures Comments Procedure Name Priority Date/Time Associated Diagnosis CT MISC EXTERNAL IMAGING Routine 10/23/2018 Diagnosis unknown 12:00 AM ICE CREAM DISPENSER NM PET/CT EXTERNAL Routine 10/13/2018 Diagnosis unknown IMAGING 12:00 AM ICE CREAM DISPENSER from Last 3 Months Results * CT MISC EXTERNAL IMAGING (10/23/2018 12:00 AM ICE CREAM DISPENSER) Narrative Performed At This order has been auto finalized and does not contain a result. * NM PET/CT EXTERNAL IMAGING (10/13/2018 12:00 AM ICE CREAM DISPENSER) Narrative Performed At This order has been auto finalized and does not contain a result. from Last 3 Months Advance Directives Patient has advance care planning documents on file. For more information, please contact: [facility] [address] [place] [address]
[2019-01-09 16:06] LABS: BASOPHILS # (AUTO) 0.1 10^3/uL (0.0-0.1); BASOPHILS % (AUTO) 1 % (0-10); EOSINOPHILS # (AUTO) 0.1 10^3/uL (0.0-0.3); EOSINOPHILS % (AUTO) 1 % (0-10); HEMATOCRIT 32 % (40-54); HEMOGLOBIN 10.4 G/DL (13.3-17.7); LYMPHOCYTES % (AUTO) 10 % (12-44); MEAN CORPUSCULAR HEMOGLOBIN 27 PG (25-34); MEAN CORPUSCULAR HGB CONC 32 G/DL (32-36); MEAN CORPUSCULAR VOLUME 84 FL (80-99); MEAN PLATELET VOLUME 8.4 FL (7.4-10.4); MONOCYTES # (AUTO) 1.7 X 10^3 (0.0-1.0); MONOCYTES % (AUTO) 16 % (0-12); NEUTROPHILS # (AUTO) 7.6 X 10^3 (1.8-7.8); NEUTROPHILS % (AUTO) 73 % (42-75); PLATELET COUNT 445 10^3/uL (130-400); WHITE BLOOD COUNT 10.4 10^3/uL (4.3-11.0)
[2019-01-09 16:28] LABS: ALANINE AMINOTRANSFERASE 9 U/L (0-55); ALBUMIN 2.9 GM/DL (3.2-4.5); ALKALINE PHOSPHATASE 78 U/L (40-136); BILIRUBIN,TOTAL 0.3 MG/DL (0.1-1.0); BUN/CREATININE RATIO 19; CALCIUM 8.6 MG/DL (8.5-10.1); CARBON DIOXIDE 26 MMOL/L (21-32); CHLORIDE 99 MMOL/L (98-107); CREATININE SERUM 0.83 MG/DL (0.60-1.30); GFR ESTIMATED > 60; GLUCOSE 113 MG/DL (70-105); POTASSIUM 3.4 MMOL/L (3.6-5.0); SODIUM 137 MMOL/L (135-145); TOTAL PROTEIN 6.3 GM/DL (6.4-8.2)
--- OUTSIDE RECORDS SUMMARY | 2019-01-09 17:46 | XMS REPORT | Encounter Summary ---
Author Author [facility] Organization [facility] Address Unknown Phone Unavailable Care Team Providers Care Bacteriologist Pharmaceutical Name Role Phone PCP Unavailable Encounter Details Care Team Description Date Type Department 10/23/2018 Hospital [facility] Radiology [facility] Hospital [address] [place] [address] Social History Date Tobacco Use Types Packs/Day [...] IMAGING Routine 10/23/2018 Diagnosis unknown 12:00 AM EXCHANGE ARCHITECT in this encounter Results * CT MISC EXTERNAL IMAGING (10/23/2018 12:00 AM EXCHANGE ARCHITECT) Narrative Performed At This order has been auto finalized and does not contain a result. in this encounter Visit Diagnoses Diagnosis Diagnosis unknown Other unknown and unspecified cause of morbidity or mortality in this encounter
--- OUTSIDE RECORDS SUMMARY | 2019-01-09 17:46 | XMS REPORT | Encounter Summary ---
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 in this encounter Visit Diagnoses Diagnosis Diagnosis unknown Other unknown and unspecified cause of morbidity or mortality in this encounter
--- OUTSIDE RECORDS SUMMARY | 2019-01-09 17:46 | XMS REPORT | Clinical Summary ---
Author Author [facility] Organization [facility] Address Unknown Phone Unavailable Care Team Providers Care Tape Recorder Mechanic Name Role Phone PCP Unavailable Source Comments Some departments are not documenting in the electronic medical record. If you do not see the information that you expected, contact Release of Information in the Health Information Management department at [phone] for further assistance in locating additional records.[facility] Allergies Not on File Medications Not on [...] IMAGING Routine 10/23/2018 Diagnosis unknown 12:00 AM STATION CHIEF NM PET/CT EXTERNAL Routine 10/13/2018 Diagnosis unknown IMAGING 12:00 AM STATION CHIEF from Last 3 Months Results * CT MISC EXTERNAL IMAGING (10/23/2018 12:00 AM STATION CHIEF) Narrative Performed At This order has been auto finalized and does not contain a result. * NM PET/CT EXTERNAL IMAGING (10/13/2018 12:00 AM STATION CHIEF) Narrative Performed At This order has been auto finalized and does not contain a result. from Last 3 Months Advance Directives Patient has advance care planning documents on file. For more information, please contact: [facility] [address] [place] [address]
--- OUTSIDE RECORDS SUMMARY | 2019-01-09 17:47 | XMS REPORT | Continuity of Care Document ---
Author Author [facility] Organization [facility] Address Unknown Phone Unavailable Allergies Active Description Code Type Severity Reaction Onset Reported/Identified Relationship to Patient Clinical Status Yes No Known Drug Allergies [id number] Drug Allergy Unknown N/A 11/13/2012 Medications There [...] MD Ot 562.10 02/04/2015 MATTEO YOUSSEF, DANIELA Pnen Ot 185 03/09/2015 MATTEO YOUSSEF, DANIELA [place] [...] EXAMINATION 09/01/2018 JEFRY DUFF DO Ot V72.81 [id number] CARDIOVASCULAR 09/01/2018 JEFRY DUFF DO Ot V72.84 [...] EXAMINATION 09/15/2018 JEFRY DUFF DO Ot V72.81 [id number] CARDIOVASCULAR 09/15/2018 JEFRY DUFF DO Ot V72.84 [...] EXAMINATION 09/19/2018 JEFRY DUFF DO Ot V72.81 [id number]-[id number]-[id number] CARDIOVASCULAR 09/19/2018 JEFRY DUFF DO Ot V72.84 EXAM PRE-OPERATIVE NOS 09/19/2018 DUFFJEFRY BATEMAN DO Ot V74.8 SCREEN-BACTERIAL DIS NEC 09/19/2018 SANDRINE YOUSSEF, AUGUSTINA Colon Ot 185 MALIGN NEOPL PROSTATE 09/19/2018 SANDRINE YOUSSEF, AUGUSTINA Colon Ot 562.10 DIVERTICULOSIS COLON (W/O MENT OF HEMORR 09/19/2018 MATTEO YOUSSEF, DANIELA Pnen Ot 185 MALIGN NEOPL PROSTATE 09/19/2018 GERMAN [...] EXAMINATION 09/21/2018 JEFRY DUFF DO Ot V72.81 [id number] CARDIOVASCULAR 09/21/2018 JEFRY DUFF DO Ot V72.84 [...] 12/11/2018 TC ESPANA MD Ot Z79.899 OTHER COMMUNICATIONS CONSULTANT (CURRENT) DRUG THERAPY 12/11/2018 TC ESPANA MD [...] 12/12/2018 TC ESPANA MD Ot Z79.899 OTHER COMMUNICATIONS CONSULTANT (CURRENT) DRUG THERAPY 12/12/2018 TC ESPANA MD [...] 12/15/2018 TC ESPANA MD, Ot Z79.899 OTHER COMMUNICATIONS CONSULTANT (CURRENT) DRUG THERAPY 12/15/2018 TC ESPANA MD [...] 12/22/2018 BRIAN COFFEY MD Ot Z79.899 OTHER SHELTER (CURRENT) DRUG THERAPY 12/22/2018 BRIAN COFFEY MD, [...] 12/27/2018 BRIAN COFFEY MD, Ot Z79.899 OTHER SHELTER (CURRENT) DRUG THERAPY 12/27/2018 BRIAN COFFEY MD, Ot Z87.891 PERSONAL HISTORY OF NICOTINE DEPENDENCE Procedures Code Description Performed By Performed On [id number] INSPECTION OF GALLBLADDER , PERCUTANEOUS 09/19/2018 [id number] RESECTION OF GALLBLADDER, OPEN APPROACH 09/19/2018 [id number] ROBOTIC ASSISTED PROCEDURE OF TRUNK, PER 09/19/2018 [...] culture - 09/15/18 00:17 Bacterial blood culture [facility] Blood lactic acid measurement (moles/volume) - 09/15/18 00:27 Blood lactic acid measurement (moles/volume) 1.51 mmol/L 0.50-2.00 Bacterial blood culture - 09/15/18 01:17 Bacterial blood culture [facility] Complete blood count (CBC) with [...] NRG Blood erythrocyte morphology finding identification [facility]ORMAL [facility] Comprehensive metabolic panel - 09/20/18 03:55 Serum [...] resistant Staphylococcus aureus (MRSA) screening culture NEG [facility] Comprehensive metabolic panel - 01/08/19 17:24 Serum [...] calculation of estimated glomerular filtration rate > [facility] Serum or plasma glucose measurement (mass/volume) 167 [...] platelet poor plasma (mass/volume) 6.65 ug/mL 0.00-0.49 Bacterial blood culture - 01/08/19 17:24 Bacterial blood culture NG NR Bacterial blood culture - 01/08/19 17:31 Bacterial blood culture [facility] PT panel in platelet poor plasma by coagulation assay - 01/09/19 14:38 Prothrombin time (PT) in platelet poor plasma by coagulation assay 14.6 s 12.2-14.7 INR in platelet poor plasma or blood by coagulation assay 1.1 0.8-1.4 Activated partial thromboplastin time (aPTT) in platelet poor plasma bycoagulation assay - 01/09/19 14:38 Activated partial thromboplastin time (aPTT) in platelet poor plasma bycoagulation assay 36 s 24-35 Complete blood count (CBC) with automated white blood cell (WBC) differential - 01/09/19 15:50 Blood leukocytes automated count (number/volume) 10.4 10*3/uL 4.3-11.0 Blood erythrocytes automated count (number/volume) 3.83 10*6/uL 4.35-5.85 Venous blood hemoglobin measurement (mass/volume) 10.4 g/dL 13.3-17.7 Blood hematocrit (volume fraction) 32 % 40-54 Automated erythrocyte mean corpuscular volume 84 [foz_us] 80-99 Automated erythrocyte mean corpuscular hemoglobin (mass per erythrocyte) 27 pg 25-34 Automated erythrocyte mean corpuscular hemoglobin concentration measurement ( mass/volume) 32 g/dL 32-36 Automated erythrocyte distribution width ratio 17.0 % 10.0-14.5 Automated blood platelet count (count/volume) 445 10*3/uL 130-400 Automated blood platelet mean volume measurement 8.4 [foz_us] 7.4-10.4 Automated blood neutrophils/100 leukocytes 73 % 42-75 Automated blood lymphocytes/100 leukocytes 10 % 12-44 Blood monocytes/100 leukocytes 16 % 0-12 Automated blood eosinophils/100 leukocytes 1 % 0-10 Automated blood basophils/100 leukocytes 1 % 0-10 Blood neutrophils automated count (number/volume) 7.6 10*3 1.8-7.8 Blood lymphocytes automated count (number/volume) 1.0 10*3 1.0-4.0 Blood monocytes automated count (number/volume) 1.7 10*3 0.0-1.0 Automated eosinophil count 0.1 10*3/uL 0.0-0.3 Automated blood basophil count (count/volume) 0.1 10*3/uL 0.0-0.1 Blood lactic acid measurement (moles/volume) - 01/09/19 15:50 Blood lactic acid measurement (moles/volume) 0.79 mmol/L 0.50-2.00 Comprehensive metabolic panel - 01/09/19 15:50 Serum or plasma sodium measurement (moles/volume) 137 mmol/L 135-145 Serum or plasma potassium measurement (moles/volume) 3.4 mmol/L 3.6-5.0 Serum or plasma chloride measurement (moles/volume) 99 mmol/L 98-107 Carbon dioxide 26 mmol/L 21-32 Serum or plasma anion gap determination (moles/volume) 12 mmol/L 5-14 Serum or plasma urea nitrogen measurement (mass/volume) 16 mg/dL 7-18 Serum or plasma creatinine measurement (mass/volume) 0.83 mg/dL 0.60-1.30 Serum or plasma urea nitrogen/creatinine mass ratio 19 NRG Serum or plasma creatinine measurement with calculation of estimated glomerular filtration rate > NRG Serum or plasma glucose measurement (mass/volume) 113 mg/dL 70-105 Serum or plasma calcium measurement (mass/volume) 8.6 mg/dL 8.5-10.1 Serum or plasma total bilirubin measurement (mass/volume) 0.3 mg/dL 0.1-1.0 Serum or plasma alkaline phosphatase measurement (enzymatic activity/volume) 78 U/L 40-136 Serum or plasma aspartate aminotransferase measurement (enzymatic activity/ volume) 14 U/L 5-34 Serum or plasma alanine aminotransferase measurement (enzymatic activity/volume ) 9 U/L 0-55 Serum or plasma protein measurement (mass/volume) 6.3 g/dL 6.4-8.2 Serum or plasma albumin measurement (mass/volume) 2.9 g/dL 3.2-4.5 CALCIUM CORRECTED 9.5 mg/dL 8.5-10.1 Encounters ACCT No. Visit Date/Time Discharge Status Pt. Type Provider Facility Loc./Unit Complaint [id number] 01/03/2019 08:42:00 01/03/2019 23:59:59 CLS Outpatient BRIAN COFFEY MD [facility] [id number] 12/11/2018 10:47:00 12/11/2018 15:15:00 DIS Outpatient TC ESPANA MD [facility] PROSTATE CA [id number] 12/07/2018 05:39:00 12/07/2018 14:25:00 DIS Outpatient TC ESPANA MD [facility] PREOP PROSTATE CANCER [id number] 11/14/2018 06:48:00 11/14/2018 09:10:00 DIS Outpatient JEANMARIE TAVARES MD [facility] ENDO SCREENING, ADENOCARCINOMA OF ?PRIMARY [id number] 11/09/2018 06:23:00 11/09/2018 10:43:00 DIS Outpatient JEANMARIE TAVARES MD [facility] PREOP COLONOSCOPY/EGD [id number] 09/21/2018 20:57:00 09/22/2018 01:35:00 DIS Emergency ETIENNE VO DO [facility] ER POST GALL BLADDER SURGERY COMPLICATIONS [id number] 09/19/2018 09:01:00 09/21/2018 11:33:00 DIS Inpatient TC ESPANA MD [facility] 4TH CHOLELITHIASIS [id number] 09/18/2018 10:38:00 09/18/2018 10:54:00 DIS Outpatient TC ESPANA MD [facility] PREOP CHLELITHIASIS [id number] 09/14/2018 21:34:00 09/15/2018 18:00:00 DIS Outpatient IRLANDA UMAÑA MD [facility] 4TH CHEST PAIN,N/V,METS PROSTATE CA [id number] 09/04/2018 12:01:00 09/04/2018 23:59:59 CLS Outpatient GERMAN GARZON DO [facility] RAD CA PROSTATE, HEMATURIA [id number] 11/12/2015 13:52:00 11/12/2015 23:59:59 CLS Outpatient GERMAN GARZON DO [facility] RAD LYMPHODEMA [id number] 10/16/2015 09:18:00 10/16/2015 23:59:59 CLS Outpatient GERMAN GARZON DO [facility] RAD EDEMA LEFT CALF AND FOOT [id number] 09/09/2015 09:16:00 09/09/2015 23:59:59 CLS Outpatient GERMAN GARZON DO [facility] RAD DYSPNEA,CLAUDICATION [id number] 09/05/2015 11:04:00 09/05/2015 23:59:59 CLS Outpatient GERMAN GARZON DO [facility] RAD DYSPNEA, CLAUDICATION , SYMPTOM [id number] 07/22/2015 14:20:00 07/22/2015 23:59:59 CLS Outpatient GERMAN GARZON DO [facility] CARD CHEST PAIN [id number] 03/10/2015 00:08:00 03/10/2015 23:59:59 CLS Preadmit DANIELA FELIPE MD [facility] ONC [id number] 12/09/2014 09:50:00 03/09/2015 00:01:00 DIS Outpatient DANIELA FELIPE MD [facility] ONC [id number] 10/23/2014 12:05:00 10/23/2014 23:59:59 CLS Outpatient AUGUSTINA DELUCA MD [facility] CARD PROSTATE CANCER [id number] 01/24/2014 06:15:00 01/24/2014 11:42:00 DIS Outpatient JEFRY DUFF DO [facility] SDC CYST ON BACK [id number] 01/23/2014 09:44:00 01/23/2014 23:59:59 CLS Outpatient JEFRY DUFF DO [facility] PREOP CYST ON BACK [id number] 06/12/2013 07:48:00 06/12/2013 09:55:00 DIS Outpatient JEANMARIE TAVARES MD [facility] SDC SCREENING [id number] 06/07/2013 07:15:00 06/07/2013 23:59:59 CLS Outpatient JEANMARIE TAVARES MD [facility] PREOP SCREENING [id number] 05/22/2013 08:14:00 05/22/2013 23:59:59 CLS Outpatient GERMAN GARZON DO [facility] RAD LT LOWER QUAD PAIN [id number] 05/21/2013 09:04:00 05/21/2013 23:59:59 CLS Outpatient MATTEO YOUSSEF, DANIELA [place] [facility] ONC [id number] 01/09/2019 15:28:00 ACT Inpatient CHASIDY YOUSSEF, IRLANDA [place] [facility] 4TH SADDLE EMBOLISM,METASTATIC CA,BILAT PNUEMONIA [id number] 01/09/2019 12:15:00 ACT Outpatient GERMAN GARZON DO [facility] RAD ELEVATED D-DIMER [id number] 01/08/2019 16:33:00 ACT Outpatient GERMAN GARZON DO [facility] RAD CHEST PAIN [id number] 01/17/2013 16:18:00 Document Registration [id number] 12/22/2012 08:48:00 Document Registration [id number] 11/24/2012 06:00:00 Document Registration [id number] 11/13/2012 15:29:00 Document Registration [id number] 09/12/2012 08:50:00 Document Registration [id number] 08/25/2012 11:16:00 Document Registration
[2019-01-09 18:19] VITALS: BP 133/84
[2019-01-09] MEDS ORDERED: ONDANSETRON 4 MG/2 ML (SDV) Z0FRAN IV PRN (18:30)
[2019-01-09] MEDS ORDERED: CATHETER FLUSH 10 ML SYR IV PRN (18:30)
[2019-01-09] MEDS: NS IV 1000 ML 1,000 ML IV SCH (18:50)
[2019-01-09] MEDS: LEVOFLOXACIN 500 MG/D5W 100 ML (PRE-MIX) IV SCH (18:56)
[2019-01-09] MEDS ORDERED: HEParin 1000 UNIT/ML (10ML VIAL) FOR BOLUS IV SCH (19:00)
[2019-01-09 20:00] VITALS: BP 122/73
[2019-01-10] VITALS: BP 129/75
[2019-01-10 04:47] LABS: BASOPHILS # (AUTO) 0.1 10^3/uL (0.0-0.1); BASOPHILS % (AUTO) 1 % (0-10); EOSINOPHILS % (AUTO) 0 % (0-10); HEMATOCRIT 31 % (40-54); LYMPHOCYTES # (AUTO) 1.1 X 10^3 (1.0-4.0); LYMPHOCYTES % (AUTO) 10 % (12-44); MEAN CORPUSCULAR HEMOGLOBIN 27 PG (25-34); MEAN CORPUSCULAR HGB CONC 33 G/DL (32-36); MEAN CORPUSCULAR VOLUME 84 FL (80-99); MEAN PLATELET VOLUME 8.5 FL (7.4-10.4); MONOCYTES # (AUTO) 1.6 X 10^3 (0.0-1.0); MONOCYTES % (AUTO) 15 % (0-12); NEUTROPHILS # (AUTO) 7.6 X 10^3 (1.8-7.8); NEUTROPHILS % (AUTO) 74 % (42-75); PLATELET COUNT 364 10^3/uL (130-400); RED CELL DISTRIBUTION WIDTH 16.6 % (10.0-14.5); WHITE BLOOD COUNT 10.3 10^3/uL (4.3-11.0)
[2019-01-10 04:48] VITALS: BP 125/75
[2019-01-10 05:18] LABS: ALANINE AMINOTRANSFERASE 7 U/L (0-55); ALBUMIN 2.7 GM/DL (3.2-4.5); ALKALINE PHOSPHATASE 67 U/L (40-136); BILIRUBIN,TOTAL 0.3 MG/DL (0.1-1.0); BUN/CREATININE RATIO 18; CALCIUM 8.5 MG/DL (8.5-10.1); CARBON DIOXIDE 26 MMOL/L (21-32); CHLORIDE 100 MMOL/L (98-107); GFR ESTIMATED > 60; GLUCOSE 119 MG/DL (70-105); POTASSIUM 3.3 MMOL/L (3.6-5.0); SODIUM 135 MMOL/L (135-145); TOTAL PROTEIN 5.8 GM/DL (6.4-8.2)
[2019-01-10 08:00] VITALS: BP 136/79
--- NOTE | 2019-01-10 09:35 | History & Physical-Hospitalist ---
History of Present Illness HPI/Chief Complaint Chief Complaint: Chest pain and shortness of breath. HPI: This is a 78yoWM who presented to the ER after Dr. Morris sent him to the ER from CT scan revealing B/L saddle pulmonary emboli and aggressive spread of prostate cancer. Pt was assessed to be stable but hypoxic and needed Heparin drip initiated along with Dr. Naranjo consultation since that is his oncologist. Considering the profound amount of clot burden and the neoplastic source we will maintain on Heparin consult Dr. Carballo Cardiology and Dr. Palomares and will check echocardiogram and await for Dr. Naranjo's recommendations. I did restart home medications. I answered all the questions the Pt and family had. Pt appears to have very aggressive disease and poor prognosis overall. Source: patient Exam Limitations: no limitations Date Seen 01/10/19 Time Seen by a Provider: 09:50 Attending Physician Jaime Chahal MD PCP Crispin Morris DO Referring Physician Date of Admission Jan 09, 2019 at 15:28 Home Medications & Allergies Home Medications Reviewed patient Home Medication Reconciliation performed by pharmacy medication reconciliations pharmacy order entry technician and/or nursing. Patients Allergies have been reviewed. Allergies Allergies Coded Allergies No Known Drug Allergies (Unverified11/13/12) Past Ighfyql-Zawvoi-Fcfoar Hx Past Med/Social Hx: Reviewed Nursing Past Med/Soc Hx, Reviewed and Corrections made Patient Social History Marrital Status: Employed/Student: retired Alcohol Use: Denies Use Recreational Drug Use: No Smoking Status: Former Smoker Former Smoker, Quit: Sep 18, 1960 Type Used: Cigarettes 2nd Hand Smoke Exposure: No Recent Foreign Travel: No Contact w/other who traveled: No Recent Hopitalizations: No Recent Infectious Disease Expo: No Immunizations Up To Date Tetanus Booster (TDap): Unknown Pediatric: Yes Date of Pneumonia Vaccine: Sep 07, 2016 Date of Influenza Vaccine: Aug 07, 2018 Seasonal Allergies Seasonal Allergies: No Past Medical History Surgeries: Abdominal, Gallbladder, Orthopedic Currently Using CPAP: Yes Currently Using BIPAP: No Cardiac: Hypertension Reproductive: No Sexually Transmitted Disease: No HIV/AIDS: No Genitourinary: Prostate Problems Gastrointestinal: Diverticulosis Loss of Vision: Denies Hearing Impairment: Denies Cancer: Prostate Did You Recieve Any Treatments: Yes What Type of Treatment Did You: Radiation History of Blood Disorders: No Adverse Reaction to Blood Adams: No Family History Reviewed Nursing Family Hx Diabetes mellitus 19 MOTHER Kidney disease G8 BROTHER PANCREATIC CANCER G8 SISTER Heart Disease, CAD Over 55 Years Old, Diabetes Review of Systems Constitutional: see HPI, dizziness, malaise, weakness EENTM: no symptoms reported Respiratory: cough, dyspnea on exertion Cardiovascular: chest pain Gastrointestinal: no symptoms reported Genitourinary: no symptoms reported Musculoskeletal: back pain Skin: no symptoms reported Psychiatric/Neurological: No Symptoms Reported All Other Systems Reviewed Negative Unless Noted: Yes Physical Exam Physical Exam Vital Signs Vital Signs - First Documented 01/09/19 01/09/19 14:28 17:51 Temp 97.1 Pulse 104 Resp 15 B/P (MAP) 134/83 (100) Pulse Ox 93 O2 Delivery Room Air O2 Flow Rate 2.00 Capillary Refill : Less Than 3 SecondsLess Than 3 Seconds Height, Weight, BMI Height: 6'0.00" Weight: 208lbs. 0.0oz. 94.133810cj; 28.2 BMI Method:Stated General Appearance: No Apparent Distress, Chronically ill, Thin Eyes: Right Eye Normal Inspection, Right Eye PERRL HEENT: PERRL/EOMI, Normal ENT Inspection, Pharynx Normal, Moist Mucous Membranes Neck: Full Range of Motion, Normal Inspection, Non Tender Respiratory: Chest Non Tender, Lungs Clear, Normal Breath Sounds, No Accessory Muscle Use, No Respiratory Distress, Decreased Breath Sounds Cardiovascular: Regular Rate, Rhythm, No Edema, No Gallop, No JVD, No Murmur, Normal Peripheral Pulses Gastrointestinal: Normal Bowel Sounds, No Organomegaly, No Pulsatile Mass, Non Tender, Soft Back: Normal Inspection, No CVA Tenderness, No Vertebral Tenderness Extremity: Normal Capillary Refill, Normal Inspection, Normal Range of Motion, Non Tender, No Calf Tenderness, No Pedal Edema Neurologic/Psychiatric: Alert, Oriented x3, No Motor/Sensory Deficits, Depressed Affect Skin: Normal Color, Warm/Dry Lymphatic: No Adenopathy Results Results/Procedures Labs Laboratory Tests 01/09/19 15:50 01/10/19 04:40 Patient resulted labs reviewed. Assessment/Plan Admission Diagnosis Assessment: Acute saddle PE Pneumonia Prostate cancer with aggressive spread per CT scan results HTN Plan: Heparin drip Dr Naranjo, Dr Palomares, Dr Carballo consultations are appreciated ECHO Admission Status: Inpatient Order (span 2 midnights) Reason for Inpatient Admission: Saddle PE along with aggressive spread of prostate cancer needs 4 days of inpt Diagnosis/Problems Diagnosis/Problems (1) Saddle embolism of pulmonary artery Status: Acute Qualifiers: Chronicity: acute Acute cor pulmonale presence: without acute cor pulmonale Qualified Codes: I26.92 - Saddle embolus of pulmonary artery without acute cor pulmonale (2) Bilateral pneumonia Status: Acute Qualifiers: Pneumonia type: due to unspecified organism Lung location: unspecified part of lung Qualified Codes: J18.9 - Pneumonia, unspecified organism (3) prostate cancer Status: Chronic (4) Obstruction of left ureter Status: Chronic (5) Pleural effusion on left Status: Acute (6) DNR (do not resuscitate) Status: Chronic (7) Poor prognosis Status: Chronic (8) Anemia of other chronic disease Status: Chronic (9) Hypokalemia Status: Acute Clinical Quality Measures DVT/VTE Risk/Contraindication: Risk Factor Score Per Nursin RFS Level Per Nursing on Admit: 4+=Very High PHILLIP VICTORIA DO Jan 10, 2019 09:35
[2019-01-10] MEDS ORDERED: OXYC-529 PO (09:58)
[2019-01-10] MEDS ORDERED: ACET-2267 PO (09:58)
[2019-01-10] MEDS ORDERED: LEVO750T39 PO (09:58)
[2019-01-10] MEDS ORDERED: OXYB10TA PO (09:58)
[2019-01-10] MEDS ORDERED: CALC-694 PO (09:58)
[2019-01-10] MEDS ORDERED: MULT1TAB69 PO (09:58)
--- NOTE | 2019-01-10 10:00 | NUR ---
WENT OVER THE EXT MED HX WITH THE PATIENT WELL THE LIST THAT WAS SCANNED IN TO THE CHART. IN ADDITION TO THE LIST HE BROUGHT IN HE TAKES OXYCODONE NEEDED, OXYBUTYNIN DAILY, AND TYLENOL NEEDED. OTC MEDS INCLUDE: [employer] DAILY CALCIUM +D DAILY TYLENOL PRN
[2019-01-10] MEDS ORDERED: ONDANSETRON 4 MG/2 ML (SDV) Z0FRAN IVP PRN (11:15)
[2019-01-10] MEDS ORDERED: diphenhydrAMINE 25 MG TAB (BENADRYL) PO PRN (11:15)
[2019-01-10] MEDS ORDERED: MELATONIN 3 MG TABLET PO PRN (11:15)
[2019-01-10] MEDS ORDERED: DOCUSATE SODIUM 100 MG (COLACE) CAP PO PRN (11:15)
[2019-01-10] MEDS ORDERED: CALCIUM CARBONATE 500 MG (TUMS) TAB.CHEW PO PRN (11:15)
[2019-01-10] MEDS: HEParin DRIP 25000 UNIT/500ML 500 ML IV SCH (11:31)
[2019-01-10 12:00] VITALS: BP 125/74
--- NOTE | 2019-01-10 13:01 | Pulmonary Consultation ---
History of Present Illness History of Present Illness Date of Consultation 01/10/19 12:56 Time Seen by Provider: 12:56 Date of Admission History of Present Illness 78yo with hx of prostate cancer, and metastatic transitional cell carcinoma presented to ED from radiology after CT was positive for large saddle embolism. Pt has had worsening SOB and tachycardia. He was placed on a hep gtt and admitted to 4th floor. He is currently on 3 liters NC and he is not hypotensive. Allergies and Home Medications Allergies Coded Allergies: No Known Drug Allergies (Unverified , 11/13/12) Home Medications Acetaminophen 500 Mg Tablet, 1,000 MG PO Q6H PRN for PAIN-MILD, (Reported) Calcium Carbonate/Vitamin D3 1 Each Tablet, 1 TAB PO DAILY, (Reported) Diltiazem HCl 120 Mg Tablet, 120 MG PO BID, (Reported) Levofloxacin 750 Mg Tablet, 750 MG PO DAILY, (Reported) 7 DAY SUPPLY FILLED 01-08-19 Minocycline HCl 100 Mg Capsule, 100 MG PO DAILY, (Reported) Multivitamin 1 Each Tablet, 1 TAB PO DAILY, (Reported) Oxybutynin Chloride 10 Mg Tab.er.24, 10 MG PO DAILY, (Reported) Oxycodone HCl 5 Mg Tablet, 5 MG PO Q6H PRN for PAIN-SEVERE, (Reported) Tamsulosin HCl 0.4 Mg Cap.er.24h, 0.4 MG PO DAILY, (Reported) Triamterene/Hydrochlorothiazid 1 Each Capsule, 1 CAP PO DAILY, (Reported) Past Xchgwcy-Rhbzvq-Zduomv Hx Past Med/Social Hx: Reviewed Nursing Past Med/Soc Hx Patient Social History Alcohol Use: Denies Use Recreational Drug Use: No Smoking Status: Former Smoker Type Used: Cigarettes Former Smoker, Quit: Sep 18, 1960 2nd Hand Smoke Exposure: No Recent Foreign Travel: No Contact w/Someone Who Travel: No Recent Infectious Disease Expo: No Recent Hopitalizations: No Physical Abuse: No Sexual Abuse: No Immunizations Up To Date Tetanus Booster (TDap): Unknown PED Vaccines UTD: Yes Date of Pneumonia Vaccine: Sep 07, 2016 Date of Influenza Vaccine: Aug 07, 2018 Seasonal Allergies Seasonal Allergies: No Past Medical History Surgeries: Yes Abdominal, Gallbladder, Orthopedic Respiratory: Yes Sleep Apnea Currently Using CPAP: Yes Currently Using BIPAP: No Cardiac: Yes (Lymph edema, greater on the left) Hypertension Neurological: No Reproductive Disorders: No Sexually Transmitted Disease: No HIV/AIDS: No 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; PROSTATE CANCER) Prostate Problems Gastrointestinal: Yes (CHOLECYSTECTOMY 09/19/18) Diverticulosis Musculoskeletal: No Endocrine: No HEENT: No Loss of Vision: Denies Hearing Impairment: Denies Cancer: Yes Prostate Did You Recieve Any Treatments: Yes What Type of Treatment Did You: Radiation Psychosocial: No Integumentary: No Blood Disorders: No Adverse Reaction/Blood Tranf: No Family Medical History Reviewed Nursing Family Hx Diabetes mellitus 19 MOTHER Kidney disease G8 BROTHER PANCREATIC CANCER G8 SISTER Heart Disease, CAD Over 55 Years Old, Diabetes Review of Systems Time Seen by Provider: 13:02 Sepsis Event Evaluation Height, Weight, BMI Height: 6'0.00" Weight: 208lbs. 0.0oz. 94.402503nz; 28.2 BMI Method:Stated Exam Exam Vital Signs Date Time Temp Pulse Resp B/P (MAP) Pulse Ox O2 Delivery O2 Flow Rate FiO2 01/10/19 08:00 97.9 113 18 136/79 (98) 97 Nasal Cannula 3.00 01/10/19 07:00 109 01/10/19 04:48 98.0 107 20 125/75 (92) 97 Nasal Cannula 3.00 01/10/19 00:52 106 01/10/19 00:00 98.4 106 18 129/75 (93) 98 Nasal Cannula 3.00 01/09/19 20:00 Nasal Cannula 2.00 01/09/19 20:00 98.0 110 18 122/73 (89) 97 Nasal Cannula 3.00 01/09/19 19:02 110 01/09/19 18:30 96 Nasal Cannula 2.00 01/09/19 18:19 98.2 110 20 133/84 Nasal Cannula 96.00 01/09/19 17:51 97.1 104 15 117/78 (91) 95 Nasal Cannula 2.00 01/09/19 14:28 97.1 104 15 134/83 (100) 93 Room Air I & O 01/10/19 07:00 Intake Total 520 ml Output Total 200 ml Balance 320 ml Height & Weight Height: 6'0.00" Weight: 208lbs. 0.0oz. 94.489164fa; 28.2 BMI Method:Stated General Appearance: No Apparent Distress, WD/WN HEENT: PERRL/EOMI, Pharynx Normal Neck: Non Tender, Supple Respiratory: Lungs Clear, Normal Breath Sounds Cardiovascular: No Murmur, Tachycardia Capillary Refill: Less Than 3 Seconds Extremity: Normal Range of Motion, Non Tender Neurologic/Psychiatric: Alert, Oriented x3 Skin: Normal Color, Warm/Dry Results Lab Laboratory Tests 01/09/19 15:50 01/10/19 04:40 Assessment/Plan Assessment/Plan Acute Saddle PE -Hep gtt -Prior to discharge change hep to [id number] BID x 21days then 20mg daily. -Will wait and see if bx needs to be done. Left pleural effusion -Monitor HX of prostate cancer Acites and suspicion of peritoneal metastatic disease per CT scan - Dr. Naranjo is following MARIEL LORA DO Jan 10, 2019 13:01
--- NOTE | 2019-01-10 13:26 | Consultation-Cardiology ---
HPI-Cardiology Cardiology Consultation: Date of Consultation 01/10/19 Time Seen by a Provider: 12:50 Date of Admission 01-09-19 Attending Physician Jaime Chahal MD Admitting Physician Crispin Morris DO Consulting Physician Ranjan Carballo MD HPI: Chief Complaint: Pulmonary Embolism Mr. Dave is a 78 year old male who has been admitted to [facility] with pulmonary embolism. He reports for approx the last 3-4 days he has had chest discomfort when trying to take a deep breath. He denies any c/o dyspnea. He went to see him PCP Tuesday and was directed to have a CT on Tuesday. Based on the findings he was instructed to come to the hospital. He reports he has prostate cancer for which he is on chemo tx. He follows with Dr. Naranjo. He reports he has not been very active the last several days. He has chronic lymphedema of the left leg for which he wears a wrap. He denies any palpitations, syncope or near syncope. Review of Systems-Cardiology Review of Systems Constitutional: No chills, No fever; malaise Eyes: No vision change Ears/Nose/Throat: No epistaxis, No recent hearing loss, No ulcerations Respiratory: As described under HPI Cardiovascular: As described under HPI Gastrointestinal: No constipation, No diarrhea, No nausea, No vomiting Genitourinary: No dysuria, No hematuria Musculoskeletal: no symptoms reported Skin: No rash, No ulcerations Psychiatric/Neurological: No anxiety, No depression, No seizure, No focal weakness, No syncope Hematologic: No bleeding abnormalities All Other Systems Reviewed Negative Unless Noted: Yes SNE-Gvewqk-Znfxxc Hx Patient Social History Alcohol Use: Denies Use Recreational Drug Use: No Smoking Status: Former Smoker Type Used: Cigarettes 2nd Hand Smoke Exposure: No Recent Foreign Travel: No Recent Infectious Disease Expo: No Hospitalization with Isolation: Denies Immunizations Up To Date Tetanus Booster (TDap): Unknown Date of Pneumonia Vaccine: Sep 07, 2016 Date of Influenza Vaccine: Aug 07, 2018 Past Medical History PMH As described under Assessment. Family Medical History Family Medical History: He reports his father had CAD. Family History: Diabetes mellitus 19 MOTHER Kidney disease G8 BROTHER PANCREATIC CANCER G8 SISTER Allergies and Home Medications Allergies Coded Allergies: No Known Drug Allergies (Unverified , 11/13/12) Home Medications Acetaminophen 500 Mg Tablet, 1,000 MG PO Q6H PRN for PAIN-MILD, (Reported) Calcium Carbonate/Vitamin D3 1 Each Tablet, 1 TAB PO DAILY, (Reported) Diltiazem HCl 120 Mg Tablet, 120 MG PO BID, (Reported) Levofloxacin 500 Mg Tablet, 500 MG PO DAILY@11 Prescribed by: PHILLIP VICTORIA on 01/11/19933 Minocycline HCl 100 Mg Capsule, 100 MG PO DAILY, (Reported) Multivitamin 1 Each Tablet, 1 TAB PO DAILY, (Reported) Oxybutynin Chloride 10 Mg Tab.er.24, 10 MG PO DAILY, (Reported) Oxycodone HCl 5 Mg Tablet, 5 MG PO Q6H PRN for PAIN-SEVERE, (Reported) Rivaroxaban 15 Mg Tablet, 15 MG PO BID@07,17 Prescribed by: PHILLIP VICTORIA on 01/11/19933 Rivaroxaban 20 Mg Tablet, 20 MG PO HS START AFTER XARELTO 15MG BID X 21 DAYS IS COMPLETE Prescribed by: SANJUANA MENDES on 01/11/19 100 Tamsulosin HCl 0.4 Mg Cap.er.24h, 0.4 MG PO DAILY, (Reported) Triamterene/Hydrochlorothiazid 1 Each Capsule, 1 CAP PO DAILY, (Reported) Patient Home Medication List Home Medication List Reviewed: Yes Physical Exam-Cardiology Physical Exam Vital Signs/I&O Capillary Refill : Less Than 3 SecondsLess Than 3 Seconds Constitutional: AAO x 3, well-developed, well-nourished HEENT: PERRL, hearing is well preserved, oral hygience is good Neck: No carotid bruit; carotid pulses are 2 + bilaterally Respiratory: No accessory muscle use, No respiratory distress; chest expansion is symmetric, chest is bilaterally symmetric, other (poor inspiratory effort; diminished breath sounds) Cardiovascular: No JVD; S1 and S2, systolic murmur Gastrointestinal: No tender; soft Rectal: deferred Extremities: other (LLE edema) Neurologic/Psychiatric: grossly intact Skin: No rash, No ulcerations Data Review Labs Microbiology 01/09/19 Blood Culture - Preliminary, Resulted No growth Radiology NAME: LACY DAVE [facility] REC#: [id number] PT STATUS: REG CLI : 1940 PHYSICIAN: CRISPIN MORRIS DO ADMIT DATE: 01/09/19/RAD Signed Date of Exam: 01/09/19 CT ANGIO CHEST W PROCEDURE: CT angiography of the chest with contrast. TECHNIQUE: Multiple contiguous axial images were obtained through the chest after uneventful bolus administration of intravenous contrast. 2D reconstructed CTA MIP acquisitions were also performed. INDICATION: Elevated d-dimer with chest pain, shortness of breath. Correlation is made with prior CT from 09/14/2018. Evaluation of the pulmonary arterial system does show a saddle embolus in the central pulmonary arteries. There is thrombus extending into right upper lobe lobar and segmental branch. Right lower lobe pulmonary arteries are unremarkable. There is emboli occupying left upper lobe lobar and segmental branches as well as left lower lobe lobar and segmental branches. [place] as well as the anterior left upper lobe. There is associated infiltrate or atelectasis in the left lower lobe. Patient has developed a moderate-sized left pleural effusion layering dependently to a thickness of 5 cm. No right-sided pleural fluid is seen. There is no pericardial effusion. A right chest wall port is in place. No axillary lymphadenopathy is seen. There are enlarged lymph nodes in the holly bilaterally and subcarinal region, previously described. There appears to be some soft tissue density right paraesophageal location at the level of the distal esophagus. Upper abdomen does show a development of perihepatic and perisplenic ascites. There is some nodularity to the omentum in the anterior abdomen both in the right upper and right and left upper quadrant, suspicious for developing peritoneal carcinomatosis. A low-density lesion in the medial right lobe of the liver inferiorly is also noted and unchanged. There is a tiny low-density lesion more anteriorly in the right lobe again noted. IMPRESSION: 1. Findings consistent with a central saddle pulmonary embolus and bilateral upper and lower lobe pulmonary emboli. 2. Development of moderate left pleural effusion. There are also patchy pulmonary infiltrates present. 3. Mediastinal and hilar lymphadenopathy. 4. Development of upper abdominal ascites. There is also some omental nodularity developing suspicious for omental caking and peritoneal carcinomatosis. Results were called and discussed with Dr. Crispin Morris at 1:35 PM. 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 Naranjo Lymphedema of the LLE - chronic Hyponatremia Discussion and Recomendations Management of PE as per Dr. Victoria/Dr. Marielle Sams LE venous doppler today Hypokalemia likely d/t chronic diuretic tx - replace Echocardiogram to eval structure and function Continue antihypertensive regimen Monitor lab Further recs will be based on his hospital course We would like to thank medical services for this consult Clinical Quality Measures DVT/VTE Risk/Contraindication: Risk Factor Score Per Nursin RFS Level Per Nursing on Admit: 4+=Very High SAIGE JOAQUIN Jan 10, 2019 13:26
[2019-01-10] MEDS: POTASSIUM CL 10MEQ/50ML IVPB 50 ML IV SCH ×4 (13:28→17:47)
[2019-01-10] MEDS: NS IV 1000 ML 1,000 ML IV SCH (13:28)
[2019-01-10] MEDS: MINOCYCLINE 100 MG TABLET (NON-FORMULARY) PO SCH (13:29)
[2019-01-10] MEDS: ACETAMINOPHEN 500 MG TAB (TYLENOL) PO PRN ×2 (14:10→21:10)
--- NOTE | 2019-01-10 15:38 | Diagnostic Imaging Report ---
PROCEDURE: US Venous Lower Ext Prashant. TECHNIQUE: Multiple Real-time grayscale images were obtained over the lower extremities in various projections bilaterally. Additional duplex Doppler and color Doppler images were also obtained. INDICATION: Bilateral lower extremity swelling. FINDINGS: Both common femoral and superficial femoral veins appear to be patent. There appears to be minimal thrombus identified in the right popliteal vein, nonocclusive. The left popliteal vein is unremarkable. The peroneal and posterior tibial veins are patent bilaterally. Note is made of an enlarged lymph node in the left groin measuring 3.3 x 1.2 cm, indeterminate. No fluid collections are seen. IMPRESSION: 1. Unremarkable bilateral lower extremity venous Doppler with the exception of minimal thrombus in the right popliteal vein. No occlusive DVT is seen. 2. Enlarged left groin lymph node, indeterminate. Dictated by: Dictated on workstation # [id number]
[2019-01-10 16:45] VITALS: BP 125/77
--- NOTE | 2019-01-10 18:15 | Consultation ---
History of Present Illness History of Present Illness Patient Consulted On(carlos/time) 01/10/19 18:08 Date Seen by Provider: Jan 10, 2019 Time Seen by Provider: 18:09 History of Present Illness Mr. Leblanc is a 78 yo male with metastatic transitional cell carcinoma who was admitted yesterday for saddle pulmonary embolus. He developed pleuritic chest pain over the weekend about 4 days ago. He was thought to have pneumonia but CTA chest on 01/09/19 confirmed PE. He was started on heparin gtt on admission. Patient reports today that chest pain and shortness of breath are improved. He feels weak in general, and appetite is poor, but otherwise no major complaints. He was treated with two weeks of palliative chemotherapy in early December but was not able to complete cycle 1 because of cytopenias. Allergies and Home Medications Allergies Coded Allergies: No Known Drug Allergies (Unverified , 11/13/12) Home Medications Acetaminophen 500 Mg Tablet, 1,000 MG PO Q6H PRN for PAIN-MILD, (Reported) Calcium Carbonate/Vitamin D3 1 Each Tablet, 1 TAB PO DAILY, (Reported) Diltiazem HCl 120 Mg Tablet, 120 MG PO BID, (Reported) Levofloxacin 750 Mg Tablet, 750 MG PO DAILY, (Reported) 7 DAY SUPPLY FILLED 01-08-19 Minocycline HCl 100 Mg Capsule, 100 MG PO DAILY, (Reported) Multivitamin 1 Each Tablet, 1 TAB PO DAILY, (Reported) Oxybutynin Chloride 10 Mg Tab.er.24, 10 MG PO DAILY, (Reported) Oxycodone HCl 5 Mg Tablet, 5 MG PO Q6H PRN for PAIN-SEVERE, (Reported) Tamsulosin HCl 0.4 Mg Cap.er.24h, 0.4 MG PO DAILY, (Reported) Triamterene/Hydrochlorothiazid 1 Each Capsule, 1 CAP PO DAILY, (Reported) Patient Home Medication List Home Medication List Reviewed: Yes Past Rnowpay-Besjfa-Nqfqgv Hx Past Med/Social Hx: Reviewed Nursing Past Med/Soc Hx Patient Social History Alcohol Use: Denies Use Recreational Drug Use: No Smoking Status: Former Smoker Type Used: Cigarettes Former Smoker, Quit: Sep 18, 1960 2nd Hand Smoke Exposure: No Recent Foreign Travel: No Contact w/Someone Who Travel: No Recent Infectious Disease Expo: No Recent Hopitalizations: No Physical Abuse: No Sexual Abuse: No Immunizations Up To Date Tetanus Booster (TDap): Unknown PED Vaccines UTD: Yes Date of Pneumonia Vaccine: Sep 07, 2016 Date of Influenza Vaccine: Aug 07, 2018 Seasonal Allergies Seasonal Allergies: No Past Medical History Surgeries: Yes Abdominal, Gallbladder, Orthopedic Respiratory: Yes Sleep Apnea Currently Using CPAP: Yes Currently Using BIPAP: No Cardiac: Yes (Lymph edema, greater on the left) Hypertension Neurological: No Reproductive Disorders: No Sexually Transmitted Disease: No HIV/AIDS: No 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; PROSTATE CANCER) Prostate Problems Gastrointestinal: Yes (CHOLECYSTECTOMY 09/19/18) Diverticulosis Musculoskeletal: No Endocrine: No HEENT: No Loss of Vision: Denies Hearing Impairment: Denies Cancer: Yes Prostate Did You Recieve Any Treatments: Yes What Type of Treatment Did You: Radiation Psychosocial: No Integumentary: No Blood Disorders: No Adverse Reaction/Blood Tranf: No Family Medical History Reviewed Nursing Family Hx Diabetes mellitus 19 MOTHER Kidney disease G8 BROTHER PANCREATIC CANCER G8 SISTER Heart Disease, CAD Over 55 Years Old, Diabetes Review of Systems-General Constitutional: no symptoms reported EENTM: no symptoms reported Respiratory: see HPI Cardiovascular: see HPI Gastrointestinal: no symptoms reported Genitourinary: no symptoms reported Musculoskeletal: no symptoms reported Skin: no symptoms reported Psychiatric/Neurological: No Symptoms Reported Physical Exam-General Problems Physical Exam Vital Signs Vital Signs - First Documented 01/09/19 01/09/19 14:28 17:51 Temp 97.1 Pulse 104 Resp 15 B/P (MAP) 134/83 (100) Pulse Ox 93 O2 Delivery Room Air O2 Flow Rate 2.00 Capillary Refill : Less Than 3 SecondsLess Than 3 Seconds General Appearance: WD/WN, no apparent distress Eyes: Bilateral Eye Normal Inspection HEENT: normal ENT inspection, pharynx normal Neck: normal inspection Respiratory: chest non-tender, lungs clear, normal breath sounds, no respiratory distress, no accessory muscle use Cardiovascular: regular rate, rhythm, no edema Gastrointestinal: normal bowel sounds, non tender, soft Extremities: normal range of motion Neurologic/Psychiatric: alert, normal mood/affect, oriented x 3 Skin: normal color, warm/dry Assessment/Plan Assessment/Plan Admission Diagnosis/Plan 78 yo male with metastatic transitional cell carcinoma and biochemically recurrent prostate cancer is admitted with saddle PE. 1. PE. No particular contraindication to standard anticoagulation. Transition from heparin to oral anticoagulant is appropriate. 2. Transitional cell carcinoma. Initially with metastatic pelvic and gall bladder disease. CTA yesterday shows significant progression of disease with evidence of peritoneal carcinomatosis and likely thoracic involvement as well. Will address as outpatient. 3. Prostate cancer. Low priority disease given his aggressive bladder cancer. Will address as outpatient. Thank you for allowing me to participate in the care of Mr. Leblanc. We will see him back in clinic after he is discharged. Clinical Quality Measures DVT/VTE Risk/Contraindication: Risk Factor Score Per Nursin RFS Level Per Nursing on Admit: 4+=Very High Results Labs Labs Laboratory Tests 01/09/19 19:40: Activated Partial Thromboplast Time 71H 01/10/19 04:40: Activated Partial Thromboplast Time 64H, White Blood Count 10.3, Red Blood Count 3.68L, Hemoglobin 10.0L, Hematocrit 31L, Mean Corpuscular Volume 84, Mean Corpuscular Hemoglobin 27, Mean Corpuscular Hemoglobin Concent 33, Red Cell Distribution Width 16.6H, Platelet Count 364, Mean Platelet Volume 8.5, Neutrophils (%) (Auto) 74, Lymphocytes (%) (Auto) 10L, Monocytes (%) (Auto) 15H , Eosinophils (%) (Auto) 0, Basophils (%) (Auto) 1, Neutrophils # (Auto) 7.6, Lymphocytes # (Auto) 1.1, Monocytes # (Auto) 1.6H, Eosinophils # (Auto) 0.0, Basophils # (Auto) 0.1, Sodium Level 135, Potassium Level 3.3L, Chloride Level 100, Carbon Dioxide Level 26, Anion Gap 9, Blood Urea Nitrogen 14, Creatinine 0.80, Estimat Glomerular Filtration Rate > 60, BUN/Creatinine Ratio 18, Glucose Level 119H, Calcium Level 8.5, Corrected Calcium 9.5, Total Bilirubin 0.3, Aspartate Amino Transf (AST/SGOT) 14, Alanine Aminotransferase (ALT/SGPT) 7, Alkaline Phosphatase 67, Total Protein 5.8L, Albumin 2.7L 01/10/19 09:25: Activated Partial Thromboplast Time 80H 01/10/19 15:36: Activated Partial Thromboplast Time 67H Microbiology 01/09/19 Blood Culture - Preliminary, Resulted No growth Procedures Procedures Date of Exam: 01/09/19 CT ANGIO CHEST W PROCEDURE: CT angiography of the chest with contrast. TECHNIQUE: Multiple contiguous axial images were obtained through the chest after uneventful bolus administration of intravenous contrast. 2D reconstructed CTA MIP acquisitions were also performed. INDICATION: Elevated d-dimer with chest pain, shortness of breath. Correlation is made with prior CT from 09/14/2018. Evaluation of the pulmonary arterial system does show a saddle embolus in the central pulmonary arteries. There is thrombus extending into right upper lobe lobar and segmental branch. Right lower lobe pulmonary arteries are unremarkable. There is emboli occupying left upper lobe lobar and segmental branches as well as left lower lobe lobar and segmental branches. [place] as well as the anterior left upper lobe. There is associated infiltrate or atelectasis in the left lower lobe. Patient has developed a moderate-sized left pleural effusion layering dependently to a thickness of 5 cm. No right-sided pleural fluid is seen. There is no pericardial effusion. A right chest wall port is in place. No axillary lymphadenopathy is seen. There are enlarged lymph nodes in the holly bilaterally and subcarinal region, previously described. There appears to be some soft tissue density right paraesophageal location at the level of the distal esophagus. Upper abdomen does show a development of perihepatic and perisplenic ascites. There is some nodularity to the omentum in the anterior abdomen both in the right upper and right and left upper quadrant, suspicious for developing peritoneal carcinomatosis. A low-density lesion in the medial right lobe of the liver inferiorly is also noted and unchanged. There is a tiny low-density lesion more anteriorly in the right lobe again noted. IMPRESSION: 1. Findings consistent with a central saddle pulmonary embolus and bilateral upper and lower lobe pulmonary emboli. 2. Development of moderate left pleural effusion. There are also patchy pulmonary infiltrates present. 3. Mediastinal and hilar lymphadenopathy. 4. Development of upper abdominal ascites. There is also some omental nodularity developing suspicious for omental caking and peritoneal carcinomatosis. BRIAN COFFEY MD Jan 10, 2019 18:15
--- NOTE | 2019-01-10 18:53 | Consultation-Cardiology ---
HPI-Cardiology Cardiology Consultation: Date of Consultation 01/10/19 Time Seen by a Provider: 13:15 Date of Admission Attending Physician Jaime Chahal MD Admitting Physician Crispin Morris DO Consulting Physician HALIMA CAMPBELL MD, MA, FACP, FACC, [facility] [place], CCDS Physician requesting consult: Dr Kahn HPI: Chief Complaint: Reason for consultation: Pulmonary Embolism Mr. Leblanc is a 78 year old male who has been [facility] with pulmonary embolism. He reports for approx the last 3-4 days he has had chest discomfort when trying to take a deep breath. He denies any c/o dyspnea. He went to see him PCP Tuesday and was directed to have a CT on Tuesday. Based on the findings he was instructed to come to the hospital. He reports he has prostate cancer for which he is on chemo tx. He follows with Dr. Naranjo. He reports he has not been very active the last several days. He has chronic lymphedema of the left leg for which he wears a wrap. He denies any palpitations, syncope or near syncope. Review of Systems-Cardiology Review of Systems Constitutional: No chills, No fever; malaise Eyes: No vision change Ears/Nose/Throat: No epistaxis, No recent hearing loss, No ulcerations Respiratory: As described under HPI Cardiovascular: As described under HPI Gastrointestinal: No constipation, No diarrhea, No nausea, No vomiting Genitourinary: No dysuria, No hematuria Musculoskeletal: no symptoms reported Skin: No rash, No ulcerations Psychiatric/Neurological: No anxiety, No depression, No seizure, No focal weakness, No syncope Hematologic: No bleeding abnormalities All Other Systems Reviewed Negative Unless Noted: Yes KXV-Lwvsxt-Kwhbef Hx Patient Social History Alcohol Use: Denies Use Recreational Drug Use: No Smoking Status: Former Smoker Type Used: Cigarettes 2nd Hand Smoke Exposure: No Recent Foreign Travel: No Recent Infectious Disease Expo: No Hospitalization with Isolation: Denies Immunizations Up To Date Tetanus Booster (TDap): Unknown Date of Pneumonia Vaccine: Sep 07, 2016 Date of Influenza Vaccine: Aug 07, 2018 Past Medical History PMH As described under Assessment. Family Medical History Family Medical History: He reports his father had CAD. Family History: Diabetes mellitus 19 MOTHER Kidney disease G8 BROTHER PANCREATIC CANCER G8 SISTER Allergies and Home Medications Allergies Coded Allergies: No Known Drug Allergies (Unverified , 11/13/12) Home Medications Acetaminophen 500 Mg Tablet, 1,000 MG PO Q6H PRN for PAIN-MILD, (Reported) Calcium Carbonate/Vitamin D3 1 Each Tablet, 1 TAB PO DAILY, (Reported) Diltiazem HCl 120 Mg Tablet, 120 MG PO BID, (Reported) Levofloxacin 750 Mg Tablet, 750 MG PO DAILY, (Reported) 7 DAY SUPPLY FILLED 01-08-19 Minocycline HCl 100 Mg Capsule, 100 MG PO DAILY, (Reported) Multivitamin 1 Each Tablet, 1 TAB PO DAILY, (Reported) Oxybutynin Chloride 10 Mg Tab.er.24, 10 MG PO DAILY, (Reported) Oxycodone HCl 5 Mg Tablet, 5 MG PO Q6H PRN for PAIN-SEVERE, (Reported) Tamsulosin HCl 0.4 Mg Cap.er.24h, 0.4 MG PO DAILY, (Reported) Triamterene/Hydrochlorothiazid 1 Each Capsule, 1 CAP PO DAILY, (Reported) Patient Home Medication List Home Medication List Reviewed: Yes Physical Exam-Cardiology Physical Exam Vital Signs/I&O 01/10/19 01/10/19 01/10/19 01/10/19 07:00 08:00 08:15 12:00 Temp 97.9 97.4 Pulse 109 113 108 Resp 18 18 B/P (MAP) 136/79 (98) 125/74 (91) Pulse Ox 97 96 O2 Delivery Nasal Cannula Nasal Cannula Nasal Cannula O2 Flow Rate 3.00 2.00 3.00 01/10/19 13:05 Pulse 115 01/10/19 00:00 Intake Total 250 ml Output Total 200 ml Balance 50 ml Capillary Refill : Less Than 3 SecondsLess Than 3 Seconds Constitutional: AAO x 3, well-developed, well-nourished HEENT: PERRL, hearing is well preserved, oral hygience is good Neck: No carotid bruit; carotid pulses are 2 + bilaterally Respiratory: No accessory muscle use, No respiratory distress; chest expansion is symmetric, chest is bilaterally symmetric, other (poor inspiratory effort; diminished breath sounds) Cardiovascular: No JVD; S1 and S2, systolic murmur Gastrointestinal: No tender; soft Rectal: deferred Extremities: other (LLE edema) Neurologic/Psychiatric: grossly intact Skin: No rash, No ulcerations Data Review Labs Laboratory Tests 01/09/19 19:40: Activated Partial Thromboplast Time 71H 01/10/19 04:40: Activated Partial Thromboplast Time 64H, White Blood Count 10.3, Red Blood Count 3.68L, Hemoglobin 10.0L, Hematocrit 31L, Mean Corpuscular Volume 84, Mean Corpuscular Hemoglobin 27, Mean Corpuscular Hemoglobin Concent 33, Red Cell Distribution Width 16.6H, Platelet Count 364, Mean Platelet Volume 8.5, Neutrophils (%) (Auto) 74, Lymphocytes (%) (Auto) 10L, Monocytes (%) (Auto) 15H , Eosinophils (%) (Auto) 0, Basophils (%) (Auto) 1, Neutrophils # (Auto) 7.6, Lymphocytes # (Auto) 1.1, Monocytes # (Auto) 1.6H, Eosinophils # (Auto) 0.0, Basophils # (Auto) 0.1, Sodium Level 135, Potassium Level 3.3L, Chloride Level 100, Carbon Dioxide Level 26, Anion Gap 9, Blood Urea Nitrogen 14, Creatinine 0.80, Estimat Glomerular Filtration Rate > 60, BUN/Creatinine Ratio 18, Glucose Level 119H, Calcium Level 8.5, Corrected Calcium 9.5, Total Bilirubin 0.3, Aspartate Amino Transf (AST/SGOT) 14, Alanine Aminotransferase (ALT/SGPT) 7, Alkaline Phosphatase 67, Total Protein 5.8L, Albumin 2.7L 01/10/19 09:25: Activated Partial Thromboplast Time 80H 01/10/19 15:36: Activated Partial Thromboplast Time 67H Microbiology 01/09/19 Blood Culture - Preliminary, Resulted No growth A/P-Cardiology Assessment/Admission Diagnosis Findings consistent with a central saddle pulmonary embolus and bilateral upper and lower lobe pulmonary emboli per CTA on 01-09-19 HTN Transitional cell carcinoma stage IV, 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 Naranjo Lymphedema of the LLE - chronic Hyponatremia Discussion and Recomendations Management of PE as per Dr. Kahn/Dr. Marielle Sams LE venous doppler today Hypokalemia likely d/t chronic diuretic tx - replace Echocardiogram to eval structure and function Continue antihypertensive regimen Monitor lab Further recs will be based on his hospital course We would like to thank medical services for this consult Clinical Quality Measures DVT/VTE Risk/Contraindication: Risk Factor Score Per Nursin RFS Level Per Nursing on Admit: 4+=Very High HALIMA CAMPBELL MD FACP FAC CCDS Jan 10, 2019 18:53
[2019-01-10] MEDS: LEVOFLOXACIN 500 MG/D5W 100 ML (PRE-MIX) IV SCH (19:17)
[2019-01-10 19:40] VITALS: BP 128/77
[2019-01-10] MEDS: DILTIAZEM 120 MG (CARDIZEM CD) CAP PO SCH (20:10)
[2019-01-10] MEDS ORDERED: NON-FORMULARY MEDICATION 1 EA EA (Diltiazem HCl 120 MG) PO SCH (21:00)
[2019-01-11 00:36] VITALS: BP 133/79
[2019-01-11] MEDS: HEParin DRIP 25000 UNIT/500ML 500 ML IV SCH (02:30)
[2019-01-11 04:46] VITALS: BP 115/68
[2019-01-11 05:32] LABS: ALANINE AMINOTRANSFERASE 8 U/L (0-55); ALBUMIN 2.5 GM/DL (3.2-4.5); ALKALINE PHOSPHATASE 67 U/L (40-136); BILIRUBIN,TOTAL 0.3 MG/DL (0.1-1.0); BUN/CREATININE RATIO 14; CALCIUM 8.1 MG/DL (8.5-10.1); CARBON DIOXIDE 27 MMOL/L (21-32); CHLORIDE 102 MMOL/L (98-107); CREATININE SERUM 0.74 MG/DL (0.60-1.30); GFR ESTIMATED > 60; GLUCOSE 108 MG/DL (70-105); POTASSIUM 3.5 MMOL/L (3.6-5.0); SODIUM 139 MMOL/L (135-145); TOTAL PROTEIN 5.5 GM/DL (6.4-8.2)
--- NOTE | 2019-01-11 07:34 | Pulmonary Progress Note ---
Subjective Time Seen by a Provider: 07:34 Subjective/Events-last exam No complications noted. Sepsis Event Evaluation Height, Weight, BMI Height: 6'0.00" Weight: 208lbs. 0.0oz. 94.597054oj; 28.2 BMI Method:Stated Focused Exam Lactate Level 01/09/19 15:50: Lactic Acid Level 0.79 Exam Exam Vital Signs Date Time Temp Pulse Resp B/P (MAP) Pulse Ox O2 Delivery O2 Flow Rate FiO2 01/11/19 04:46 98.3 86 20 115/68 (84) 100 Nasal Cannula 2.00 01/11/19 03:00 97 Room Air 01/11/19 01:00 90 01/11/19 00:36 96.8 96 16 133/79 (97) 100 Nasal Cannula 2.00 01/10/19 21:55 98 Room Air 01/10/19 19:55 Nasal Cannula 3.00 01/10/19 19:40 98.7 104 20 128/77 (94) 99 Nasal Cannula 2.00 01/10/19 19:00 106 01/10/19 16:45 98.5 104 20 125/77 (93) 96 Nasal Cannula 2.00 01/10/19 13:05 115 01/10/19 12:00 97.4 108 18 125/74 (91) 96 Nasal Cannula 3.00 01/10/19 08:15 Nasal Cannula 2.00 01/10/19 08:00 97.9 113 18 136/79 (98) 97 Nasal Cannula 3.00 I & O 01/11/19 07:00 Intake Total 2230 ml Output Total 1200 ml Balance 1030 ml Height & Weight Height: 6'0.00" Weight: 208lbs. 0.0oz. 94.611954ca; 28.2 BMI Method:Stated General Appearance: No Apparent Distress, Chronically ill, Thin HEENT: PERRL/EOMI, Normal ENT Inspection, Pharynx Normal, Moist Mucous Membranes Neck: Full Range of Motion, Normal Inspection, Non Tender Respiratory: Chest Non Tender, Lungs Clear, Normal Breath Sounds, No Accessory Muscle Use, No Respiratory Distress, Decreased Breath Sounds Cardiovascular: Regular Rate, Rhythm, No Edema, No Gallop, No JVD, No Murmur, Normal Peripheral Pulses Capillary Refill: Less Than 3 Seconds Gastrointestinal: normal bowel sounds, non tender, soft Extremity: Normal Capillary Refill, Normal Inspection, Normal Range of Motion, Non Tender, No Calf Tenderness, No Pedal Edema Neurologic/Psychiatric: Alert, Oriented x3, No Motor/Sensory Deficits, Depressed Affect Skin: Normal Color, Warm/Dry Lymphatic: No Adenopathy Results Lab Laboratory Tests 01/09/19 15:50 01/10/19 04:40 01/11/19 04:55 Assessment/Plan Assessment/Plan Acute Saddle PE -Hep gtt -- change to xarelto -PT will need life long treatment - [id number] BID x 21days then 20mg daily. -Check home 02 qualification testing. Left pleural effusion probably malignant -Monitor HX of prostate cancer Ascites and suspicion of peritoneal metastatic disease per CT scan - Dr. Naranjo is following Pt is ok from pulmonary standpoint for discharge. I will follow as out patient. MARIEL LORA DO Jan 11, 2019 07:34
[2019-01-11 08:00] VITALS: BP 158/78
[2019-01-11] MEDS: DILTIAZEM 120 MG (CARDIZEM CD) CAP PO SCH (08:37)
[2019-01-11] MEDS ORDERED: NON-FORMULARY MEDICATION 1 EA EA (Triamterene/Hydrochlorothiazid (Triamterene-Hctz 37.5-25 PO SCH (09:00)
[2019-01-11] MEDS ORDERED: OXYBUTYNIN (DITROPAN) 5 MG TAB PO SCH (09:00)
[2019-01-11] MEDS ORDERED: NON-FORMULARY MEDICATION 1 EA EA (Oxybutynin Chloride (Oxybutynin Chloride ER) 10 MG) PO SCH (09:00)
[2019-01-11] MEDS ORDERED: TAMSULOSIN 0.4 MG (FLOMAX) CAP PO SCH (09:00)
[2019-01-11] MEDS ORDERED: TRIAMTERENE/HCTZ 75-50 (MAXZIDE,DYAZIDE) TABLET PO SCH (09:00)
[2019-01-11] MEDS ORDERED: LEVO500T80 PO (09:34)
[2019-01-11] MEDS ORDERED: RIVA15TA PO (09:34)
--- NOTE | 2019-01-11 09:37 | Discharge Summary-Hospitalist ---
Diagnosis/Chief Complaint Date of Admission Jan 09, 2019 at 15:28 Date of Discharge Discharge Date: Jan 11, 2019 Admission Diagnosis Assessment: Acute saddle PE Pneumonia Prostate cancer with aggressive spread per CT scan results HTN Plan: Heparin drip Dr Naranjo, Dr Palomares, Dr Carballo consultations are appreciated ECHO Discharge Diagnosis (1) Saddle embolism of pulmonary artery Status: Acute (2) Bilateral pneumonia Status: Acute (3) prostate cancer Status: Chronic (4) Obstruction of left ureter Status: Chronic (5) Pleural effusion on left Status: Acute (6) DNR (do not resuscitate) Status: Chronic (7) Poor prognosis Status: Chronic (8) Anemia of other chronic disease Status: Chronic (9) Hypokalemia Status: Acute Discharge Summary Discharge Physical Exam Allergies: Coded Allergies: No Known Drug Allergies (Unverified , 11/13/12) Vitals & I&Os Vital Signs Date Time Temp Pulse Resp B/P (MAP) Pulse Ox O2 Delivery O2 Flow Rate FiO2 01/11/19 13:52 100 22 158/78 99 Room Air 3.00 01/11/19 12:00 98.8 General Appearance: No Apparent Distress, WD/WN, Chronically ill Respiratory: Chest Non Tender, Lungs Clear, Normal Breath Sounds, No Accessory Muscle Use, No Respiratory Distress Cardiovascular: Regular Rate, Rhythm, No Edema, No Gallop, No JVD, No Murmur, Normal Peripheral Pulses Neurologic/Psychiatric: Alert, Oriented x3, No Motor/Sensory Deficits, Normal Mood/Affect Hospital Course Was the Problem List Reviewed?: Yes Hospital course: Pt had an uneventful hospital course. He was admitted and placed on Heparin drip after CT scan revealed saddle pulmonary emboli. Pt was placed on Xarelto. Home O2 evaluation was performed and orders were placed. Overall pt did well, had no significant new complications during hospital stay and Dr. Naranjo saw him as his own oncology pt and found no additional treatment was needed at this time but progressive prostate cancer noted on CT scan Labs (last 24 hrs) Laboratory Tests 01/10/19 22:59: Activated Partial Thromboplast Time 93H 01/11/19 04:55: Activated Partial Thromboplast Time 87H, Sodium Level 139, Potassium Level 3.5L , Chloride Level 102, Carbon Dioxide Level 27, Anion Gap 10, Blood Urea Nitrogen 10, Creatinine 0.74, Estimat Glomerular Filtration Rate > 60, BUN/ Creatinine Ratio 14, Glucose Level 108H, Calcium Level 8.1L, Corrected Calcium 9.3, Total Bilirubin 0.3, Aspartate Amino Transf (AST/SGOT) 13, Alanine Aminotransferase (ALT/SGPT) 8, Alkaline Phosphatase 67, Total Protein 5.5L, Albumin 2.5L Microbiology 01/09/19 Blood Culture - Preliminary, Resulted No growth Patient resulted labs reviewed. Pending Labs Discussion & Recommendations Discharge Planning: <30 minutes discharge planning Discharge Home Medications: Active Scripts Active Xarelto (Rivaroxaban) 20 Mg Tablet 20 Mg PO HS START AFTER XARELTO 15MG BID X 21 DAYS IS COMPLETE Xarelto (Rivaroxaban) 15 Mg Tablet 15 Mg PO BID@07,17 Levofloxacin 500 Mg Tablet 500 Mg PO DAILY@11 Reported Multivitamins (Multivitamin) 1 Each Tablet 1 Tab PO DAILY Tylenol Extra Strength (Acetaminophen) 500 Mg Tablet 1,000 Mg PO Q6H PRN Oxycodone HCl 5 Mg Tablet 5 Mg PO Q6H PRN Oxybutynin Chloride ER (Oxybutynin Chloride) 10 Mg Tab.er.24 10 Mg PO DAILY Calcium 600 + Vit D Caplet (Calcium Carbonate/Vitamin D3) 1 Each Tablet 1 Tab PO DAILY Tamsulosin HCl 0.4 Mg Cap.er.24h 0.4 Mg PO DAILY Diltiazem HCl 120 Mg Tablet 120 Mg PO BID Triamterene-Hctz 37.5-25 mg Cp (Triamterene/Hydrochlorothiazid) 1 Each Capsule 1 Cap PO DAILY Minocycline HCl 100 Mg Capsule 100 Mg PO DAILY Instructions to patient/family Please see electronic discharge instructions given to patient. Clinical Quality Measures DVT/VTE Risk/Contraindication: Risk Factor Score Per Nursin RFS Level Per Nursing on Admit: 4+=Very High Problem Qualifiers (1) Saddle embolism of pulmonary artery: Chronicity: acute Acute cor pulmonale presence: without acute cor pulmonale Qualified Codes: I26.92 - Saddle embolus of pulmonary artery without acute cor pulmonale (2) Bilateral pneumonia: Pneumonia type: due to unspecified organism Lung location: unspecified part of lung Qualified Codes: J18.9 - Pneumonia, unspecified organism PHILLIP VICTORIA DO Jan 11, 2019 09:37
[2019-01-11] MEDS: MINOCYCLINE 100 MG TABLET (NON-FORMULARY) PO SCH (09:57)
[2019-01-11] MEDS ORDERED: RIVA20TA PO (10:01)
[2019-01-11] MEDS ORDERED: LEVOFLOXACIN 500 MG TAB (LEVAQUIN) PO SCH (11:00)
--- NOTE | 2019-01-11 11:02 | NUR ---
worked with patient to determine cost for xarelto. Social work had a free 30 day coupon that covered the initial xarelto 15mg bid x 21 day prescription. Then utilized the [employer] savings program for the Xarelto 20mg daily. cost for a 90 day supply was $22.60
[2019-01-11 12:00] VITALS: BP 119/72
--- NOTE | 2019-01-11 12:31 | NUR ---
home oxygen study pt did not qualify for home oxygen at this time, walked on room air with no issues Addendum: 01/11/19 at 1234 by NOEMÍ MANLEY RT Amended: Links added.
--- NOTE | 2019-01-11 12:54 | NUR ---
NOTE THAT RT ADVISED THIS RN THAT PT DID NOT QUALIFY FOR HOME O2 -- S.W. NOT ON FLOOR LEFT MESSAGE
--- NOTE | 2019-01-11 13:04 | NUR ---
Pt relieved that he doesn't need oxygen in the home. His will be his primary caregiver. [facility].
--- NOTE | 2019-01-11 13:18 | Physical Therapy Evaluation ---
PT Evaluation-General Medical Diagnosis Admission Date Jan 09, 2019 at 15:28 Medical Diagnosis: B PNA, Metastatic Prostate CA, saddle embolism Onset Date: Jan 09, 2019 Therapy Diagnosis Therapy Diagnosis: decreased mobility Height/Weight Height (Feet): 6 Height (Inches): 0.00 Weight (Pounds): 208 Weight (Ounces): 0.0 Precautions Precautions/Isolations: Standard Precautions Weight Bear Status Right Lower Extremity: Right Weight Bearing/Tolerated Left Lower Extremity: Left Weight Bearing/Tolerated Referral Physician: Dr. Kahn Reason for Referral: Evaluation/Treatment Medical History Pertinent Medical History: Diverticulitis, HTN, Prostate CA Current History To ER by w/c from radiology after finding a large saddle embolism Reviewed History: Yes Social History Home: Single Level Current Living Status: Spouse Entry Into Home: Stairs With Railing PT Steps Into Home: 3 Prior/Core FIM Prior Level of Function Therapy Code Descriptions/Definitions Functional Cannon Measure: 0=Not Assessed/NA 4=Minimal Assistance 1=Total Assistance 5=Supervision or Setup 2=Maximal Assistance 6=Modified Cannon 3=Moderate Assistance 7=Complete Cannon Therapy Quality Codes: 6 Independent with activity with or without an assistive device 5 Patient requires set up or clean up by helper. Patient completes activity by themselves 4 Supervision or touching assist (CGA). Lambert provide cues , steadying assist 3 The helper provides less than half the effort to complete the activity 2 The helper provides more than half the effort to complete the activity 1 Dependent. The helper does all the effort to complete an activity 7 Patient refused to complete or attempt activity 9 The patient did not perform the activity before the current illness or injury 88 Not attempted due to Medical conditions or safety concerns Functional Abilities and Goals: Independent: Patient completed the activities by him/herself, with or without an assistive device, with no assistance from a helper. Needed Some Help: Patient needed partial assistance from another person to complete activities. Dependent: A helper completed the activities for the patient. Unknown: Not Applicable: Bed Mobility: 7 Transfers (B,C,W/C) (FIM): 7 Gait: 7 Stairs: 7 Indoor Mobility (Ambulation): Independent Stairs: Independent Prior Devices Use: None PT Evaluation-Current Subjective Pt in bed and in room. Both report that he is living once he is given the papers. Pt reports he walked down the lee with respiratory therapy just 5 mins ago and he did good. Pain Numeric Pain Scale: 0-No Pain Location: No Pain Reported Pt/Family Goals Pt to return home Objective Patient Orientation: Person, Place, Situation, Normal For Age ROM/Strength ROM Lower Extremities NT Strength Lower Extremities NT Neuromuscular (Tone, Coordination, Reflexes) NT Sensory Vision: Functional Hearing: Functional Sensation Lower Extremities NT Transfers Therapy Code Descriptions/Definitions Functional Cannon Measure: 0=Not Assessed/NA 4=Minimal Assistance 1=Total Assistance 5=Supervision or Setup 2=Maximal Assistance 6=Modified Cannon 3=Moderate Assistance 7=Complete Cannon Transfers (B, C, W/C) (FIM): 7 Scootin Supine to/from Sit: 7 Sit to/from Stand: 7 Gait Mode of Locomotion: Walk Anticipated Mode of Locomotion: Walk Gait (FIM): 7 Distance (FIM): 3=150 ft Distance: 400' Gait Level of Assist: 7 Gait Persons Needed: 1 Gait Assistive Device: None Comments/Gait Description Flexed posture Balance Sitting Static: Good Sitting Dynamic: Good Standing Static: Good Standing Dynamic: Good Assessment/Needs Pt performs bed mobility indep. Pt able to amb 400' indep with no AD and SPT is there for observation. Pt returned to room and transferred indep into bed. Pt will be dismissed from services and is d/c to home. Rehab Potential: Good Post Rehab Potential-Barriers: co-morbidities PT Plan Problem List Problem List: Activity Tolerance Treatment/Plan Treatment Plan: Discontinue PT Treatment Plan: Other Treatment Duration: Jan 11, 2019 Frequency: Estimated Hrs Per Day: Other Patient and/or Family Agrees t: Yes Discharge Recommendations Therapy D/C Recommendations: Home w/ Family Support, Home Independently Time/GCodes Time In: 1300 Time Out: 1308 Total Billed Treatment Time: 8 Total Billed Treatment 1 visit EVL 8 min PURVI REED PT Jan 11, 2019 13:18
[2019-01-11 13:52] VITALS: BP 158/78
[2019-01-11] MEDS ORDERED: RIVAROXABAN 15 MG TABLET (XARELTO) PO SCH (17:00)
[2019-02-02] MEDS ORDERED: RIVAROXABAN 20 MG TABLET (XARELTO) PO SCH (07:00)
== END 2019-01-11 14:01 | disposition home or self-care (01) | DRG 175 ==
LOC: EDUNIT# 14:28 → ER 14:30 → 4TH 15:28
PROVIDERS: ADMIT Internal Medicine; ATTEND Internal Medicine
DX: I26.92 Saddle embolus of pulmonary artery without acute cor pulmonale (principal); J18.9 Pneumonia, unspecified organism; C78.6 Secondary malignant neoplasm of retroperitoneum and peritoneum; C77.5 Secondary and unspecified malignant neoplasm of intrapelvic lymph nodes; C77.4 Secondary and unspecified malignant neoplasm of inguinal and lower limb lymph nodes; C78.89 Secondary malignant neoplasm of other digestive organs; C67.9 Malignant neoplasm of bladder, unspecified; J91.0 Malignant pleural effusion; Z66 Do not resuscitate; C61 Malignant neoplasm of prostate; E87.1 Hypo-osmolality and hyponatremia; N13.5 Crossing vessel and stricture of ureter without hydronephrosis; I89.0 Lymphedema, not elsewhere classified; E87.6 Hypokalemia; D63.8 Anemia in other chronic diseases classified elsewhere; I10 Essential (primary) hypertension; G47.30 Sleep apnea, unspecified; Z87.891 Personal history of nicotine dependence
CPT/HCPCS: 36415; 80053; 83605; 85025; 85610; 85730; 87040; 93306; 93970; 94760; 94761

== ENCOUNTER → 2019-01-09 | Outpatient (CLI) | payer MEDICARE ==
[~2019-01-09] MED LIST changes: +IOHEXOL 350 MG/ML 150 ML (OMNIPAQUE 350) VIAL IV ONE; +NS 100 ML (IVPB) BAG IV ONE; +RECEIVED CONTRAST 20 ML VIAL IV SCH
--- NOTE | 2019-01-09 13:54 | Diagnostic Imaging Report ---
PROCEDURE: CT angiography of the chest with contrast. TECHNIQUE: Multiple contiguous axial images were obtained through the chest after uneventful bolus administration of intravenous contrast. 2D reconstructed CTA MIP acquisitions were also performed. INDICATION: Elevated d-dimer with chest pain, shortness of breath. Correlation is made with prior CT from 09/14/2018. Evaluation of the pulmonary arterial system does show a saddle embolus in the central pulmonary arteries. There is thrombus extending into right upper lobe lobar and segmental branch. Right lower lobe pulmonary arteries are unremarkable. There is emboli occupying left upper lobe lobar and segmental branches as well as left lower lobe lobar and segmental branches. [place] as well as the anterior left upper lobe. There is associated infiltrate or atelectasis in the left lower lobe. Patient has developed a moderate-sized left pleural effusion layering dependently to a thickness of 5 cm. No right-sided pleural fluid is seen. There is no pericardial effusion. A right chest wall port is in place. No axillary lymphadenopathy is seen. There are enlarged lymph nodes in the holly bilaterally and subcarinal region, previously described. There appears to be some soft tissue density right paraesophageal location at the level of the distal esophagus. Upper abdomen does show a development of perihepatic and perisplenic ascites. There is some nodularity to the omentum in the anterior abdomen both in the right upper and right and left upper quadrant, suspicious for developing peritoneal carcinomatosis. A low-density lesion in the medial right lobe of the liver inferiorly is also noted and unchanged. There is a tiny low-density lesion more anteriorly in the right lobe again noted. IMPRESSION: 1. Findings consistent with a central saddle pulmonary embolus and bilateral upper and lower lobe pulmonary emboli. 2. Development of moderate left pleural effusion. There are also patchy pulmonary infiltrates present. 3. Mediastinal and hilar lymphadenopathy. 4. Development of upper abdominal ascites. There is also some omental nodularity developing suspicious for omental caking and peritoneal carcinomatosis. Results were called and discussed with Dr. Crispin Morris at 1:35 PM. Dictated by: Dictated on workstation # [id number]
== END ==
LOC: RAD 12:15
PROVIDERS: ATTEND Internal Medicine
DX: J90 Pleural effusion, not elsewhere classified (principal); R59.0 Localized enlarged lymph nodes; R18.8 Other ascites; K66.8 Other specified disorders of peritoneum
CPT/HCPCS: 71275

== ENCOUNTER 2019-01-18 19:10 | Emergency (ER) | payer MEDICARE ==
[~2019-01-18] VITALS: Ht 182.9 cm; Wt 94.3 kg
[~2019-01-18 19:10] MED LIST changes: +ACET-2267 PO; +CALC-694 PO; +LEVO500T80 PO; +LEVO750T39 PO; +MULT1TAB69 PO; +OXYB10TA PO; +OXYC-529 PO; +RIVA15TA PO; +RIVA20TA PO
[2019-01-18 20:16] LABS: CLARITY,URINE VERY CLOUDY; COLOR,URINE BROWN; PH,URINE 6 (5-9)
[2019-01-18 20:17] LABS: BILIRUBIN,URINE NEGATIVE (NEGATIVE); GLUCOSE, URINE (UA) NEGATIVE (NEGATIVE); KETONES,URINE NEGATIVE (NEGATIVE); LEUKOCYTE ESTERASE ,URINE 2+ (NEGATIVE); NITRITE,URINE NEGATIVE (NEGATIVE); PROTEIN,URINE 3+ (NEGATIVE); UROBILINOGEN,URINE NORMAL (NORMAL)
[2019-01-18 20:26] LABS: BACTERIA,URINE FEW /HPF; RBC,URINE TNTC /HPF
[2019-01-18] MEDS ORDERED: CEPHALEXIN 250 MG (KEFLEX) CAP PO ONE (20:30)
--- NOTE | 2019-01-18 20:36 | ED GU-Male ---
General Chief Complaint: -Male Stated Complaint: BLOOD IN URINE Nursing Triage Note: pt presents to ed with complaints of blood in urine starting about 1830 after voiding. pt reports he recently started on xeralto about a week ago for a PE. Source: patient History of Present Illness Date Seen by Provider: Jan 18, 2019 Time Seen by Provider: 20:19 Initial Comments The patient presents to ER by private conveyance with his son and chief complaint that he was feeling pretty good day but then noticed a stream of blood -tinged urine when he urinated today. About a week ago he was diagnosed with a pulmonary embolism put on Xarelto. Progressively improving since that time. He thinks the pulmonary embolism is because he has a history of prostate and bladder cancer. He is under the treatment of Dr. Naranjo, oncology. He received radiation to the bladder and October 2018 and long before that had radiation pellets placed in the prostate. His urologist is in [place] at [place]. He is not having any chest pain shortness of breath weakness or tiredness beyond normal. He denies any incomplete micturition, dysuria, passing clots or feeling that he still has urine left in his bladder. Allergies and Home Medications Allergies Coded Allergies: No Known Drug Allergies (Unverified , 11/13/12) Home Medications Acetaminophen 500 Mg Tablet, 1,000 MG PO Q6H PRN for PAIN-MILD, (Reported) Calcium Carbonate/Vitamin D3 1 Each Tablet, 1 TAB PO DAILY, (Reported) Diltiazem HCl 120 Mg Tablet, 120 MG PO BID, (Reported) Multivitamin 1 Each Tablet, 1 TAB PO DAILY, (Reported) Oxycodone HCl 5 Mg Tablet, 5 MG PO Q6H PRN for PAIN-SEVERE, (Reported) Rivaroxaban 15 Mg Tablet, 15 MG PO BID@,17 Prescribed by: PHILLIP VICTORIA on 01/11/19 0934 Rivaroxaban 20 Mg Tablet, 20 MG PO HS START AFTER XARELTO 15MG BID X 21 DAYS IS COMPLETE Prescribed by: MARIEL LORA on 01/11/19 1001 Tamsulosin HCl 0.4 Mg Cap.er.24h, 0.4 MG PO DAILY, (Reported) Patient Home Medication List Home Medication List Reviewed: Yes Review of Systems Review of Systems Constitutional: No chills, No malaise, No weakness EENTM: No ear pain, No eye pain Respiratory: No cough, No short of breath Cardiovascular: No chest pain, No edema Gastrointestinal: No abdominal pain, No constipation, No nausea Genitourinary: denies burning, denies discharge, denies dysuria; hematuria; denies incontinence, denies pain Past Kurmgsz-Wfzjkl-Gquwah Hx Patient Social History Alcohol Use: Denies Use Recreational Drug Use: No Smoking Status: Former Smoker Type Used: Cigarettes Former Smoker, Quit: Sep 18, 1960 2nd Hand Smoke Exposure: No Recent Foreign Travel: No Contact w/Someone Who Travel: No Recent Infectious Disease Expo: No Recent Hopitalizations: No Immunizations Up To Date Tetanus Booster (TDap): Unknown PED Vaccines UTD: Yes Date of Pneumonia Vaccine: Sep 07, 2016 Date of Influenza Vaccine: Aug 07, 2018 Seasonal Allergies Seasonal Allergies: No Past Medical History Surgeries: Yes Abdominal, Gallbladder, Orthopedic Respiratory: Yes Pulmonary Embolism, Sleep Apnea Currently Using CPAP: Yes Currently Using BIPAP: No Cardiac: Yes (Lymph edema, greater on the left) Hypertension Neurological: No Reproductive Disorders: No Sexually Transmitted Disease: No HIV/AIDS: No 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; PROSTATE CANCER) Prostate Problems Gastrointestinal: Yes (CHOLECYSTECTOMY 09/19/18) Diverticulosis Musculoskeletal: No (lymphadema) Endocrine: No HEENT: No Loss of Vision: Denies Hearing Impairment: Denies Cancer: Yes Bladder, Prostate Did You Recieve Any Treatments: Yes What Type of Treatment Did You: Radiation Psychosocial: No Integumentary: No Blood Disorders: No Adverse Reaction/Blood Tranf: No Family Medical History Diabetes mellitus 19 MOTHER Kidney disease G8 BROTHER PANCREATIC CANCER G8 SISTER Heart Disease, CAD Over 55 Years Old, Diabetes Physical Exam Vital Signs Vital Signs - First Documented 01/18/19 19:27 Temp 98.3 Pulse 103 Resp 18 B/P (MAP) 129/76 (93) Pulse Ox 96 Capillary Refill : Less Than 3 Seconds Height, Weight, BMI Height: 6'0.00" Weight: 208lbs. 0.0oz. 94.587724nk; 28.2 BMI Method:Stated General Appearance: WD/WN, no apparent distress HEENT: PERRL/EOMI, pharynx normal Cardiovascular: normal peripheral pulses, regular rate, rhythm, no edema Respiratory: no respiratory distress, no accessory muscle use Gastrointestinal: normal bowel sounds, non tender, soft Neurologic/Psychiatric: alert, normal mood/affect, oriented x 3 Skin: normal color, warm/dry Progress/Results/Core Measures Suspected Sepsis Recent Fever Within 48 Hours: No Infection Criteria Present: None New/Unexplained Altered Menta: No Sepsis Screen: No Definite Risk SIRS Temperature:98.3 Pulse: 103 Respiratory Rate: 18 Laboratory Tests 01/18/19 20:45: White Blood Count 5.3 Blood Pressure 129 /76 Mean: 93 Laboratory Tests 01/18/19 20:45: Platelet Count 319 Results/Orders Lab Results Laboratory Tests Test 01/18/19 20:06 01/18/19 20:45 Range/Units Urine Color BROWN H Urine Clarity VERY CLOUDY H Urine pH 6 5-9 Urine Specific [place] 1.020 1.016-1.022 Urine Protein 3+ H NEGATIVE Urine Glucose (UA) NEGATIVE NEGATIVE Urine Ketones NEGATIVE NEGATIVE Urine Nitrite NEGATIVE NEGATIVE Urine Bilirubin NEGATIVE NEGATIVE Urine Urobilinogen NORMAL NORMAL MG/DL Urine Leukocyte Esterase 2+ H NEGATIVE Urine RBC (Auto) 5+ H NEGATIVE Urine RBC TNTC H /HPF Urine WBC 5-10 H /HPF Urine Crystals NONE /LPF Urine Bacteria FEW H /HPF Urine Casts NONE /LPF Urine Mucus NEGATIVE /LPF Urine Culture Indicated YES White Blood Count 5.3 4.3-11.0 10^3/uL Red Blood Count 4.03 L 4.35-5.85 10^6/uL Hemoglobin 10.8 L 13.3-17.7 G/DL Hematocrit 34 L 40-54 % Mean Corpuscular Volume 83 80-99 FL Mean Corpuscular Hemoglobin 27 25-34 PG Mean Corpuscular Hemoglobin Concent 32 32-36 G/DL Red Cell Distribution Width 16.9 H 10.0-14.5 % Platelet Count 319 130-400 10^3/uL Mean Platelet Volume 8.1 7.4-10.4 FL Neutrophils (%) (Auto) 62 42-75 % Lymphocytes (%) (Auto) 19 12-44 % Monocytes (%) (Auto) 18 H 0-12 % Eosinophils (%) (Auto) 0 0-10 % Basophils (%) (Auto) 1 0-10 % Neutrophils # (Auto) 3.2 1.8-7.8 X 10^3 Lymphocytes # (Auto) 1.0 1.0-4.0 X 10^3 Monocytes # (Auto) 0.9 0.0-1.0 X 10^3 Eosinophils # (Auto) 0.0 0.0-0.3 10^3/uL Basophils # (Auto) 0.1 0.0-0.1 10^3/uL My Orders Orders - LIDIA ISRAEL Ua Culture If Indicated (01/18/19 20:11) Urine Culture (01/18/19 20:06) Cbc With Automated Diff (01/18/19 20:28) Cephalexin Capsule (Keflex Capsule) (01/18/19 20:30) Medications Given in ED Current Medications Medications Dose Ordered Sig/Kathie Route Start Time Stop Time Status Last Admin Dose Admin Cephalexin HCl 500 mg ONCE ONCE PO 01/18/19 20:30 01/18/19 20:31 DC 01/18/19 20:41 500 MG Vital Signs/I&O 01/18/19 19:27 Temp 98.3 Pulse 103 Resp 18 B/P (MAP) 129/76 (93) Pulse Ox 96 Capillary Refill : Less Than 3 Seconds Blood Pressure Mean: 93 Progress Note : Time: 20:25 Progress Note Heart rate normalized by the time I got into the room with him. He is resting it piece with no discomfort. No evidence of urinary retention. Gross hematuria so a plan to cover him with some Keflex for 7 days and have him follow-up with his urologist outpatient. We'll check a CBC to see if there is any significant anemia but is not symptomatic at this time. His last hemoglobin from early January was around 11. We have offered to do a rectal exam and he has declined. Departure Impression Primary Impression: Hematuria Qualified Codes: R31.0 - Gross hematuria Additional Impressions: History of pulmonary embolism Anticoagulants causing adverse effect in therapeutic use Qualified Codes: T45.515A - Adverse effect of anticoagulants, initial encounter History of prostate cancer History of bladder cancer Disposition: 01 HOME, SELF-CARE Condition: Stable Departure-Patient Inst. Decision time for Depature: 21:00 Referrals: GERMAN GARZON DO (PCP/Family) Primary Care Physician Patient Instructions: Blood in the Urine (Hematuria), Adult (DC) Add. Discharge Instructions: Drink plenty of fluids to keep your urine flushed. If you have difficulty passing urine or if you feel like you cannot empty your bladder then you should return either to your primary care doctor or the nearest ER for further evaluation and management. Return to the ER if you start to have weakness, shortness of breath or chest pain. Tomorrow morning contact your urologist and request follow-up. Continue to take your medications as prescribed. Contacted her primary care doctor and request a recheck of your hemoglobin early next week. Continue to take the Keflex one capsule twice a day for the next week to prevent bladder infection. All discharge instructions reviewed with patient and/or family. Voiced understanding. Scripts Cephalexin (Cephalexin) 500 Mg Tablet 500 MG PO BID for 7 Days, #14 TAB 0 Refills Prov: LIDIA ISRAEL 01/18/19 Copy Copies To 1: GERMAN GARZON DO LIDIA ISRAEL Jan 18, 2019 20:36
[2019-01-18 20:50] LABS: BASOPHILS # (AUTO) 0.1 10^3/uL (0.0-0.1); BASOPHILS % (AUTO) 1 % (0-10); EOSINOPHILS % (AUTO) 0 % (0-10); HEMATOCRIT 34 % (40-54); HEMOGLOBIN 10.8 G/DL (13.3-17.7); LYMPHOCYTES % (AUTO) 19 % (12-44); MEAN CORPUSCULAR HEMOGLOBIN 27 PG (25-34); MEAN CORPUSCULAR HGB CONC 32 G/DL (32-36); MEAN CORPUSCULAR VOLUME 83 FL (80-99); MEAN PLATELET VOLUME 8.1 FL (7.4-10.4); MONOCYTES # (AUTO) 0.9 X 10^3 (0.0-1.0); MONOCYTES % (AUTO) 18 % (0-12); NEUTROPHILS # (AUTO) 3.2 X 10^3 (1.8-7.8); NEUTROPHILS % (AUTO) 62 % (42-75); PLATELET COUNT 319 10^3/uL (130-400); RED CELL DISTRIBUTION WIDTH 16.9 % (10.0-14.5); WHITE BLOOD COUNT 5.3 10^3/uL (4.3-11.0)
[2019-01-18] MEDS ORDERED: CEPH500T PO (21:02)
[2019-01-18 21:10] VITALS: BP 110/71
== END 2019-01-18 21:12 | disposition home or self-care (01) ==
LOC: EDUNIT# 19:10 → ER 19:11
DX: R31.9 Hematuria, unspecified (principal); T45.515A Adverse effect of anticoagulants, initial encounter; G47.30 Sleep apnea, unspecified; I10 Essential (primary) hypertension; Z80.0 Family history of malignant neoplasm of digestive organs; Z82.49 Family history of ischemic heart disease and other diseases of the circulatory system; Z90.49 Acquired absence of other specified parts of digestive tract; Z87.19 Personal history of other diseases of the digestive system; Z86.711 Personal history of pulmonary embolism; Z85.46 Personal history of malignant neoplasm of prostate; Z85.51 Personal history of malignant neoplasm of bladder; Z79.01 Long term (current) use of anticoagulants; Z87.891 Personal history of nicotine dependence; Z98.890 Other specified postprocedural states
CPT/HCPCS: 36415; 81000; 85025; 87088

== ENCOUNTER → 2019-02-19 | Outpatient (CLI) | payer MEDICARE ==
[~2019-02-19] MED LIST changes: +CEPH500T PO; -RIVA15TA PO; +RIVA15TA2 PO; -RIVA20TA PO; +RIVA20TA2 PO
--- NOTE | 2019-02-19 08:58 | Diagnostic Imaging Report ---
INDICATION: Abdominal ascites TECHNIQUE: Multiple real time aragon scale sonographic images were obtained of the four-quadrants of the abdomen. CORRELATION STUDY: None FINDINGS: Limited imaging the abdomen demonstrates a moderate amount of abdominal ascites to be present. An area for paracentesis was marked in the right lower quadrant. IMPRESSION: 1.Moderate amount of abdominal ascites. Dictated by: Dictated on workstation # [id number]
== END ==
LOC: RAD 06:51
PROVIDERS: ATTEND Internal Medicine
DX: C61 Malignant neoplasm of prostate (principal); C78.89 Secondary malignant neoplasm of other digestive organs; R18.0 Malignant ascites; I26.99 Other pulmonary embolism without acute cor pulmonale; K21.9 Gastro-esophageal reflux disease without esophagitis
CPT/HCPCS: 76705

== ENCOUNTER 2019-02-20 11:30 | Outpatient (CLI) | payer MEDICARE ==
[~2019-02-20] VITALS: Ht 182.9 cm; Wt 94.3 kg
[2019-02-20 13:45] VITALS: BP 127/93
[2019-02-20 14:24] LABS: AMYLASE,BODY FLUID 13 U/L; GLUCOSE,BODY FLUID 111 MG/DL; LDH,BODY FLUID 160 U/L; TOTAL PROTEIN,BODY FLUID 5.9 G/DL
[2019-02-20 15:20] LABS: BODY FLUID SOURCE PERITON
[2019-02-20 15:21] LABS: BODY FLUID APPEARENCE MOD CLDY; BODY FLUID COLOR PALE YELLOW; BODY FLUID WBC TOTAL COUNT 345 /uL
[2019-02-20 15:22] LABS: BF OTHER CELLS 2 %; BODY FLUID RBC COUNT 2400 /uL; LYMPHOCYTES,BODY FLUID 30 %
--- NOTE | 2019-02-20 17:58 | Diagnostic Imaging Report ---
INDICATION: Ascites. FINDINGS: Sonographic guidance was provided for Dr. Sarah during paracentesis. Images demonstrate a large amount of abdominal fluid in the right lower quadrant. IMPRESSION: Sonographic guidance for Dr. Sarah for paracentesis. Dictated by: Dictated on workstation # [id number]
--- NOTE | 2019-02-22 01:21 | OPERATIVE REPORT ---
DATE OF SERVICE: 02/20/2019 PREOPERATIVE DIAGNOSIS: Ascites. POSTOPERATIVE DIAGNOSIS: Ascites, pending pathology. PROCEDURE: Paracentesis with ultrasound guidance. SURGEON: Jose Alejandro Sarah DO. AUTOMOTIVE PARTS COUNTER PERSON: None. ANESTHESIA: Just local lidocaine. BLOOD LOSS: Scant. FLUIDS: None. SPECIMEN: Abdominal ascites, approximately 5500 mL. INDICATION FOR PROCEDURE: The patient is a 78-year-old male who unfortunately has some bladder cancer, increasing abdominal ascites and needs a paracentesis. FINDINGS: The patient had fluid drained. It was yellowish milky looking color, sent to pathology for cytology as well as cultures and cell counts. PROCEDURE NOTE: After informed consent was obtained, the patient was in the outpatient center. He was sterilely prepped and draped in the normal fashion. Ultrasound had already marked a spot on the right lower quadrant, infiltrated this area with local, then made a stab incision with #11 blade and then advanced the needle with the ovary with a catheter over it through the abdomen into the abdominal cavity into the fluid collection, watches entered with ultrasound guidance and entered and then carefully advanced the catheter and we withdrew the needle. There was no difficulty. Then, drained about 5500 mL of yellowish milky looking fluid. This was all sent to pathology. The catheter was removed pressure held. A dressing placed. Area cleaned and dried. The patient was then sent home that day, tolerated the procedure. Job ID: [id number] DocumentID: [id number] Dictated Date: 02/21/2019 14:50:47 [employer] Machine Operator Date: 02/22/2019 01:20:53 Dictated By: JOSE ALEJANDRO SARAH DO
== END 2019-02-20 13:45 | disposition home or self-care (01) ==
LOC: SDC 11:30
PROVIDERS: ATTEND Surgery
DX: R18.8 Other ascites (principal)
CPT/HCPCS: 49082; 49083; 82150; 82570; 82945; 83615; 84157; 87070; 87075; 87101; 87116; 87205; 87206; 89051

== ENCOUNTER 2019-03-12 07:19 | Emergency (ER) | payer MEDICARE ==
[~2019-03-12] VITALS: Ht 182.9 cm; Wt 113.4 kg
--- NOTE | 2019-03-12 08:08 | ED GI ---
General Chief Complaint: Abdominal/GI Problems Stated Complaint: ABD PAIN Nursing Triage Note: PT PRESENTS TO ED WITH COMPLAINTS OF R UPPER ABDOMINAL PAIN AND GENERALIZED ABDOMINAL SWELLING X 2 DAYS. PT REPORTS NAUSEA BUT NO VOMITING. Sepsis Screen: No Definite Risk Source of Information: Patient Exam Limitations: No Limitations History of Present Illness Date Seen by Provider: March 12, 2019 Time Seen by Provider: 07:47 Initial Comments Here with abdominal pain that he believes is related to his abdominal distention. Does have history of bladder cancer and prostate cancer that is not amiable to treatment and he is pursuing comfort care measures and hospice. Did have paracentesis 3 weeks ago which markedly improved his pain. He thinks he needs to have another one of those. Denies fever or chills. Denies nausea, vomiting or diarrhea. Pain he reports is along the diaphragm and it hurts to breathe because of the pressure in his abdomen. Timing/Duration: 3-4 Days, Getting Worse Severity/Quality: Moderate, Aching Location: Generalized Abdomen Radiation: No Radiation Modifying Factors: Worsens With Breathing Associated Symptoms: No Fever/Chills, No Nausea/Vomiting; Shortness of Air, Swelling/Mass in Abdomen; No Weakness Allergies and Home Medications Allergies Coded Allergies: No Known Drug Allergies (Unverified , 11/13/12) Home Medications Acetaminophen 500 Mg Tablet, 1,000 MG PO Q6H PRN for PAIN-MILD, (Reported) Calcium Carbonate/Vitamin D3 1 Each Tablet, 1 TAB PO DAILY, (Reported) Cephalexin 500 Mg Tablet, 500 MG PO BID Prescribed by: LIDIA ISRAEL on 01/18/192101 Diltiazem HCl 120 Mg Tablet, 120 MG PO BID, (Reported) Multivitamin 1 Each Tablet, 1 TAB PO DAILY, (Reported) Oxycodone HCl 5 Mg Tablet, 5 MG PO Q6H PRN for PAIN-SEVERE, (Reported) Rivaroxaban 15 Mg Tablet, 15 MG PO BID@07,17 Prescribed by: PHILLIP VICTORIA on 01/11/19 0934 Rivaroxaban 20 Mg Tablet, 20 MG PO HS START AFTER XARELTO 15MG BID X 21 DAYS IS COMPLETE Prescribed by: MARIEL LORA on 01/11/19 1001 Tamsulosin HCl 0.4 Mg Cap.er.24h, 0.4 MG PO DAILY, (Reported) Patient Home Medication List Home Medication List Reviewed: Yes Review of Systems Review of Systems Constitutional: see HPI; No chills, No fever Respiratory: See HPI; Denies Orthopnea; SOA With Exertion Cardiovascular: Denies Chest Pain; Edema Gastrointestinal: See HPI Genitourinary: No Symptoms Reported Past Tzpnfro-Esdumz-Zvbtjk Hx Past Med/Social Hx: Reviewed Nursing Past Med/Soc Hx Patient Social History Alcohol Use: Denies Use Recreational Drug Use: No Smoking Status: Former Smoker Type Used: Cigarettes Former Smoker, Quit: Sep 18, 1960 2nd Hand Smoke Exposure: No Recent Foreign Travel: No Contact w/Someone Who Travel: No Recent Infectious Disease Expo: No Recent Hopitalizations: No Physical Abuse: No Sexual Abuse: No Mistreated: No Fear: No Immunizations Up To Date Tetanus Booster (TDap): Unknown PED Vaccines UTD: Yes Date of Pneumonia Vaccine: Sep 07, 2016 Date of Influenza Vaccine: Aug 07, 2018 Seasonal Allergies Seasonal Allergies: No Past Medical History Surgeries: Yes (r knee, kidney stent, port placement, ) Abdominal, Gallbladder, Orthopedic Respiratory: Yes Pulmonary Embolism, Sleep Apnea Currently Using CPAP: Yes Currently Using BIPAP: No Cardiac: Yes (Lymph edema, greater on the left) Hypertension Neurological: No Reproductive Disorders: No Sexually Transmitted Disease: No HIV/AIDS: No 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; PROSTATE CANCER) Prostate Problems Gastrointestinal: Yes (CHOLECYSTECTOMY 09/19/18) Diverticulosis Musculoskeletal: No (lymphadema) Endocrine: No HEENT: No Loss of Vision: Denies Hearing Impairment: Denies Cancer: Yes Bladder, Prostate Did You Recieve Any Treatments: Yes What Type of Treatment Did You: Radiation Psychosocial: No Integumentary: No Blood Disorders: No Adverse Reaction/Blood Tranf: No Family Medical History Reviewed Nursing Family Hx Diabetes mellitus 19 MOTHER Kidney disease G8 BROTHER PANCREATIC CANCER G8 SISTER Heart Disease, CAD Over 55 Years Old, Diabetes Physical Exam Vital Signs Vital Signs - First Documented 03/12/19 07:35 Temp 97.7 Pulse 110 Resp 18 B/P (MAP) 136/90 (105) Pulse Ox 97 Capillary Refill : Less Than 3 Seconds Height/Weight/BMI Height: 6'0.00" Weight: 250lbs. 0.0oz. 113.958126xi; 28.2 BMI Method:Stated General Appearance: WD/WN, no apparent distress Respiratory: lungs clear, normal breath sounds Cardiovascular: no murmur, tachycardia Gastrointestinal: abnormal bowel sounds (decreased), distended (findings consistent with abdominal ascites) Extremities: non-tender, pedal edema (2+ bilateral lower extremities to mid tibia) Neurologic/Psychiatric: alert, oriented x 3 Skin: normal color, warm/dry Progress/Results/Core Measures Results/Orders My Orders Orders - MAURA SPAIN MD Us Abdomen Limited [id number] (03/12/19 07:53) Vital Signs/I&O 03/12/19 07:35 Temp 97.7 Pulse 110 Resp 18 B/P (MAP) 136/90 (105) Pulse Ox 97 Blood Pressure Mean: 105 Progress Progress Note : Progress Note Seen and evaluated. I discussed the case with Dr. Sarah. He will see if he can arrange for outpatient procedure for paracentesis. He is not requiring any labs at this point but has asked for ultrasound for marking which was ordered. Monitor patient. 0905: Ultrasound has completed marking of the right lower quadrant. We will discharge patient from the emergency department he will go to outpatient surgery department for her centesis later today. Dr. Sarah is in agreement. Discharge with return precautions. Patient verbalize understanding instructions and agreement with plan. Diagnostic Imaging Diagonstic Imaging: Ultrasound Plain Films/CT/US/NM/MRI: abdomen Comments Patient marked to right lower quadrant Departure Impression Primary Impression: Ascites Qualified Codes: R18.0 - Malignant ascites Additional Impression: Recurrent prostate cancer Disposition: HOME, SELF-CARE Condition: Stable Departure-Patient Inst. Decision time for Depature: 09:08 Referrals: GERMAN GARZON DO (PCP/Family) Primary Care Physician Patient Instructions: Fluid in the Belly (Ascites) (DC), Acute Abdomen (Belly Pain), Adult (DC) Add. Discharge Instructions: All discharge instructions reviewed with patient and/or family. Voiced understanding. You will go to the outpatient surgery area for procedure for draining the fluid in her abdomen. Return for other concerns as needed. MAURA SPAIN MD March 12, 2019 08:08
--- OUTSIDE RECORDS SUMMARY | 2019-03-12 08:12 | XMS REPORT | Clinical Summary ---
Author Author [facility] Organization [facility] Address Unknown Phone Unavailable Care Team Providers Care Control Room Supervisor Name Role Phone PCP Unavailable Source Comments Some departments are not documenting in the electronic medical record. If you do not see the information that you expected, contact Release of Information in the Health Information Management department at [phone] for further assistance in locating additional records.[facility] Allergies Not on File Medications Not on file Active Problems Not on file Social History Date Tobacco Use Types Packs/Day [...] (1 of 2 - PCV13) INFLUENZA VACCINE 08/07/2019 Results Not on filefrom Last 3 Months Advance Directives Patient has advance care planning documents on file. For more information, please contact: [address] [address]
--- OUTSIDE RECORDS SUMMARY | 2019-03-12 08:14 | XMS REPORT | Continuity of Care Document ---
Author Organization Unknown Address Unknown Allergies Active Description Code Type Severity Reaction Onset Reported/Identified Relationship to Patient Clinical Status Yes No Known Drug Allergies [id number] Drug Allergy Unknown N/A 11/13/2012 Medications There [...] 11/13/2014 AUGUSTINA DELUCA MD Ot 562.10 02/04/2015 DANIELA FELIPE MD Ot 185 03/09/2015 MATTEO YOUSSEF, DANIELA [place] [...] 11/12/2015 Ot V72.81 11/12/2015 Ot 704.8 11/12/2015 DANIELA FELIPE MD Ot 185 11/12/2015 GERMAN GARZON DO Ot 562.10 11/12/2015 GERMAN GARZON DO Ot 571.8 11/12/2015 ANUSHA YOUSSEF, JEANMARIE Hatch Ot V72.84 11/12/2015 JEFRY DUFF DO Ot 706.2 11/12/2015 JEFRY DUFF DO Ot V72.63 11/12/2015 DUFFJEFRY BATEMAN DO Ot V72.81 11/12/2015 JEFRY DUFF DO Ot V72.84 11/12/2015 JEFRY DUFF DO Ot V74.8 11/12/2015 SANDRINE YOUSSEF, AUGUSTINA Colon Ot 185 11/12/2015 SANDRINE YOUSSEF, AUGUSTINA Colon Ot 562.10 11/12/2015 MATTEO YOUSSEF, DANIELA Penn Ot 185 11/12/2015 GERMAN GARZON DO Ot 786.50 11/12/2015 GERMAN GARZON DO Ot I73.9 11/12/2015 GERMAN GARZON DO Ot R06.00 11/12/2015 GERMAN GARZON DO Ot I73.9 11/12/2015 GERMAN GARZON DO Ot R06.00 11/12/2015 GERMAN GARZON DO [...] EXAMINATION 09/01/2018 JEFRY DUFF DO Ot V72.81 [id number] CARDIOVASCULAR 09/01/2018 JEFRY DUFF DO Ot V72.84 [...] Ot R06.00 DYSPNEA, UNSPECIFIED 09/01/2018 GERMAN GARZON DO, Ot I73.9 PERIPHERAL VASCULAR DISEASE, UNSPECIFIED 09/01/2018 GERMAN GARZON DO Ot R06.00 DYSPNEA, UNSPECIFIED 09/01/2018 GERMAN GARZON DO Ot R60.0 LOCALIZED EDEMA 09/01/2018 GERMAN GARZON DO, Ot I89.0 LYMPHEDEMA, NOT ELSEWHERE CLASSIFIED 09/06/2018 GERMAN GARZON DO Ot C61 MALIGNANT NEOPLASM OF PROSTATE 09/06/2018 GERMAN GARZON DO Ot K57.30 DVRTCLOS OF LG INT W/O PERFORATION OR AB 09/06/2018 GERMAN GARZON DO Ot N13.30 UNSPECIFIED HYDRONEPHROSIS 09/06/2018 GERMAN GARZON DO Ot R31.9 HEMATURIA, UNSPECIFIED 09/06/2018 GERMAN GARZON DO Ot R59.0 LOCALIZED ENLARGED LYMPH NODES 09/06/2018 GERMAN GARZON DO, Ot R60.0 LOCALIZED EDEMA 09/15/2018 MATTEO YOUSSEF, [...] V72.63 PRE-PROCEDURAL LABORATORY EXAMINATION 09/15/2018 JEFRY DUFF DO, Ot V72.81 [id number] CARDIOVASCULAR 09/15/2018 JEFRY DUFF DO Ot V72.84 [...] DYSPNEA, UNSPECIFIED 09/15/2018 GERMAN GARZON DO Ot I73.9 PERIPHERAL [...] LOCALIZED ENLARGED LYMPH NODES 09/15/2018 IRLANDA UMAÑA MD, Ot Z92.3 PERSONAL HISTORY OF IRRADIATION 09/15/2018 [...] LOCALIZED ENLARGED LYMPH NODES 09/15/2018 IRLANDA UMAÑA MD, Ot Z92.3 PERSONAL HISTORY OF IRRADIATION 09/18/2018 [...] EXAMINATION 09/19/2018 JEFRY DUFF DO Ot V72.81 [id number] CARDIOVASCULAR 09/19/2018 JEFRY DUFF DO Ot V72.84 [...] DYSPNEA, UNSPECIFIED 09/19/2018 GERMAN GARZON DO Ot R60.0 LOCALIZED EDEMA 09/19/2018 GERMAN GARZON DO, Ot I89.0 LYMPHEDEMA, NOT ELSEWHERE CLASSIFIED 09/19/2018 GERMAN GARZON DO Ot C61 MALIGNANT NEOPLASM OF PROSTATE 09/19/2018 GERMAN GARZON DO Ot K57.30 DVRTCLOS OF LG INT W/O PERFORATION OR AB 09/19/2018 GERMAN GARZON DO Ot N13.30 UNSPECIFIED HYDRONEPHROSIS 09/19/2018 GERMAN GARZON DO Ot R31.9 HEMATURIA, UNSPECIFIED 09/19/2018 GERMAN GARZON DO Ot R59.0 LOCALIZED ENLARGED LYMPH NODES 09/19/2018 GERMAN GARZON DO Ot R60.0 LOCALIZED EDEMA 09/19/2018 MALORIE YOUSSEF, TC [place] Ot Z01.818 ENCOUNTER FOR OTHER PREPROCEDURAL EXAMIN 09/21/2018 MALORIE YOUSSEF, TC [place] Ot C61 MALIGNANT NEOPLASM OF PROSTATE 09/21/2018 TC ESPANA MD Ot 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9 GASTRO-ESOPHAGEAL REFLUX DISEASE WITHOUT 11/14/2018 JEANMARIE TAVARES MD Ot K29.80 DUODENITIS WITHOUT BLEEDING 11/14/2018 JEANMARIE TAVARES MD Ot K44.9 DIAPHRAGMATIC HERNIA WITHOUT OBSTRUCTION 11/14/2018 JEANMARIE TAVARES MD Ot K57.30 DVRTCLOS OF LG INT W/O PERFORATION OR AB 11/14/2018 JEANMARIE TAVARES MD Ot R63.4 ABNORMAL WEIGHT LOSS 11/14/2018 JEANMARIE TAVARES MD Ot Z85.46 PERSONAL HISTORY OF MALIGNANT NEOPLASM O 11/14/2018 ANUSHA YOUSSEF, JEANMARIE Hatch Ot Z86.010 PERSONAL HISTORY OF COLONIC POLYPS 11/14/2018 ANUSHA YOUSSEF, JEANMARIE Hatch Ot Z87.891 PERSONAL [...] Z87.891 PERSONAL HISTORY OF NICOTINE DEPENDENCE 11/30/2018 TAVO VILLALOBOS ETIENNE K Ot G47.30 SLEEP APNEA, UNSPECIFIED 11/30/2018 TAVO VILLALOBOS ETIENNE K Ot G89.18 OTHER ACUTE POSTPROCEDURAL PAIN 11/30/2018 SAJAN VO DOA K Ot I10 ESSENTIAL (PRIMARY) HYPERTENSION 11/30/2018 TAVO VILLALOBOS ETIENNE K Ot N13.6 PYONEPHROSIS 11/30/2018 SAJAN VO DOA K Ot N39.0 URINARY TRACT INFECTION, SITE NOT SPECIF 11/30/2018 ETIENNE VO DO Ot T81.40XA INFECTION FOLLOWING A PROCEDURE, UNSPECI 11/30/2018 TAVO VILLALOBOS ETIENNE K Ot Z80.0 FAMILY HISTORY OF MALIGNANT NEOPLASM OF 11/30/2018 SAJAN VO DOA K Ot Z82.49 FAMILY HX OF ISCHEM HEART DIS AND OTH DI 11/30/2018 SAJAN VO DOA K Ot Z85.46 PERSONAL HISTORY OF MALIGNANT NEOPLASM O 11/30/2018 TAVO VILLALOBOS ETIENNE K Ot Z87.19 PERSONAL HISTORY OF OTHER DISEASES OF TH 11/30/2018 ETIENNE VO DO Ot Z87.891 PERSONAL HISTORY OF NICOTINE DEPENDENCE 11/30/2018 ETIENNE VO DO Kashif Ot Z90.49 ACQUIRED ABSENCE OF OTHER SPECIFIED PART 11/30/2018 ETIENNE VO DO Ot Z92.21 PERSONAL HISTORY OF ANTINEOPLASTIC CHEMO 11/30/2018 ETIENNE VO DO Ot Z96.0 PRESENCE OF UROGENITAL IMPLANTS 11/30/2018 SAJAN VO DOIsaiah Rowland Ot Z98.890 OTHER SPECIFIED POSTPROCEDURAL STATES 12/07/2018 [...] 12/11/2018 TC ESPANA MD Ot Z79.899 OTHER [facility] (CURRENT) DRUG THERAPY 12/11/2018 TC ESPANA MD [...] 12/12/2018 TC ESPANA MD Ot 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 12/12/2018 TC ESPANA MD [...] SCREENING FOR OTHER BACTER 12/15/2018 TC ESPANA MD Ot 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 12/15/2018 TC ESPANA MD Ot Z82.49 FAMILY HX OF ISCHEM HEART DIS AND OTH DI 12/15/2018 TC ESPANA MD, Ot Z87.891 PERSONAL HISTORY OF NICOTINE DEPENDENCE 12/15/2018 TC ESPANA MD Ot Z92.3 PERSONAL HISTORY OF IRRADIATION 12/22/2018 BRIAN COFFEY MD, Ot C61 MALIGNANT NEOPLASM OF PROSTATE 12/22/2018 BRIAN COFFEY MD Ot 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 12/22/2018 BRIAN COFFEY MD, Ot 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 12/22/2018 BRIAN COFFEY MD, Ot 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 12/22/2018 BRIAN COFFEY MD Ot E66.9 OBESITY, UNSPECIFIED 12/22/2018 BRIAN COFFEY MD Ot I10 ESSENTIAL (PRIMARY) HYPERTENSION 12/22/2018 BRIAN COFFEY MD Ot Z68.31 BODY MASS INDEX (BMI) 31.0-31.9, ADULT 12/22/2018 BRIAN COFFEY MD, Ot 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 12/22/2018 BRIAN COFFEY MD Ot Z87.891 PERSONAL HISTORY OF NICOTINE DEPENDENCE 12/27/2018 ALEXX MD, TORRES Ot C61 MALIGNANT NEOPLASM OF PROSTATE 12/27/2018 BRIAN COFFEY MD Ot 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 12/27/2018 BRIAN COFFEY MD Ot 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 12/27/2018 BRIAN COFFEY MD Ot 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 12/27/2018 BRIAN COFFEY MD Ot E66.9 OBESITY, UNSPECIFIED 12/27/2018 BRIAN COFFEY MD Ot I10 ESSENTIAL (PRIMARY) HYPERTENSION 12/27/2018 BRIAN COFFEY MD Ot Z68.31 BODY MASS INDEX (BMI) 31.0-31.9, ADULT 12/27/2018 BRIAN COFFEY MD Ot 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 12/27/2018 BRIAN COFFEY MD, Ot Z87.891 PERSONAL HISTORY OF NICOTINE DEPENDENCE 01/09/2019 GERMAN GARZON DO Ot J90 PLEURAL EFFUSION, NOT ELSEWHERE CLASSIFI 01/09/2019 GERMAN GARZON DO Ot K66.8 OTHER SPECIFIED DISORDERS OF PERITONEUM 01/09/2019 GARZONGERMAN BROWN DO Ot R18.8 OTHER ASCITES 01/09/2019 GERMAN GARZON DO Ot R59.0 LOCALIZED ENLARGED LYMPH NODES 01/11/2019 IRLANDA UMAÑA MD Ot C61 MALIGNANT NEOPLASM OF PROSTATE 01/11/2019 IRLANDA UMAÑA MD Ot C67.9 MALIGNANT NEOPLASM OF BLADDER, UNSPECIFI 01/11/2019 IRLANDA UMAÑA MD Ot 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 01/11/2019 IRLANDA UMAÑA MD Ot C77.5 SECONDARY AND UNSP MALIGNANT NEOPLASM OF 01/11/2019 IRLANDA UMAÑA MD Ot 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 01/11/2019 IRLANDA UMAÑA MD Ot 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 01/11/2019 IRLANDA UMAÑA MD Ot D63.8 ANEMIA IN OTHER CHRONIC DISEASES CLASSIF 01/11/2019 IRLANDA UMAÑA MD Ot E87.1 HYPO-OSMOLALITY AND HYPONATREMIA 01/11/2019 IRLANDA UMAÑA MD Ot E87.6 HYPOKALEMIA 01/11/2019 IRLANDA UMAÑA MD Ot G47.30 SLEEP APNEA, UNSPECIFIED 01/11/2019 IRLANDA UMAÑA MD Ot I10 ESSENTIAL (PRIMARY) HYPERTENSION 01/11/2019 IRLANDA UMAÑA MD Ot 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 01/11/2019 IRLANDA UMAÑA MD Ot I89.0 LYMPHEDEMA, NOT ELSEWHERE CLASSIFIED 01/11/2019 IRLANDA UMAÑA MD Ot J18.9 PNEUMONIA, UNSPECIFIED ORGANISM 01/11/2019 IRLANDA UMAÑA MD Ot 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0 FAMILY HISTORY OF MALIGNANT NEOPLASM OF 01/18/2019 LIDIA ISRAEL MD Ot Z82.49 FAMILY HX OF ISCHEM HEART DIS AND OTH DI 01/18/2019 LIDIA ISRAEL MD Ot Z85.46 PERSONAL HISTORY OF MALIGNANT NEOPLASM O 01/18/2019 LIDIA ISRAEL MD Ot Z85.51 PERSONAL HISTORY OF MALIGNANT NEOPLASM O 01/18/2019 LIDIA ISRAEL MD Ot Z86.711 PERSONAL HISTORY OF PULMONARY EMBOLISM 01/18/2019 LIDIA ISRAEL MD Ot Z87.19 PERSONAL HISTORY OF OTHER DISEASES OF TH 01/18/2019 LIDIA ISRAEL MD Ot Z87.891 PERSONAL HISTORY OF NICOTINE DEPENDENCE 01/18/2019 LIDIA ISRAEL MD Ot Z90.49 ACQUIRED ABSENCE OF OTHER SPECIFIED PART 01/18/2019 LIDIA ISRAEL MD Ot Z98.890 OTHER SPECIFIED POSTPROCEDURAL STATES 01/22/2019 LIDIA ISRAEL MD, Ot G47.30 SLEEP APNEA, UNSPECIFIED 01/22/2019 LIDIA ISRAEL MD Ot I10 ESSENTIAL (PRIMARY) HYPERTENSION 01/22/2019 LIDIA ISRAEL MD Ot R31.9 HEMATURIA, UNSPECIFIED 01/22/2019 LIDIA ISRAEL MD, Ot 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 OF ANTICOAGULANTS, INITIA 01/22/2019 LIDIA ISRAEL MD Ot 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 01/22/2019 LIDIA ISRAEL MD, Ot Z80.0 FAMILY HISTORY OF MALIGNANT NEOPLASM OF 01/22/2019 LIDIA ISRAEL MD, Ot Z82.49 FAMILY HX OF ISCHEM HEART DIS AND OTH DI 01/22/2019 LIDIA ISRAEL MD, Ot Z85.46 PERSONAL HISTORY OF MALIGNANT NEOPLASM O 01/22/2019 LIDIA ISRAEL MD, Ot Z85.51 PERSONAL HISTORY OF MALIGNANT NEOPLASM O 01/22/2019 LIDIA ISRAEL MD, Ot Z86.711 PERSONAL HISTORY OF PULMONARY EMBOLISM 01/22/2019 LIDIA ISRAEL MD, Ot Z87.19 PERSONAL HISTORY OF OTHER DISEASES OF TH 01/22/2019 LIDIA ISRAEL MD, Ot Z87.891 PERSONAL HISTORY OF NICOTINE DEPENDENCE 01/22/2019 LIDIA ISRAEL MD, Ot Z90.49 ACQUIRED ABSENCE OF OTHER SPECIFIED PART 01/22/2019 LIDIA ISRAEL MD, Ot Z98.890 OTHER SPECIFIED POSTPROCEDURAL STATES 01/24/2019 GERMAN GARZON DO, Ot J90 PLEURAL EFFUSION, NOT ELSEWHERE CLASSIFI 01/24/2019 GERMAN GARZON DO, Ot K66.8 OTHER SPECIFIED DISORDERS OF PERITONEUM 01/24/2019 GERMAN GARZON DO, Ot R18.8 OTHER ASCITES 01/24/2019 GERMAN GARZON DO, Ot R59.0 LOCALIZED ENLARGED LYMPH NODES 02/19/2019 GERMAN GARZON DO, Ot C61 MALIGNANT NEOPLASM OF PROSTATE 02/19/2019 GERMAN GARZON DO, Ot 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 02/19/2019 GERMAN GARZON DO, Ot I26.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 02/19/2019 GERMAN GARZON DO, Ot K21.9 GASTRO-ESOPHAGEAL REFLUX DISEASE WITHOUT 02/19/2019 GERMAN GARZON DO Ot 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 02/21/2019 PABOL THOMAS DO Ot R18.8 OTHER ASCITES 02/25/2019 GERMAN GARZON DO Ot C61 MALIGNANT NEOPLASM OF PROSTATE 02/25/2019 GERMAN GARZON DO Ot 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 02/25/2019 GERMAN GARZON DO Ot I26.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 02/25/2019 GERMAN GARZON DO Ot K21.9 GASTRO-ESOPHAGEAL REFLUX DISEASE WITHOUT 02/25/2019 GERMAN GARZON DO Ot 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 02/28/2019 PABLO THOMAS DO Ot R18.8 OTHER ASCITES Procedures Code Description Performed By Performed On [id number] INSPECTION OF GALLBLADDER , PERCUTANEOUS 09/19/2018 [id number] RESECTION OF GALLBLADDER, OPEN APPROACH 09/19/2018 [id number] ROBOTIC ASSISTED PROCEDURE OF TRUNK, PER 09/19/2018 [...] or plasma troponin i.cardiac measurement (mass/volume) - 11/08/18 21:39 Serum or plasma troponin i.cardiac measurement [...] - 09/15/18 00:17 Bacterial blood culture NG [facility] Blood lactic acid measurement (moles/volume) - 09/15/18 00:27 Blood lactic acid measurement (moles/volume) 1.51 mmol/L 0.50-2.00 Bacterial blood culture - 09/15/18 01:17 Bacterial blood culture NG [facility] Complete blood count (CBC) with automated white [...] resistant Staphylococcus aureus (MRSA) screening culture NEG [facility] Comprehensive metabolic panel - 01/08/19 17:24 Serum [...] or plasma urea nitrogen/creatinine mass ratio 15 NRG Serum or plasma creatinine measurement with calculation of estimated glomerular filtration rate > [facility] Serum or plasma glucose measurement (mass/volume) 167 [...] - 01/08/19 17:24 Bacterial blood culture NG NRG Bacterial blood culture - 01/08/19 17:31 Bacterial blood culture NG NRG PT panel in platelet poor plasma by [...] g/dL 3.2-4.5 CALCIUM CORRECTED 9.5 mg/dL 8.5-10.1 Bacterial blood culture - 01/09/19 15:50 Bacterial blood culture NG NRG Bacterial blood culture - 01/09/19 16:40 Bacterial blood culture NG NRG Activated partial thromboplastin time (aPTT) in platelet poor plasma bycoagulation assay - 01/09/19 19:40 Activated partial thromboplastin time (aPTT) in platelet poor plasma bycoagulation assay 71 s 24-35 Complete blood count (CBC) with automated white blood cell (WBC) differential - 01/10/19 04:40 Blood leukocytes automated count (number/volume) 10.3 10*3/uL 4.3-11.0 Blood erythrocytes automated count (number/volume) 3.68 10*6/uL 4.35-5.85 Venous blood hemoglobin measurement (mass/volume) 10.0 g/dL 13.3-17.7 Blood hematocrit (volume fraction) 31 % 40-54 Automated erythrocyte mean corpuscular volume 84 [foz_us] 80-99 Automated erythrocyte mean corpuscular hemoglobin (mass per erythrocyte) 27 pg 25-34 Automated erythrocyte mean corpuscular hemoglobin concentration measurement ( mass/volume) 33 g/dL 32-36 Automated erythrocyte distribution width ratio 16.6 % 10.0-14.5 Automated blood platelet count (count/volume) 364 10*3/uL 130-400 Automated blood platelet mean volume measurement 8.5 [foz_us] 7.4-10.4 Automated blood neutrophils/100 leukocytes 74 % 42-75 Automated blood lymphocytes/100 leukocytes 10 % 12-44 Blood monocytes/100 leukocytes 15 % 0-12 Automated blood eosinophils/100 leukocytes 0 % 0-10 Automated blood basophils/100 leukocytes 1 % 0-10 Blood neutrophils automated count (number/volume) 7.6 10*3 1.8-7.8 Blood lymphocytes automated count (number/volume) 1.1 10*3 1.0-4.0 Blood monocytes automated count (number/volume) 1.6 10*3 0.0-1.0 Automated eosinophil count 0.0 10*3/uL 0.0-0.3 Automated blood basophil count (count/volume) 0.1 10*3/uL 0.0-0.1 Activated partial thromboplastin time (aPTT) in platelet poor plasma bycoagulation assay - 01/10/19 04:40 Activated partial thromboplastin time (aPTT) in platelet poor plasma bycoagulation assay 64 s 24-35 Comprehensive metabolic panel - 01/10/19 04:40 Serum or plasma sodium measurement (moles/volume) 135 mmol/L 135-145 Serum or plasma potassium measurement (moles/volume) 3.3 mmol/L 3.6-5.0 Serum or plasma chloride measurement (moles/volume) 100 mmol/L 98-107 Carbon dioxide 26 mmol/L 21-32 Serum or plasma anion gap determination (moles/volume) 9 mmol/L 5-14 Serum or plasma urea nitrogen measurement (mass/volume) 14 mg/dL 7-18 Serum or plasma creatinine measurement (mass/volume) 0.80 mg/dL 0.60-1.30 Serum or plasma urea nitrogen/creatinine mass ratio 18 NRG Serum or plasma creatinine measurement with calculation of estimated glomerular filtration rate > NRG Serum or plasma glucose measurement (mass/volume) 119 mg/dL 70-105 Serum or plasma calcium measurement (mass/volume) 8.5 mg/dL 8.5-10.1 Serum or plasma total bilirubin measurement (mass/volume) 0.3 mg/dL 0.1-1.0 Serum or plasma alkaline phosphatase measurement (enzymatic activity/volume) 67 U/L 40-136 Serum or plasma aspartate aminotransferase measurement (enzymatic activity/ volume) 14 U/L 5-34 Serum or plasma alanine aminotransferase measurement (enzymatic activity/volume ) 7 U/L 0-55 Serum or plasma protein measurement (mass/volume) 5.8 g/dL 6.4-8.2 Serum or plasma albumin measurement (mass/volume) 2.7 g/dL 3.2-4.5 CALCIUM CORRECTED 9.5 mg/dL 8.5-10.1 Activated partial thromboplastin time (aPTT) in platelet poor plasma bycoagulation assay - 01/10/19 09:25 Activated partial thromboplastin time (aPTT) in platelet poor plasma bycoagulation assay 80 s 24-35 Activated partial thromboplastin time (aPTT) in platelet poor plasma bycoagulation assay - 01/10/19 15:36 Activated partial thromboplastin time (aPTT) in platelet poor plasma bycoagulation assay 67 s 24-35 Activated partial thromboplastin time (aPTT) in platelet poor plasma bycoagulation assay - 01/10/19 22:59 Activated partial thromboplastin time (aPTT) in platelet poor plasma bycoagulation assay 93 s 24-35 Activated partial thromboplastin time (aPTT) in platelet poor plasma bycoagulation assay - 01/11/19 04:55 Activated partial thromboplastin time (aPTT) in platelet poor plasma bycoagulation assay 87 s 24-35 Comprehensive metabolic panel - 01/11/19 04:55 Serum or plasma sodium measurement (moles/volume) 139 mmol/L 135-145 Serum or plasma potassium measurement (moles/volume) 3.5 mmol/L 3.6-5.0 Serum or plasma chloride measurement (moles/volume) 102 mmol/L 98-107 Carbon dioxide 27 mmol/L 21-32 Serum or plasma anion gap determination (moles/volume) 10 mmol/L 5-14 Serum or plasma urea nitrogen measurement (mass/volume) 10 mg/dL 7-18 Serum or plasma creatinine measurement (mass/volume) 0.74 mg/dL 0.60-1.30 Serum or plasma urea nitrogen/creatinine mass ratio 14 NRG Serum or plasma creatinine measurement with calculation of estimated glomerular filtration rate > NRG Serum or plasma glucose measurement (mass/volume) 108 mg/dL 70-105 Serum or plasma calcium measurement (mass/volume) 8.1 mg/dL 8.5-10.1 Serum or plasma total bilirubin measurement (mass/volume) 0.3 mg/dL 0.1-1.0 Serum or plasma alkaline phosphatase measurement (enzymatic activity/volume) 67 U/L 40-136 Serum or plasma aspartate aminotransferase measurement (enzymatic activity/ volume) 13 U/L 5-34 Serum or plasma alanine aminotransferase measurement (enzymatic activity/volume ) 8 U/L 0-55 Serum or plasma protein measurement (mass/volume) 5.5 g/dL 6.4-8.2 Serum or plasma albumin measurement (mass/volume) 2.5 g/dL 3.2-4.5 CALCIUM CORRECTED 9.3 mg/dL 8.5-10.1 Complete urinalysis with reflex to culture - 01/18/19 20:06 Urine color determination BROWN NRG Urine clarity determination VERY CLOUDY NRG Urine pH measurement by test strip 6 5-9 Specific gravity of urine by test strip 1.020 1.016- 1.022 Urine protein assay by test strip, semi-quantitative 3+ NEGATIVE Urine glucose detection by automated test strip NEGATIVE NEGATIVE Erythrocytes detection in urine sediment by light microscopy 5+ NEGATIVE Urine ketones detection by automated test strip NEGATIVE NEGATIVE Urine nitrite detection by test strip NEGATIVE NEGATIVE Urine total bilirubin detection by test strip NEGATIVE NEGATIVE Urine urobilinogen measurement by automated test strip (mass/volume) NORMAL NORMAL Urine leukocyte esterase detection by dipstick 2+ NEGATIVE Automated urine sediment erythrocyte count by microscopy (number/high power field) TNTC NRG Automated urine sediment leukocyte count by [...] culture YES NRG Bacterial urine culture - 01/18/19 20:06 Bacterial urine culture NG NRG Complete blood count (CBC) with automated white blood cell (WBC) differential - 01/18/19 20:45 Blood leukocytes automated count (number/volume) 5.3 10*3/uL 4.3-11.0 Blood erythrocytes automated count (number/volume) 4.03 10*6/uL 4.35-5.85 Venous blood hemoglobin measurement (mass/volume) 10.8 g/dL 13.3-17.7 Blood hematocrit (volume fraction) 34 % 40-54 Automated erythrocyte mean corpuscular volume 83 [foz_us] 80-99 Automated erythrocyte mean corpuscular hemoglobin (mass per erythrocyte) 27 pg 25-34 Automated erythrocyte mean corpuscular hemoglobin concentration measurement ( mass/volume) 32 g/dL 32-36 Automated erythrocyte distribution width ratio 16.9 % 10.0-14.5 Automated blood platelet count (count/volume) 319 10*3/uL 130-400 Automated blood platelet mean volume measurement 8.1 [foz_us] 7.4-10.4 Automated blood neutrophils/100 leukocytes 62 % 42-75 Automated blood lymphocytes/100 leukocytes 19 % 12-44 Blood monocytes/100 leukocytes 18 % 0-12 Automated blood eosinophils/100 leukocytes 0 % 0-10 Automated blood basophils/100 leukocytes 1 % 0-10 Blood neutrophils automated count (number/volume) 3.2 10*3 1.8-7.8 Blood lymphocytes automated count (number/volume) 1.0 10*3 1.0-4.0 Blood monocytes automated count (number/volume) 0.9 10*3 0.0-1.0 Automated eosinophil count 0.0 10*3/uL 0.0-0.3 Automated blood basophil count (count/volume) 0.1 10*3/uL 0.0-0.1 Body fluid cell count - 02/20/19 12:50 Specimen source identification of body fluid PERITON NRG Evaluation of color of body fluid PALE YELLOW NRG Determination of appearance of body fluid MOD CLDY NRG Body fluid leukocytes count (number/volume) 345 /uL NRG Body fluid erythrocytes count (number/volume) 2400 /uL NRG Manual body fluid polymorphonuclear cells/100 leukocytes 67 % NRG Manual body fluid mononuclear cells/100 leukocytes 1 % NRG Manual body fluid lymphocytes/100 leukocytes 30 % NRG Other cells/100 leukocytes in body fluid by manual count 2 % NRG Glucose body fluid - 02/20/19 12:50 Glucose body fluid 111 mg/dL NRG Body fluid total protein measurement - 02/20/19 12:50 Body fluid total protein measurement 5.9 g/dL NRG Body fluid/serum or plasma lactate dehydrogenase (LDH) ratio - 02/20/19 12:50 Body fluid/serum or plasma lactate dehydrogenase (LDH) ratio 160 U/ L NRG Amylase body fluid - 02/20/19 12:50 Amylase body fluid 13 U/L NRG Creatinine body fluid - 02/20/19 12:50 Creatinine body fluid 0.89 mg/dL NRG Bacteria identification in isolate by anaerobe culture - 02/20/19 12:50 Bacteria identification in isolate by anaerobe culture NOANA NRG Gram stain microscopy - 02/20/19 12:50 Gram stain microscopy No bacteria seen NRG AFB CULT T STAIN TISSUE/FLUID - 02/20/19 12:50 Bacterial body fluid culture - 02/20/19 12:50 Bacterial body fluid culture NG NRG C FUNGUS SPUTUM FLUID TISSUE - 02/20/19 12:50 FTX;REPORTABLE CURRENT REPORT: NEGATIVE NRG FREE TEXT ENTRY 2 (FINAL REQUIRES 4 WEEKS) NRG Encounters ACCT No. Visit Date/Time Discharge Status Pt. Type Provider Facility Loc./Unit Complaint [id number] 02/20/2019 11:30:00 02/20/2019 13:45:00 DIS Outpatient PABLO THOMAS DO [facility] SDC R18.8 ASCITES [id number] 02/19/2019 06:51:00 02/19/2019 23:59:59 CLS Outpatient GERMAN GARZON DO [facility] RAD ASCITES,MALIGNANT [id number] 02/14/2019 13:28:00 02/14/2019 23:59:59 CLS Outpatient BRIAN COFFEY MD [facility] ONC [id number] 01/18/2019 19:11:00 01/18/2019 21:12:00 DIS Emergency LIDIA ISRAEL MD [facility] ER BLOOD IN URINE [id number] 01/09/2019 15:28:00 01/11/2019 14:01:00 DIS Inpatient IRLANDA UMAÑA MD [facility] 4TH SADDLE EMBOLISM, METASTATIC CA,BILAT PNUEMONIA [id number] 01/09/2019 12:15:00 01/09/2019 23:59:59 CLS Outpatient GERMAN GARZON DO [facility] RAD ELEVATED D-DIMER [id number] 01/08/2019 16:33:00 01/08/2019 23:59:59 CLS Outpatient GERMAN GARZON DO [facility] RAD CHEST PAIN [id number] 12/11/2018 10:47:00 12/11/2018 15:15:00 DIS Outpatient TC ESPANA MD [facility] SDC PROSTATE CA [id number] 12/07/2018 05:39:00 12/07/2018 14:25:00 DIS Outpatient TC ESPANA MD [facility] PREOP PROSTATE CANCER [id number] 11/14/2018 06:48:00 11/14/2018 09:10:00 DIS Outpatient JEANMARIE TAVARES MD [facility] ENDO SCREENING, ADENOCARCINOMA OF ?PRIMARY [id number] 11/09/2018 06:23:00 11/09/2018 10:43:00 DIS Outpatient JEANMARIE TAVARES MD [facility] PREOP COLONOSCOPY/EGD [id number] 09/21/2018 20:57:00 09/22/2018 01:35:00 DIS Emergency ETIENNE VO DO [facility] ER POST GALL BLADDER SURGERY COMPLICATIONS [id number] 09/19/2018 09:01:00 09/21/2018 11:33:00 DIS Inpatient TC ESPANA MD [facility] 4TH CHOLELITHIASIS [id number] 09/18/2018 10:38:00 09/18/2018 10:54:00 DIS Outpatient TC ESPANA MD [facility] PREOP CHLELITHIASIS [id number] 09/14/2018 21:34:00 09/15/2018 18:00:00 DIS Outpatient CHASIDY YOUSSEF, IRLANDA Rowland [facility] 4TH CHEST PAIN,N/V,METS PROSTATE CA [id number] 09/04/2018 12:01:00 09/04/2018 23:59:59 CLS Outpatient GERMAN GARZON DO [facility] RAD CA PROSTATE, HEMATURIA [id number] 11/12/2015 13:52:00 11/12/2015 23:59:59 CLS Outpatient GERMAN GARZON DO [facility] RAD LYMPHODEMA [id number] 10/16/2015 09:18:00 10/16/2015 23:59:59 CLS Outpatient GERMAN GARZON DO [facility] RAD EDEMA LEFT CALF AND FOOT [id number] 09/09/2015 09:16:00 09/09/2015 23:59:59 CLS Outpatient GERMAN GARZON DO [facility] RAD DYSPNEA,CLAUDICATION [id number] 09/05/2015 11:04:00 09/05/2015 23:59:59 CLS Outpatient GERMAN GARZON DO [facility] RAD DYSPNEA, CLAUDICATION , SYMPTOM [id number] 07/22/2015 14:20:00 07/22/2015 23:59:59 CLS Outpatient GERMAN GARZON DO [facility] CARD CHEST PAIN [id number] 03/10/2015 00:08:00 03/10/2015 23:59:59 CLS Preadmit DANIELA FELIPE MD [facility] ONC [id number] 12/09/2014 09:50:00 03/09/2015 00:01:00 DIS Outpatient DANIELA FELIPE MD [facility] ONC [id number] 10/23/2014 12:05:00 10/23/2014 23:59:59 CLS Outpatient AUGUSTINA DELUCA MD [facility] CARD PROSTATE CANCER [id number] 01/24/2014 06:15:00 01/24/2014 11:42:00 DIS Outpatient JEFRY DUFF DO [facility] SDC CYST ON BACK [id number] 01/23/2014 09:44:00 01/23/2014 23:59:59 CLS Outpatient JEFRY DUFF DO [facility] PREOP CYST ON BACK [id number] 06/12/2013 07:48:00 06/12/2013 09:55:00 DIS Outpatient JEANMARIE TAVARES MD [facility] SDC SCREENING [id number] 06/07/2013 07:15:00 06/07/2013 23:59:59 CLS Outpatient JEANMARIE TAVARES MD [facility] PREOP SCREENING [id number] 05/22/2013 08:14:00 05/22/2013 23:59:59 CLS Outpatient GERMAN GARZON DO [facility] RAD LT LOWER QUAD PAIN [id number] 05/21/2013 09:04:00 05/21/2013 23:59:59 CLS Outpatient DANIELA FELIPE MD [facility] ONC [id number] 01/17/2013 16:18:00 Document Registration [id number] 12/22/2012 08:48:00 Document Registration [id number] 11/24/2012 06:00:00 Document Registration [id number] 11/13/2012 15:29:00 Document Registration [id number] 09/12/2012 08:50:00 Document Registration [id number] 08/25/2012 11:16:00 Document Registration
[2019-03-12 09:16] VITALS: BP 116/81
--- NOTE | 2019-03-12 09:17 | Diagnostic Imaging Report ---
PROCEDURE: US Abdomen, limited. TECHNIQUE: Multiple realtime grayscale images were obtained over the abdomen in various projections. INDICATION: Ascites. FINDINGS: Imaging of bilateral upper and lower quadrants was performed. Moderate ascites is present. Marking was made in the right lower quadrant. Skin surface to the center of the fluid collections approximately 5.5 cm. IMPRESSION: Ascites. Marking was made in the right lower quadrant for paracentesis. Dictated by: Dictated on workstation # [id number]
== END 2019-03-12 09:23 | disposition home or self-care (01) ==
LOC: EDUNIT# 07:19 → ER 07:20
DX: R18.8 Other ascites (principal); C61 Malignant neoplasm of prostate; G47.30 Sleep apnea, unspecified; I10 Essential (primary) hypertension; Z87.19 Personal history of other diseases of the digestive system; Z90.49 Acquired absence of other specified parts of digestive tract; Z92.21 Personal history of antineoplastic chemotherapy; Z80.0 Family history of malignant neoplasm of digestive organs; Z82.49 Family history of ischemic heart disease and other diseases of the circulatory system; Z85.51 Personal history of malignant neoplasm of bladder; Z79.01 Long term (current) use of anticoagulants; Z87.891 Personal history of nicotine dependence; Z96.0 Presence of urogenital implants; Z86.711 Personal history of pulmonary embolism
CPT/HCPCS: 76705

== ENCOUNTER 2019-03-12 09:52 | Outpatient (CLI) | payer MEDICARE ==
[~2019-03-12] VITALS: Ht 182.9 cm; Wt 113.4 kg
[2019-03-12 09:25] VITALS: BP 128/87
[2019-03-12] MEDS ORDERED: morphine INJ 10 MG/ML 1ML (SYR OR VIAL) ONE (10:23)
[2019-03-12] MEDS ORDERED: morphine INJ 10 MG/ML 1ML (SYR OR VIAL) IVP STA (10:23)
--- NOTE | 2019-03-12 20:58 | OPERATIVE REPORT ---
DATE OF SERVICE: 03/12/2019 PREOPERATIVE DIAGNOSIS: Malignant ascites. POSTOPERATIVE DIAGNOSIS: Malignant ascites, pending pathology. PROCEDURE PERFORMED: Paracentesis with ultrasound guidance. SURGEON: Jose Alejandro Sarah DO. BRIDGE BUILDER: None. ANESTHESIA: Local lidocaine. BLOOD LOSS: Scant. SPECIMENS: Approximately 6 L of yellowish milky-appearing fluid that was removed. FLUIDS: None. POSTOPERATIVE CONDITION: Stable. INDICATION FOR PROCEDURE: The patient is a 78-year-old male, who presented to the emergency room with complaints of abdominal swelling and difficulty breathing. History of malignant ascites, previously drained with paracentesis and needed to get this drained so he could breathe better not having abdominal pain. FINDINGS: The patient had 6 liters of yellow milky fluid removed and sent to pathology. PROCEDURE NOTE: After informed consent was obtained, the patient was down in the same day surgery in the preoperative area. Ultrasound was in the room. He was sterilely prepped and draped in normal fashion. Local lidocaine was used to infiltrate the skin. I then made a small stab incision with #11 blade and then advanced the needle under ultrasound guidance, watched go through the abdomen into the fluid pocket, immediately got a good flash of fluid, removed the needle and syringe and advanced the catheter and then hooked up to negative pressure catheter, got out approximately 6 liters of yellowish, milky-looking fluid. The patient felt much better and was breathing easier and his abdomen was soft at the end. The catheter was removed, pressure held and a Band-Aid placed and patient then transferred and sent home in stable condition. Job ID: [id number] DocumentID: [id number] Dictated Date: 03/12/2019 14:22:05 Treasury Accountant Date: 03/12/2019 20:57:55 Dictated By: JOSE ALEJANDRO SARAH DO
[2019-03-19] MEDS ORDERED: ONDA8TAB13 PO ×2 (13:44)
[2019-03-19] MEDS ORDERED: FAMO20TA3 PO ×2 (13:44)
--- NOTE | 2019-03-26 11:19 | RADIOLOGY REPORT ---
NAME: [facility] REC#: [id number] PT STATUS: TJ DRUMMOND : 1940 PHYSICIAN: PABLO THOMAS DO ADMIT DATE: 03/12/19/[facility] [place] CORRECT[place] Signed Date of Exam:03/12/19 US GUIDANCE NEEDLE PLACEMENT [id number] Indication: Ascites. Ultrasound guidance was provided for Dr. Thomas during performance of a paracentesis. Images demonstrate a moderate amount of ascites. Reportedly approximately 6 L was drained. Impression: Ultrasound guidance for paracentesis for Dr. Thomas, as described. Dictated by: Dictated on workstation # [id number] Dict: 03/12/19 1310 Trans: 03/12/19 1542 [facility], [place] [id number] Interpreted by: ELEAZAR VILLA MD Electronically signed by: ELEAZAR VILLA MD 03/12/[address] [facility]
== END 2019-03-12 13:05 | disposition home or self-care (01) ==
LOC: SDC 09:52
PROVIDERS: ATTEND Surgery
DX: C80.1 Malignant (primary) neoplasm, unspecified (principal); R18.0 Malignant ascites
CPT/HCPCS: 49082; 49083; 76942; 96374

== ENCOUNTER 2019-03-15 13:01 | Outpatient (RCR) | payer MEDICARE ==
[2018-12-27 13:18] LABS: BASOPHILS % (AUTO) 0 % (0-10); EOSINOPHILS % (AUTO) 0 % (0-10); HEMATOCRIT 33 % (40-54); HEMOGLOBIN 10.7 G/DL (13.3-17.7); LYMPHOCYTES # (AUTO) 0.7 X 10^3 (1.0-4.0); LYMPHOCYTES % (AUTO) 16 % (12-44); MEAN CORPUSCULAR HEMOGLOBIN 27 PG (25-34); MEAN CORPUSCULAR HGB CONC 33 G/DL (32-36); MEAN CORPUSCULAR VOLUME 83 FL (80-99); MEAN PLATELET VOLUME 8.2 FL (7.4-10.4); MONOCYTES # (AUTO) 0.2 X 10^3 (0.0-1.0); MONOCYTES % (AUTO) 6 % (0-12); NEUTROPHILS # (AUTO) 3.1 X 10^3 (1.8-7.8); NEUTROPHILS % (AUTO) 77 % (42-75); PLATELET COUNT 70 10^3/uL (130-400); RED CELL DISTRIBUTION WIDTH 14.9 % (10.0-14.5)
[2018-12-27 13:41] LABS: ALANINE AMINOTRANSFERASE 10 U/L (0-55); ALKALINE PHOSPHATASE 67 U/L (40-136); BILIRUBIN,TOTAL 0.3 MG/DL (0.1-1.0); BUN/CREATININE RATIO 15; CALCIUM 8.7 MG/DL (8.5-10.1); CARBON DIOXIDE 26 MMOL/L (21-32); CHLORIDE 99 MMOL/L (98-107); CREATININE SERUM 0.84 MG/DL (0.60-1.30); GFR ESTIMATED > 60; GLUCOSE 109 MG/DL (70-105); POTASSIUM 3.6 MMOL/L (3.6-5.0); SODIUM 135 MMOL/L (135-145); TOTAL PROTEIN 6.3 GM/DL (6.4-8.2)
[2019-01-03 08:58] LABS: BASOPHILS % (AUTO) 1 % (0-10); EOSINOPHILS # (AUTO) 0.1 10^3/uL (0.0-0.3); EOSINOPHILS % (AUTO) 2 % (0-10); HEMATOCRIT 34 % (40-54); HEMOGLOBIN 10.9 G/DL (13.3-17.7); LYMPHOCYTES # (AUTO) 0.7 X 10^3 (1.0-4.0); LYMPHOCYTES % (AUTO) 21 % (12-44); MEAN CORPUSCULAR HEMOGLOBIN 27 PG (25-34); MEAN CORPUSCULAR HGB CONC 32 G/DL (32-36); MEAN CORPUSCULAR VOLUME 84 FL (80-99); MEAN PLATELET VOLUME 8.3 FL (7.4-10.4); MONOCYTES # (AUTO) 0.6 X 10^3 (0.0-1.0); MONOCYTES % (AUTO) 19 % (0-12); NEUTROPHILS # (AUTO) 1.8 X 10^3 (1.8-7.8); NEUTROPHILS % (AUTO) 57 % (42-75); PLATELET COUNT 577 10^3/uL (130-400); RED CELL DISTRIBUTION WIDTH 15.8 % (10.0-14.5); WHITE BLOOD COUNT 3.2 10^3/uL (4.3-11.0)
[2019-01-03 09:15] LABS: BUN/CREATININE RATIO 16; CALCIUM 8.8 MG/DL (8.5-10.1); CARBON DIOXIDE 27 MMOL/L (21-32); CHLORIDE 100 MMOL/L (98-107); CREATININE SERUM 0.88 MG/DL (0.60-1.30); GFR ESTIMATED > 60; GLUCOSE 126 MG/DL (70-105); POTASSIUM 3.6 MMOL/L (3.6-5.0); SODIUM 139 MMOL/L (135-145)
[2019-01-17 11:42] LABS: BASOPHILS # (AUTO) 0.1 10^3/uL (0.0-0.1); BASOPHILS % (AUTO) 1 % (0-10); EOSINOPHILS % (AUTO) 0 % (0-10); HEMATOCRIT 35 % (40-54); HEMOGLOBIN 11.1 G/DL (13.3-17.7); LYMPHOCYTES # (AUTO) 0.9 X 10^3 (1.0-4.0); LYMPHOCYTES % (AUTO) 16 % (12-44); MEAN CORPUSCULAR HEMOGLOBIN 27 PG (25-34); MEAN CORPUSCULAR HGB CONC 32 G/DL (32-36); MEAN CORPUSCULAR VOLUME 84 FL (80-99); MEAN PLATELET VOLUME 8.5 FL (7.4-10.4); MONOCYTES # (AUTO) 0.8 X 10^3 (0.0-1.0); MONOCYTES % (AUTO) 15 % (0-12); NEUTROPHILS # (AUTO) 3.6 X 10^3 (1.8-7.8); NEUTROPHILS % (AUTO) 67 % (42-75); PLATELET COUNT 366 10^3/uL (130-400); RED CELL DISTRIBUTION WIDTH 17.1 % (10.0-14.5); WHITE BLOOD COUNT 5.4 10^3/uL (4.3-11.0)
[2019-01-17 12:00] LABS: ALANINE AMINOTRANSFERASE 8 U/L (0-55); ALBUMIN 2.9 GM/DL (3.2-4.5); ALKALINE PHOSPHATASE 59 U/L (40-136); BILIRUBIN,TOTAL 0.2 MG/DL (0.1-1.0); BUN/CREATININE RATIO 18; CALCIUM 8.1 MG/DL (8.5-10.1); CARBON DIOXIDE 27 MMOL/L (21-32); CHLORIDE 100 MMOL/L (98-107); CREATININE SERUM 0.89 MG/DL (0.60-1.30); GFR ESTIMATED > 60; GLUCOSE 127 MG/DL (70-105); POTASSIUM 3.7 MMOL/L (3.6-5.0); SODIUM 136 MMOL/L (135-145); TOTAL PROTEIN 6.2 GM/DL (6.4-8.2)
[~2019-03-15] VITALS: Ht 177.8 cm; Wt 100.7 kg
[~2019-03-15 13:01] MED LIST changes: +CISPLATIN IV SCH; +DEGARELIX ACETATE 80 MG SQ SCH; +FOSAPREPITANT DIMEGLUMINE 150 MG in NS (IVPB) CANCER CENTER ONLY 150 ML IV SCH; +GEMCITABINE HCL IV SCH; +MAGNESIUM SULFATE IV SCH; +MANNITOL IV SCH; +NS IV 1000 ML (CANCER CTR) IV SCH; +PALONOSETRON HCL 0.25 MG, DEXAMETHASONE INJECTION 10 MG in NS (IVPB) CANCER CENTER 50 ML IV SCH; +[UNRECOGNIZED DRUG - OTHER] IV SCH; +[UNRECOGNIZED DRUG - OTHER] IV SCH
[2019-03-15 13:22] LABS: BASOPHILS % (AUTO) 0 % (0-10); EOSINOPHILS % (AUTO) 0 % (0-10); HEMATOCRIT 34 % (40-54); HEMOGLOBIN 10.4 G/DL (13.3-17.7); LYMPHOCYTES % (AUTO) 10 % (12-44); MEAN CORPUSCULAR HEMOGLOBIN 26 PG (25-34); MEAN CORPUSCULAR HGB CONC 31 G/DL (32-36); MEAN CORPUSCULAR VOLUME 83 FL (80-99); MEAN PLATELET VOLUME 8.2 FL (7.4-10.4); MONOCYTES # (AUTO) 0.8 X 10^3 (0.0-1.0); MONOCYTES % (AUTO) 9 % (0-12); NEUTROPHILS % (AUTO) 81 % (42-75); PLATELET COUNT 579 10^3/uL (130-400); RED CELL DISTRIBUTION WIDTH 16.4 % (10.0-14.5); WHITE BLOOD COUNT 9.8 10^3/uL (4.3-11.0)
[2019-03-15 13:45] LABS: ALANINE AMINOTRANSFERASE 8 U/L (0-55); ALBUMIN 2.4 GM/DL (3.2-4.5); ALKALINE PHOSPHATASE 89 U/L (40-136); BILIRUBIN,TOTAL 0.2 MG/DL (0.1-1.0); BUN/CREATININE RATIO 14; CALCIUM 8.6 MG/DL (8.5-10.1); CARBON DIOXIDE 30 MMOL/L (21-32); CHLORIDE 98 MMOL/L (98-107); CREATININE SERUM 1.06 MG/DL (0.60-1.30); GFR ESTIMATED > 60; GLUCOSE 105 MG/DL (70-105); POTASSIUM 4.3 MMOL/L (3.6-5.0); SODIUM 135 MMOL/L (135-145); TOTAL PROTEIN 5.7 GM/DL (6.4-8.2)
[2019-03-19] MEDS ORDERED: TRIA1TAB3 PO (13:44)
[2019-03-19] MEDS ORDERED: FAMO20TA3 PO (13:44)
[2019-03-19] MEDS ORDERED: ONDA8TAB13 PO (13:44)
[2019-03-21] MEDS ORDERED: BENZ100C18 PO (08:15)
[2019-03-21] MEDS ORDERED: TRAZ-189 PO (08:15)
== END 2019-03-21 | disposition home or self-care (01) ==
LOC: ONC 13:01
PROVIDERS: ATTEND Internal Medicine Hematology & Oncology
DX: C67.8 Malignant neoplasm of overlapping sites of bladder (principal); C77.4 Secondary and unspecified malignant neoplasm of inguinal and lower limb lymph nodes; C78.89 Secondary malignant neoplasm of other digestive organs; C61 Malignant neoplasm of prostate; I10 Essential (primary) hypertension; E66.9 Obesity, unspecified; Z68.31 Body mass index [BMI] 31.0-31.9, adult; Z87.891 Personal history of nicotine dependence; Z79.899 Other long term (current) drug therapy
CPT/HCPCS: 36415; 36591; 80048; 80053; 85025; 96523; 99214

== ENCOUNTER 2019-03-19 05:48 | Outpatient (CLI) | payer MEDICARE ==
[~2019-03-19] VITALS: Ht 182.9 cm; Wt 95.3 kg
[~2019-03-19 05:48] MED LIST changes: -CISPLATIN IV SCH; -DEGARELIX ACETATE 80 MG SQ SCH; -FOSAPREPITANT DIMEGLUMINE 150 MG in NS (IVPB) CANCER CENTER ONLY 150 ML IV SCH; -GEMCITABINE HCL IV SCH; -MAGNESIUM SULFATE IV SCH; -MANNITOL IV SCH; -NS IV 1000 ML (CANCER CTR) IV SCH; -PALONOSETRON HCL 0.25 MG, DEXAMETHASONE INJECTION 10 MG in NS (IVPB) CANCER CENTER 50 ML IV SCH; -[UNRECOGNIZED DRUG - OTHER] IV SCH; -[UNRECOGNIZED DRUG - OTHER] IV SCH
[2019-03-19] MEDS ORDERED: TRIA1TAB3 PO (13:44)
[2019-03-19] MEDS ORDERED: FAMO20TA3 PO (13:44)
[2019-03-19] MEDS ORDERED: ONDA8TAB13 PO (13:44)
== END 2019-03-19 14:20 | disposition home or self-care (01) ==
LOC: PREOP 05:48
PROVIDERS: ATTEND Obstetrics & Gynecology
DX: Z01.818 Encounter for other preprocedural examination (principal)

== ENCOUNTER 2019-03-21 06:57 | Day surgery (SDC) | payer MEDICARE ==
[~2019-03-21] VITALS: Ht 182.9 cm; Wt 94.0 kg
[2019-03-21] VITALS (9 sets, daily range): BP systolic 106–135; BP diastolic 70–80
[~2019-03-21 06:57] MED LIST changes: +FAMO20TA3 PO; +ONDA8TAB13 PO
--- OUTSIDE RECORDS SUMMARY | 2019-03-21 07:06 | XMS REPORT | Clinical Summary ---
Author Author [facility] Organization [facility] Address Unknown Phone Unavailable Care Team Providers Care Supervisor Coal Handling Name Role Phone PCP Unavailable Source Comments Some departments are not documenting in the electronic medical record. If you do not see the information that you expected, contact Release of Information in the Health Information Management department at [phone] for further assistance in locating additional records.[facility] Allergies Not on File Medications Not [...] on file. For more information, please contact: [address] [address]
--- OUTSIDE RECORDS SUMMARY | 2019-03-21 07:08 | XMS REPORT | Continuity of Care Document ---
Author Organization Unknown Address Unknown Allergies Active Description Code Type Severity Reaction Onset Reported/Identified Relationship to Patient Clinical Status Yes No Known Drug Allergies [id number] Drug Allergy Unknown N/A 11/13/2012 Medications There [...] EXAMINATION 09/01/2018 JEFRY DUFF DO Ot V72.81 SYEN-HEW-LGBRMKQNL CARDIOVASCULAR 09/01/2018 JEFRY DUFF DO Ot V72.84 [...] EXAMINATION 09/15/2018 JEFRY DUFF DO, Ot V72.81 MWUN-LPS-HTVRJMOKH CARDIOVASCULAR 09/15/2018 JEFRY DUFF DO Ot V72.84 [...] EXAMINATION 09/19/2018 JEFRY DUFF DO Ot V72.81 MVII-BVJ-HNSCWKZLK CARDIOVASCULAR 09/19/2018 JEFRY DUFF DO Ot V72.84 [...] OF INTEST, PART UNSP, W/O PERF 09/21/2018 MALOREI YOUSSEF, TC [place] Ot K80.00 CALCULUS OF [...] EXAMINATION 09/21/2018 JEFRY DUFF DO Ot V72.81 VCXX-WNA-[id number] CARDIOVASCULAR 09/21/2018 JEFRY DUFF DO Ot V72.84 [...] I73.9 PERIPHERAL VASCULAR DISEASE, UNSPECIFIED 09/21/2018 GERMAN GAROZN DO Ot R06.00 DYSPNEA, UNSPECIFIED 09/21/2018 GERMAN [...] Z87.891 PERSONAL HISTORY OF NICOTINE DEPENDENCE 11/20/2018 JEANAMRIE TAVARES MD Ot C77.4 SEC AND UNSP [...] 12/11/2018 TC ESPANA MD Ot Z79.899 OTHER INTERMEDIATE (CURRENT) DRUG THERAPY 12/11/2018 TC ESPANA MD [...] 12/12/2018 TC ESPANA MD Ot Z79.899 OTHER HOOKER LASTER (CURRENT) DRUG THERAPY 12/12/2018 TC ESPANA MD [...] 12/15/2018 TC ESPANA MD Ot Z79.899 OTHER HOOKER LASTER (CURRENT) DRUG THERAPY 12/15/2018 TC ESPANA MD [...] 12/22/2018 BRIAN COFFEY MD, Ot Z79.899 OTHER HOOKER LASTER (CURRENT) DRUG THERAPY 12/22/2018 BRIAN COFFEY MD [...] 12/27/2018 BRIAN COFFEY MD Ot Z79.899 OTHER HOOKER LASTER (CURRENT) DRUG THERAPY 12/27/2018 BRIAN COFFEY MD, [...] ADVERSE EFFECT OF ANTICOAGULANTS, INITIA 01/18/2019 LIDIA ISRAEL MD Ot Z79.01 HOOKER LASTER (CURRENT) USE OF ANTICOAGULANT 01/18/2019 LIDIA ISRAEL [...] INITIA 01/22/2019 LIDIA ISRAEL MD Ot Z79.01 HOOKER LASTER (CURRENT) USE OF ANTICOAGULANT 01/22/2019 LIDIA ISRAEL [...] Ot K21.9 GASTRO-ESOPHAGEAL REFLUX DISEASE WITHOUT 02/19/2019 GARZON GERMAN VILLALOBOS Ot 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 02/20/2019 DELCELESTE DO, PABLO B Ot R18.8 OTHER ASCITES 02/21/2019 WILLIAM DO, PABLO B Ot R18.8 OTHER ASCITES 02/25/2019 GARZONGERMAN PUCKETT DO Ot C61 MALIGNANT NEOPLASM OF PROSTATE 02/25/2019 GARZON DO, GERMAN [place] Ot 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 02/25/2019 GERMAN GARZON DO Ot 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.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 02/25/2019 GERMAN GARZON DO Ot K21.9 GASTRO-ESOPHAGEAL REFLUX DISEASE WITHOUT 02/25/2019 GARZON DOGERMAN Ot 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 02/28/2019 ABDIRIZAKCELESTE , PABLO B Ot R18.8 OTHER ASCITES 03/15/2019 MAURA SPAIN MD, Ot C61 MALIGNANT NEOPLASM OF PROSTATE 03/15/2019 MAURA SPAIN MD, Ot G47.30 SLEEP APNEA, UNSPECIFIED 03/15/2019 MAURA SPAIN MD, Ot I10 ESSENTIAL (PRIMARY) HYPERTENSION 03/15/2019 MAURA SPAIN MD Ot R14.0 ABDOMINAL DISTENSION (GASEOUS) 03/15/2019 MAURA SPAIN MD, Ot R18.8 OTHER ASCITES 03/15/2019 MAURA SPAIN MD, Ot Z79.01 HOOKER LASTER (CURRENT) USE OF ANTICOAGULANT 03/15/2019 MAURA SPAIN MD Ot Z80.0 FAMILY HISTORY OF MALIGNANT NEOPLASM OF 03/15/2019 MAURA SPAIN MD Ot Z82.49 FAMILY HX OF ISCHEM HEART DIS AND OTH DI 03/15/2019 MAURA SPAIN MD, Ot Z85.51 PERSONAL HISTORY OF MALIGNANT NEOPLASM O 03/15/2019 MAURA SPAIN MD, Ot Z86.711 PERSONAL HISTORY OF PULMONARY EMBOLISM 03/15/2019 MAURA SPAIN MD, Ot Z87.19 PERSONAL HISTORY OF OTHER DISEASES OF TH 03/15/2019 MAURA SPAIN MD, Ot Z87.891 PERSONAL HISTORY OF NICOTINE DEPENDENCE 03/15/2019 MAURA SPAIN MD Ot Z90.49 ACQUIRED ABSENCE OF OTHER SPECIFIED PART 03/15/2019 MAURA SPAIN MD, Ot Z92.21 PERSONAL HISTORY OF ANTINEOPLASTIC CHEMO 03/15/2019 MAURA SPAIN MD, Ot Z96.0 PRESENCE OF UROGENITAL IMPLANTS Procedures Code Description Performed By Performed On [id number] INSPECTION OF GALLBLADDER , PERCUTANEOUS 09/19/2018 [id number] RESECTION OF GALLBLADDER, OPEN APPROACH 09/19/2018 [id number] ROBOTIC ASSISTED PROCEDURE OF TRUNK, PER 09/19/2018 [...] - 09/15/18 00:17 Bacterial blood culture NG NR Blood lactic acid measurement (moles/volume) - 09/15/18 00:27 Blood lactic acid measurement (moles/volume) 1.51 mmol/L 0.50-2.00 Bacterial blood culture - 09/15/18 01:17 Bacterial blood culture NG NR Complete blood count (CBC) with automated white [...] activity/volume) 27 U /L 25-125 Lipase - 11/15/18 22:20 Lipase 27 U/L 8-78 Methicillin resistant Staphylococcus aureus (MRSA) screening culture - 11:07 Methicillin resistant Staphylococcus aureus (MRSA) screening culture NEG [facility] Comprehensive metabolic panel - 01/08/19 17:24 Serum [...] calculation of estimated glomerular filtration rate > [facility] Serum or plasma glucose measurement (mass/volume) 167 [...] culture - 01/08/19 17:24 Bacterial blood culture [facility] Bacterial blood culture - 01/08/19 17:31 Bacterial blood culture [facility] PT panel in platelet poor plasma by [...] SPUTUM FLUID TISSUE - 02/20/19 12:50 FTX;REPORTABLE NO FUNGUS ISOLATED NRG Encounters ACCT No. Visit Date/Time Discharge Status Pt. Type Provider Facility Loc./Unit Complaint [id number] 03/15/2019 13:01:00 03/15/2019 23:59:59 CLS Outpatient BRIAN COFFEY MD [facility] ONC [id number] 03/12/2019 09:52:00 03/12/2019 13:05:00 DIS Outpatient PABLO THOMAS DO [facility] [id number] 03/12/2019 07:20:00 03/12/2019 09:23:00 DIS Outpatient MAURA SPAIN MD [facility] ER ABD PAIN [id number] 02/20/2019 11:30:00 02/20/2019 13:45:00 DIS Outpatient PABLO THOMAS DO [facility] R18.8 ASCITES [id number] 02/19/2019 06:51:00 02/19/2019 23:59:59 CLS Outpatient GERMAN GARZON DO [facility] RAD ASCITES,MALIGNANT [id number] 01/18/2019 19:11:00 01/18/2019 21:12:00 DIS Emergency LIDIA ISRAEL MD [facility] ER BLOOD IN URINE [id number] 01/09/2019 15:28:00 01/11/2019 14:01:00 DIS Inpatient IRLANDA UMAÑA MD [facility] 4TH SADDLE EMBOLISM, METASTATIC CA,BILAT PNUEMONIA [id number] 01/09/2019 12:15:00 01/09/2019 23:59:59 CLS Outpatient GERAMN GARZON DO [facility] RAD ELEVATED D-DIMER [id number] 01/08/2019 16:33:00 01/08/2019 23:59:59 CLS Outpatient GERMAN GARZON DO [facility] RAD CHEST PAIN [id number] 12/11/2018 10:47:00 12/11/2018 15:15:00 [id number] 12/07/2018 05:39:00 12/07/2018 14:25:00 DIS Outpatient TC ESPANA MD [facility] PREOP PROSTATE CANCER [id number] 11/14/2018 06:48:00 11/14/2018 09:10:00 DIS Outpatient JEANMARIE TAVARES MD [facility] ENDO SCREENING, ADENOCARCINOMA OF ?PRIMARY [id number] 11/09/2018 06:23:00 11/09/2018 10:43:00 DIS Outpatient JEANMARIE TAVARES MD [facility] PREOP COLONOSCOPY/EGD [id number] 09/21/2018 20:57:00 09/22/2018 01:35:00 DIS Emergency TAVO ETIENNE VILLALOBOS [facility] ER POST GALL BLADDER SURGERY COMPLICATIONS [id number] 09/19/2018 09:01:00 09/21/2018 11:33:00 DIS Inpatient TC ESPANA MD [facility] 4TH CHOLELITHIASIS [id number] 09/18/2018 10:38:00 09/18/2018 10:54:00 DIS Outpatient TC ESPANA MD [facility] PREOP CHLELITHIASIS [id number] 09/14/2018 21:34:00 09/15/2018 18:00:00 DIS Outpatient IRLANDA UMAÑA MD [facility] 4TH CHEST PAIN,N/V,METS PROSTATE CA [id number] 09/04/2018 12:01:00 09/04/2018 23:59:59 CLS Outpatient GERMAN GARZON DO [facility] RAD CA PROSTATE, HEMATURIA [id number] 11/12/2015 13:52:00 11/12/2015 23:59:59 CLS Outpatient GERMAN GARZON DO [facility] RAD LYMPHODEMA [id number] 10/16/2015 09:18:00 10/16/2015 23:59:59 CLS Outpatient RYANN VILLALOBOS GERMAN Wil [facility] RAD EDEMA LEFT CALF AND FOOT [id number] 09/09/2015 09:16:00 09/09/2015 23:59:59 CLS Outpatient RYANN VILLALOBOS GERMAN Wil [facility] RAD DYSPNEA,CLAUDICATION [id number] 09/05/2015 11:04:00 09/05/2015 23:59:59 CLS Outpatient GERMAN GARZON DO [facility] RAD DYSPNEA, CLAUDICATION , SYMPTOM [id number] 07/22/2015 14:20:00 07/22/2015 23:59:59 CLS Outpatient GERMAN GARZON DO [facility] CARD CHEST PAIN [id number] 03/10/2015 00:08:00 03/10/2015 23:59:59 CLS Preadmit DANIELA FELIPE MD [facility] ONC [id number] 12/09/2014 09:50:00 03/09/2015 00:01:00 DIS Outpatient DANIELA FELIPE MD [facility] ONC [id number] 10/23/2014 12:05:00 10/23/2014 23:59:59 CLS Outpatient AUGUSTINA DELUCA MD [facility] CARD PROSTATE CANCER [id number] 01/24/2014 06:15:00 01/24/2014 11:42:00 DIS Outpatient JEFRY DUFF DO [facility] SDC CYST ON BACK [id number] 01/23/2014 09:44:00 01/23/2014 23:59:59 CLS Outpatient JEFRY DUFF DO [facility] PREOP CYST ON BACK [id number] 06/12/2013 07:48:00 06/12/2013 09:55:00 DIS Outpatient JEANMARIE TAVARES MD [facility] SCREENING [id number] 06/07/2013 07:15:00 06/07/2013 23:59:59 CLS Outpatient JEANMARIE TAVARES MD [facility] PREOP SCREENING [id number] 05/22/2013 08:14:00 05/22/2013 23:59:59 CLS Outpatient GERMAN GARZON DO [facility] RAD LT LOWER QUAD PAIN [id number] 05/21/2013 09:04:00 05/21/2013 23:59:59 CLS Outpatient DANIELA FELIPE MD [facility] ONC [id number] 03/21/2019 08:30:00 PEN Preadmit PABLO THOMAS DO [facility] LUNG CANCER [id number] 01/17/2013 16:18:00 Document Registration [id number] 12/22/2012 08:48:00 Document Registration [id number] 11/24/2012 06:00:00 Document Registration [id number] 11/13/2012 15:29:00 Document Registration [id number] 09/12/2012 08:50:00 Document Registration [id number] 08/25/2012 11:16:00 Document Registration
[2019-03-21] MEDS ORDERED: LACTATED RINGERS 1,000 ML IV PRN (07:11)
[2019-03-21] MEDS ORDERED: ceFAZolin 2 GM/50 ML NS 50 ML IV ONE (07:15)
[2019-03-21] MEDS ORDERED: ONDANSETRON 4 MG/2 ML (SDV) Z0FRAN IV ONE (07:30)
[2019-03-21] MEDS ORDERED: FAMOTIDINE 20MG/2ML IV (PEPCID) IV ONE (07:30)
[2019-03-21] MEDS ORDERED: SEVOFLURANE (ULTANE) 15 ML INHAL SOLN ONE ×2 (07:33→08:25)
[2019-03-21] MEDS ORDERED: fentaNYL INJECTION 100 MCG/2 ML AMP ONE (07:33)
[2019-03-21] MEDS ORDERED: PROPOFOL INJECTION 50 ML IV ONE (07:33)
[2019-03-21] MEDS ORDERED: TRAZ-189 PO ×2 (08:15)
[2019-03-21] MEDS ORDERED: BENZ100C18 PO ×2 (08:15)
[2019-03-21] MEDS ORDERED: MIDAZOLAM 2 MG/2 ML (VERSED) VIAL ONE (08:24)
--- NOTE | 2019-03-21 08:32 | Progress Note-Pre Operative ---
Pre-Operative Progress Note H&P Reviewed The H&P was reviewed, patient examined and no changes noted. Time Seen by Provider: 08:24 Date H&P Reviewed: March 21, 2019 Time H&P Reviewed: 08:25 Pre-Operative Diagnosis: Malignant Ascites Assessment/Plan Assessment/Plan Assess & Plan/Chief Complaint Malignant Ascites Pt has had 2 paracentesis and continues to have ascites accumulate at a fast rate. Family and Oncologist have asked for a longer term solution. Therefore, we will place a Pleur-X catheter in abdomen for pt. Risks and complications discussed with pt and his family; including but not limited to pain, bleeding, infection and scar. It is also probable that the in-dwelling catheter can get clogged up or stuck in between bowel loops and stop working. All questions answered to their satisfaction. PABLO THOMAS DO March 21, 2019 08:32
--- NOTE | 2019-03-21 09:14 | Progress Note-Post Operative ---
Post-Operative Progess Note Surgeon (s)/Paper Grader (s) Surgeon PABLO THOMAS DO Paper Grader: NONE Pre-Operative Diagnosis Malignant Ascites Post-Operative Diagnosis same Procedure & Operative Findings Date of Procedure 03/21/19 Procedure Performed/Findings Pleur-X Catheter Insertion with US guidance Anesthesia Type IV sedation by CLIENT SUPPORT CONSULTANT Estimated Blood Loss Estimated blood loss (mL): scant Specimens/Packing Specimens Removed ascitic fluid PABLO THOMAS DO March 21, 2019 09:14
--- NOTE | 2019-03-21 09:16 | Discharge Inst-Surgical ---
Discharge Inst-Surgical Depart Medication/Instructions New, Converted or Re-Newed RX: Other (No Rx needed) Patient Instructions Follow up Appt: Make appointment for 1 week. [phone] Instructions: No strenuous activity. May shower in 24 hours, no tub bath or soaking. Use incentive spirometer at home as directed. No Smoking Skin/Wound Care: May remove bandages in am. You need to leave the Dermabond on incision it will fall off on it's own. Symptoms to Report: Appetite Changes, Extremity Discoloration, Numbness/Tingling, Swelling Increased , Bleeding Excessive, Eyesight Changes, Pain Increased, Urine Color Change, Constipation(Persistent), Fever over 101 degree F, Pain/Pressure in chest, Urinating Difficulty, Cough Up/Vomit Blood, Heart Beat Irreg/Pounding, Pain/ Pressure in jaw, Cramps in feet or legs, Lightheadedness, Pain/Pressure in shoulder, Diarrhea(Persistent), Memory Changes Suddenly, Questions/Concerns, Weight gain consecutive days, Dizziness/Fainting, Nausea/Vomiting, Shortness of Breath, Weight gain over 2 pounds If questions or concerns contact your physician Or seek help at emergency department. Activity Activity as Tolerated: Yes Activity Instructions: Avoid Stress to Incision Driving Instructions: No Driving/Refer to Dr. Ortez Discharge Diet: Low Sodium Diet If Any Problems/Questions/Issu: Contact Your Physician, Go to Emergency Room Skin/Wound Care Infection Signs and Symptoms: Increased Redness, Foul Odor of Wound, Increased Drainage, Skin Itchy or Has a Rash, Increased Swelling, Temperature Above 101 F Bathing Instructions: PABLO Quiles DO March 21, 2019 09:16
[2019-03-21] MEDS ORDERED: fentaNYL INJECTION 100 MCG/2 ML AMP IVP ONE (09:30)
[2019-03-21] MEDS ORDERED: MEPERIDINE (DEMEROL) INJ 50 MG/ML IVP ONE (09:30)
[2019-03-21] MEDS ORDERED: ONDANSETRON 4 MG/2 ML (SDV) Z0FRAN IVP PRN (09:30)
[2019-03-21] MEDS ORDERED: morphine INJ 10 MG/ML 1ML (SYR OR VIAL) IVP ONE (09:30)
--- NOTE | 2019-03-21 09:37 | NUR ---
THIS RN INQUIRED WITH FAMILY ABOUT PLAN AFTER DISCHARGE. THEY INFORMED THEY HAD SPOKEN WITH [facility] AND WERE TOLD TO CONTACT THEM SOON PATIENT IS DISCHARGED. THIS RN PHONED [facility] AT THIS TIME AND AT 0948 AND LEFT MESSAGE TO PHONE THIS RN BACK. WILMAN PHONED THIS RN BACK AT 0948 AND THIS RN INFORMED OF [facility]AC[facility] AND ASKED IF THEY WERE GOING TO PROVIDE TEACHING AND MAINTENANCE FOR PATIENT AND FAMILY. [facility] INFORMED THAT ONCE PATIENT WAS DISCHARGE THEY WOULD BE PROVIDING CARE ONCE FAMILY PHONED THEM. THIS RN EDUCATED FAMILY ON [facility] CARE PACKET AND THEY INFORMED THEY HAD DVD ACCESS TO WATCH INSTRUCTIONS AT HOME AND TO PHONE HOSPICE UPON DISCHARGE. PATIENT VERBALIZED UNDERSTANDING TEACHING AND INSTRUCTIONS.
--- NOTE | 2019-03-21 12:16 | Anesthesia-General Post-Op ---
MAC Patient Condition Mental Status/LOC: Same as Preop Cardiovascular: Satisfactory Nausea/Vomiting: Absent Respiratory: Satisfactory Pain: Controlled Complications: Absent Post Op Complications Complications None Follow Up Care/Instructions Patient Instructions None needed. Anesthesiology Discharge Order Discharge Order Patient is doing well, no complaints, stable vital signs, no apparent adverse anesthesia problems. No complications reported per nursing. LUCA MEDLEY CRNA March 21, 2019 12:16
--- NOTE | 2019-03-21 13:19 | OPERATIVE REPORT ---
DATE OF SERVICE: 03/21/2019 PREOPERATIVE DIAGNOSES: Malignant ascites. POSTOPERATIVE DIAGNOSES: Malignant ascites. PROCEDURE: PleurX catheter placement with ultrasound guidance. SURGEON: Jose Alejandro Sarah DO SNORKELLING INSTRUCTOR: None. ANESTHESIA: IV sedation. SPECIMEN: Malignant fluid, abdominal ascites. BLOOD LOSS: Scant. FLUIDS: Per anesthesia. POSTOPERATIVE CONDITION: Stable. INDICATION FOR PROCEDURE: The patient is a 78-year-old male, who unfortunately has malignant ascites that continues to come back. He has had two paracentesis done and his doctor and oncologist now would like a PleurX indwelling catheter to drain the ascites. He does not have to have the paracentesis every time. FINDINGS: The patient had a PleurX catheter placed in the right lower quadrant with ultrasound guidance. PROCEDURE NOTE: After informed consent was obtained, the patient was brought to the operating room, placed on the table in supine position. He was sterilely prepped and draped in normal fashion. Local lidocaine was used to infiltrate the skin in the right lower quadrant, down closer to the ASIS and then about 5 or 6 cm above, another area was infiltrated with local and then in between these areas, infiltrated with local. I then made a small stab incision with #11 blade at each of these sites, again approximately 6 cm apart and then from the superior one, tunneled the PleurX catheter down to the inferior one to bring this through and then using ultrasound guidance, I watched as the needle entered the abdomen. I immediately got fluid, removed the needle and I then placed the guidewire down the catheter using Seldinger technique. It went in easily. Ultrasound showed that was in place and then over the guidewire, used the dilators to dilate up to 16-Swiss and then with the second dilator, removed the inner portion, immediately got huge medley of ascites. Placed a PleurX catheter down this, till it was all the way placed into the abdomen and then removed this dilator and then pulled the catheter up a little bit, could feel the Velcro and still inside the skin. At this point, then hooked it up to vacuum suction and then closed the small stab incision with a 4-0 subcuticular stitch. Area was cleaned and dried and dressing placed at the top. It was in good position. Drained out about a liter and then hooked up another suction canister. The patient tolerated the procedure. He is still recovering, still in the operating room while I am doing this, doing well. Job ID: [id number] DocumentID: [id number] Dictated Date: 03/21/2019 09:12:09 Cannon Pinion Adjuster Date: 03/21/2019 13:18:50 Dictated By: JOSE ALEJANDRO SARAH DO
== END 2019-03-21 10:30 | disposition home or self-care (01) ==
LOC: SDC 06:57
PROVIDERS: ATTEND Surgery
DX: R18.0 Malignant ascites (principal); Z11.2 Encounter for screening for other bacterial diseases; C61 Malignant neoplasm of prostate; I10 Essential (primary) hypertension; G47.33 Obstructive sleep apnea (adult) (pediatric); K21.9 Gastro-esophageal reflux disease without esophagitis; Z85.51 Personal history of malignant neoplasm of bladder; Z79.01 Long term (current) use of anticoagulants; Z87.891 Personal history of nicotine dependence; Z86.711 Personal history of pulmonary embolism; Z79.899 Other long term (current) drug therapy
CPT/HCPCS: 87081